=== PATIENT | male | born 1950 | race Caucasian/White ===

== ENCOUNTER 2019-07-17 21:24 | Emergency (ER) | payer OTHER ==
--- OUTSIDE RECORDS SUMMARY | 2019-07-17 21:26 | XMS REPORT | Clinical Summary ---
:1950 Author Organization [facility] Address [address] [place] [address] Care Team Providers Name Role Phone Huang Primary Care Provider Allergies No Known Allergies Medications Medication Sig Dispensed Refills Start Date End Date Status atorvastatin Take 40 mg by mouth 0 Active (LIPITOR) 40 MG daily. tablet gabapentin Take 300 mg by mouth 0 Active (NEURONTIN) 300 MG daily. capsule glyBURIDE-metFORMIN Take 1 tablet by 0 Active (GLUCOVANCE) 5-500 mouth 2 (two) times mg per tablet daily. insulin detemir Inject 30 Units 0 Active (LEVEMIR) 100 subcutaneously every unit/mL morning . injectionIndications : type 2 diabetes mellitus acetaminophen Take 1,000 mg by 0 Active (TYLENOL) 500 MG mouth every 6 (six) tablet hours as needed for Pain. insulin detemir Inject 30 Units 0 Active (LEVEMIR) 100 subcutaneously unit/mL nightly. injectionIndications : type 2 diabetes mellitus oxybutynin Take 1 tablet (5 mg 30 tablet 0 09/10/2016 Active (DITROPAN) 5 MG total) by mouth 3 tablet (three) times daily as needed (for bladder spasm) for up to 30 doses. 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 May require drainage after bleeding controlled Renal mass 08/17/2016 Social History Tobacco Use Types Packs/Day Years Used Date Former Smoker 25 Smokeless Tobacco: Current User Snuff Comments: quit smoking 20 yrs ago Alcohol Use Drinks/Week oz/Week Comments Yes occasionally Sex Assigned at Date Recorded Not on file Job Start Date Occupation Industry Not on file Not on file Not on file Travel History Travel Start Travel End No recent travel history available. Last Filed Vital Signs Not on file Plan of Treatment Not on file Results Not on fileafter 07/16/2018 Insurance Payer Benefit Plan / Group Subscriber ID Type Phone Address MEDICARE MEDICARE A B xxxxxxxxxx Medicare Advance Directives For more information, please contact:[address] [phone] Code Status Date Activated Date Inactivated Comments Full Code 09/05/2016 7:37 PM 09/10/2016 5:06 PM This code status was determined by: Patient Full Code 09/04/2016 11:18 PM 09/05/2016 7:37 PM This code status was determined by: Patient Full Code 08/26/2016 7:33 AM 08/27/2016 4:31 PM This code status was determined by: Patient Full Code 08/17/2016 7:51 PM 08/19/2016 8:24 PM This code status was determined by: Patient
--- OUTSIDE RECORDS SUMMARY | 2019-07-17 21:27 | XMS REPORT | Continuity of Care Document ---
:1950 Author Organization [facility] Address [address] [place] [address] Phone Unavailable Care Team Providers Name Role Phone HORTENSIA RENTERIA Primary Care Physician Insurance Providers Guarantor Sotero Menendez Address [address] [place] [address] Email NONE Payer [facility] Policy Number [id number] Subscriber's Name Sotero Menendez Relationship Self / Same As Patient Group Number [id number] Group Name NA Advance Directives Directive Response Recorded Date/Time Advance Directives No 04/03/16 8:25pm Advance Directive on File No 12/11/18 2:19pm Directive to Physicians/Living Will No 04/03/16 5:08pm Health Care Proxy No 04/03/16 5:08pm Name of Surrogate/Decision Maker NA 12/11/18 2:21pm Organ Donor No 04/03/16 5:08pm Medical Power of Registration Manager No 04/03/16 5:08pm Patient/Family Given Education Material R/T Y - 02--...MP 12/11/18 2: 21pm Directives? Chief Complaint and Reason for Visit Chief Complaint Neuro Symptoms/ Deficits Reason for Visit CVA (cerebral vascular accident) NSTEMI (non-ST elevated myocardial infarction) Problems Medical Problem Onset Date Status Anemia Unknown Acute Chest pain Unknown Acute HTN (hypertension) Unknown Chronic Hematuria Unknown Acute History of renal cell cancer Unknown Chronic Hypoglycemia Unknown Acute Hyponatremia Unknown Leukocytosis Unknown Acute Perinephric hematoma Unknown Acute Postoperative urinary retention Unknown Acute Seizure Unknown Acute Urinary tract infection Unknown Resolved Past Problems Medical Problem Onset Date Status Abdominal pain Unknown Acute Avulsion of skin of face Unknown Acute CVA (cerebral vascular accident) Unknown Acute Diabetes mellitus with hyperglycemia Unknown Acute Elevated lipase Unknown Acute Facial laceration Unknown Acute History of kidney cancer Unknown Acute Left flank pain Unknown Acute NSTEMI (non-ST elevated myocardial infarction) Unknown Acute Pyelonephritis Unknown Acute Syncope Unknown Acute Uncontrolled diabetes mellitus Unknown Acute Medications Current Home Medications Medication Dose Units Route Directions Days Qty Instructions Start Date Acetaminophen 2 Tab ORAL Every 6 (Tylenol *) 500 Hours Mg Tab (02-15--) as needed for Pain Aspirin (Aspirin 81 Mg ORAL Daily for 30 Chew *) 81 Mg Chw Cad Tab 8 Atorvastatin * 40 Mg ORAL Once Daily 90 (Lipitor *) 40 At Bedtime Tablet Mg Tab Cefdinir 300 Mg 300 Mg ORAL Twice A Day 14 Cap Cap for Uti 8 Detemir 30 Units SUBCUTANEOUS Every 12 (Levemir) 100 Hours Unit/Ml Inj Enalapril 5 Mg ORAL Daily 30 Maleate (Vasotec Tablet 5 Mg*) 5 Mg Tab Levetiracetam 500 Mg ORAL Twice A Day 60 (Keppra 500 Mg*) for Seizures Tablet 8 500 Mg Tab Metformin Hcl 1 Tab ORAL Twice A Day (Glucophage *) 500 Mg Tab Past Home Medications Medication Directions Ordered Status Cefdinir 300 Mg Cap, 300 Mg Oral Every 12 Hours for Fever 03/15/18 Discontinued Enalapril Maleate (Enalapril Maleate Daily Discontinued 10 Mg) 10 Mg Tab, 1 Tab Oral Glyburide/Metformin (Glucovance 5/500 Twice A Day Discontinued Mg *) 1 Ea Tab, 2 Tab Oral Insulin Asp Prt/Insulin Aspart * Every Morning Discontinued (Novolog Mix 70/30 Flexpen *) Inj, 45 Units Subcutaneous Insulin Asp Prt/Insulin Aspart * Every Evening Discontinued (Novolog Mix 70/30 Flexpen *) Inj, 20 Unit Subcutaneous Insulin Detemir (Levemir 100 Units/Ml Every Morning Discontinued Insulin*) 100 Units/ Inj, 50 Units Subcutaneous Levofloxacin (Levaquin 500 Mg*) 500 Mg Daily 09/04/16 Discontinued Tab, 1 Tab Oral Metformin Hcl (Glucophage 1000 Mg *) 1 Every Morning Discontinued 000 Tab, 1500 Mg Oral Metformin Hcl (Glucophage 1000 Mg *) 1 Every Evening Discontinued 000 Tab, 1000 Mg Oral Nitroglycerin (Nitrostat 0.4 Mg *) 0.4 As Directed 04/04/16 Discontinued Mg Sub, 1 Tab Sublingual Simvastatin (Simvastatin *) 40 Mg Tab, Once Daily At Bedtime Discontinued 40 Mg Oral Social History Social History Problem Response Recorded Date/Time Onset Date Status History of kidney surgery 08/24/2016 6:40pm Unknown Active Hx Alcohol Use Y - ONCE IN A WHILE 04/06/2018 8:45pm Not Applicable Not Applicable Hx Physical Abuse No 12/11/2018 2:19pm Not Applicable Not Applicable Smoking Status Start Date Stop Date Former smoker Hospital Discharge Instructions No hospital discharge instruction information available. Plan of Care Discharge Date 12/11/18 3:55pm Forms Provided Portal Welcome Letter Prescriptions See Medication Section Referrals HORTENSIA RENTERIA Address: [address] [place] [id number] Functional Status No functional status information available. Allergies, Adverse Reactions, Alerts Allergen Type Severity Reaction Status Last Updated No Known Allergies Allergy Unknown Active 02/14/14 Immunizations Immunization Event Date Type Not Given Dose Number Lot Number Senior Software Qa Engineer Reason TDaP 04/06/18 Administered 1 [id number] SANOFI PS Vital Signs Acute Vital Signs Vital Response Date/Time Blood Pressure 158/83 mm Hg 12/11/2018 4:26pm Pulse Pulse Rate (adult) 81 beats per minute (60 - 100) 12/11/2018 4:26pm Respiratory Rate 20 breaths per minute (10 - 24) 12/11/2018 4:26pm Temperature Source Oral 12/11/2018 4:26pm Height 5 ft 7 in 12/11/2018 2:19pm Weight 185 lb 12/11/2018 2:19pm Body Mass Index 29.0 kg/m^2 12/11/2018 2:19pm Results Laboratory Results Test Name Result Units Flags Reference Collection Result Comments Date/Time Date/Time White Blood 5.1 K/ul 4.0-12.3 12/11/2018 12/11/2018 Count 2:45pm 2:50pm Red Blood Count 4.47 M/ul 3.80-5.80 12/11/2018 12/11/2018 2:45pm 2:50pm Hemoglobin 12.9 g/dl 11.67-17.2 12/11/2018 12/11/2018 2 2:45pm 2:50pm Hematocrit 40.3 % # 35.0-51.0 12/11/2018 12/11/2018 2:45pm 2:50pm Mean Corpuscular 90.2 fl 78-96 12/11/2018 12/11/2018 Volume 2:45pm 2:50pm Mean Corpuscular 28.8 pg 26.8-33.4 12/11/2018 12/11/2018 Hemoglobin 2:45pm 2:50pm Mean Corpuscular 32.0 g/dl L 32.3-36.7 12/11/2018 12/11/2018 Hemoglobin 2:45pm 2:50pm Concent Red Cell 12.9 % 11.6-15.4 12/11/2018 12/11/2018 Distribution 2:45pm 2:50pm Width Platelet Count 179 K/ul 115-328 12/11/2018 12/11/2018 2:45pm 2:50pm Mean Platelet 10.8 fl 8.4-11.8 12/11/2018 12/11/2018 Volume 2:45pm 2:50pm Neutrophils (%) 64.2 % 44.7-82.4 12/11/2018 12/11/2018 (Auto) 2:45pm 2:50pm Lymphocytes (%) 25.2 % 10.0-50.0 12/11/2018 12/11/2018 (Auto) 2:45pm 2:50pm Monocytes (%) 7.6 % 3.9-13.4 12/11/2018 12/11/2018 (Auto) 2:45pm 2:50pm Eosinophils (%) 1.9 % 0.0-6.43 12/11/2018 12/11/2018 (Auto) 2:45pm 2:50pm Basophils (%) 1.2 % H 0.0-0.72 12/11/2018 12/11/2018 (Auto) 2:45pm 2:50pm Prothrombin Time 9.3 SECONDS L 10.3-12.3 12/11/2018 12/11/2018 2:45pm 3:01pm THERAPEUTIC LEVEL: 1.5 to 1.9 times normal range of PT Prothromb Time 0.84 12/11/2018 12/11/2018 International 2:45pm 3:01pm Recommended therapeutic range for patients receiving Ratio warfarin (coumadin) therapy: INR is 2.0 to 3.0 Recommended range for patients with mechanical prosthetic heart valves: INR is 2.5 to 3.5 Activated 24.8 SECONDS 22.5-37.0 12/11/2018 12/11/2018 Partial 2:45pm 3:01pm Thromboplast Time Urine Color LIGHT 12/11/2018 12/11/2018 YELLOW 3:53pm 4:14pm Urine Appearance CLEAR CLEAR 12/11/2018 12/11/2018 3:53pm 4:14pm Urine Glucose 4+ (1000 H NEGATIVE 12/11/2018 12/11/2018 mg/dL) 3:53pm 4:14pm Urine Bilirubin NEGATIVE NEGATIVE 12/11/2018 12/11/2018 3:53pm 4:14pm Urine Ketones NEGATIVE NEGATIVE 12/11/2018 12/11/2018 3:53pm 4:14pm Urine Specific 1.019 1.003-1.03 12/11/2018 12/11/2018 Kimberly 0 3:53pm 4:14pm Urine Blood 1+ H NEGATIVE 12/11/2018 12/11/2018 (SMALL) 3:53pm 4:14pm Urine pH 6.500 5-9 12/11/2018 12/11/2018 3:53pm 4:14pm Urine Protein 3+ (300 H NEGATIVE 12/11/2018 12/11/2018 mg/dL) 3:53pm 4:14pm Urine NORMAL mg/dL 0.2-1.0 12/11/2018 12/11/2018 Urobilinogen 3:53pm 4:14pm Urine Nitrate NEGATIVE NEGATIVE 12/11/2018 12/11/2018 3:53pm 4:14pm Urine Leukocyte NEGATIVE NEGATIVE 12/11/2018 12/11/2018 Esterase 3:53pm 4:14pm Urine RBC 1-5 /hpf 0-5 12/11/2018 12/11/2018 3:53pm 4:14pm Urine WBC <1 /hpf 0-5 12/11/2018 12/11/2018 3:53pm 4:14pm Urine Epithelial <1 /hpf 0-5 12/11/2018 12/11/2018 Cells 3:53pm 4:14pm Urine Bacteria None /hpf None 12/11/2018 12/11/2018 Detected Detect 3:53pm 4:14pm Urine Casts None /lpf None 12/11/2018 12/11/2018 Detected Detect 3:53pm 4:14pm Urine Culture NO 12/11/2018 12/11/2018 Reflexed 3:53pm 4:14pm Random Glucose 347 mg/dL H 82-115 12/11/2018 12/11/2018 2:45pm 3:06pm Blood Urea 25 mg/dL H 8-23 12/11/2018 12/11/2018 Nitrogen 2:45pm 3:06pm Serum Osmolality 283 280-300 12/11/2018 12/11/2018 2:45pm 3:06pm Creatinine 1.5 mg/dL H 0.70-1.20 12/11/2018 12/11/2018 2:45pm 3:06pm Glomerular 46.82 L 12/11/2018 12/11/2018 GFR RESULTS ARE REPORTED IN mL/min/1.73m2. Filtration Rate 2:45pm 3:06pm Calc Normal GFR: >60mL/min Moderately decreased GFR: 30-59 mL/min Severely decreased GFR: 15-29 mL/min Kidney Failure (or Dialysis): <15 mL/min The calculated eGFR is not valid for patients younger than 18 years or older than 75 years. BUN/Creatinine 16.7 12-12/11/2018 12/11/2018 Ratio 2:45pm 3:06pm Sodium Level 132 mmol/L L 135-145 12/11/2018 12/11/2018 2:45pm 3:06pm Potassium Level 4.3 mmol/L 3.5-5.2 12/11/2018 12/11/2018 2:45pm 3:06pm Chloride Level 100 mmol/L 98-108 12/11/2018 12/11/2018 2:45pm 3:06pm Carbon Dioxide 23 mmol/L 21-32 12/11/2018 12/11/2018 Level 2:45pm 3:06pm Anion Gap 13.3 mEq/L 12-12/11/2018 12/11/2018 2:45pm 3:06pm Calcium Level 9.4 mg/dL 8.8-10.2 12/11/2018 12/11/2018 2:45pm 3:06pm Total Protein 7.8 g/dL 6.6-8.7 12/11/2018 12/11/2018 2:45pm 3:06pm Albumin 3.7 g/dL 3.5-5.2 12/11/2018 12/11/2018 2:45pm 3:06pm Globulin 4.1 gm/dL 12/11/2018 12/11/2018 2:45pm 3:06pm Albumin/Globulin 0.9 >1.0 12/11/2018 12/11/2018 Ratio 2:45pm 3:06pm Total Bilirubin 0.5 mg/dL 0.0-1.2 12/11/2018 12/11/2018 2:45pm 3:06pm Aspartate Amino 12 U/L L 15-40 12/11/2018 12/11/2018 Transf 2:45pm 3:06pm (AST/SGOT) Alanine 12 U/L 0-41 12/11/2018 12/11/2018 Aminotransferase 2:45pm 3:06pm (ALT/SGPT) Total Alkaline 163 U/L H 40-130 12/11/2018 12/11/2018 Phosphatase 2:45pm 3:06pm Creatine Kinase 95 U/L 20-200 12/11/2018 12/11/2018 2:45pm 3:06pm Troponin I < 0.30 ng/mL 0.0-0.5 12/11/2018 12/11/2018 Published clinical studies have shown elevations of cTnI in 2:45pm 3:09pm patients with myocardial injury, as seen in unstable angina pectoris, cardiac contusions, and heart transplants. Elevations have also been seen in patients with rhabdomyolysis and polymyositis. Elevated troponin levels point to myocardial injury, but are not necessarily indicative of an ischemic mechanism. The term ND should be used when there is evidence of cardiac damage, as detected by marker proteins in a clinical setting consistent with myocardial ischemia. If the clinical circumstance suggests that an ischemic mechanism is unlikely, other causes of cardiac injury should be considered. For diagnostic purposes, the results should always be assessed in conjunction with the patient's medical history, clinical examination and other findings. Creatine Kinase 5.1 ng/ml H 0.0-3.6 12/11/2018 12/11/2018 MB 2:45pm 3:09pm DIAGNOSTIC CITERIA: CKMB CKMB RELATIVE INDEX SUGGESTIVE OF NON-AMI < or=5 N/A JONES ZONE (INCONCLUSIVE) > 5 < or=4 SUGGESTIVE OF AMI >5 > 4 Procedures Procedure Status Date Provider(s) Computed tomography of head without contrast Completed 12/11/18 ADEEL FAM MD X-ray of chest, single view Completed 12/11/18 ADEEL FAM MD Encounters Encounter Location Arrival/Admit Date Discharge/Depart Date Attending Provider Departed [place] 12/11/18 2:16pm 12/11/18 3:55pm [facility], Emergency Room [facility] Recent Diagnosis
--- OUTSIDE RECORDS SUMMARY | 2019-07-17 21:27 | XMS REPORT | Encounter Summary ---
:1950 Author Care Team Providers Name Role Phone Rigoberto Vann MD Primary Care Provider [phone] Reason for Visit Follow Up Visit Instructions 1. Closed trimalleolar fracture of left ankle orthopedic referral Discussion Note: None recorded.Patient educational handouts: No information available. Plan of Care Reminders Provider Appointments None recorded. Lab None recorded. Referral Orthopedic Trae Panchavi Referral 06/08/2019 MD Procedures None recorded. Surgeries None recorded. Imaging None recorded. Medications Name Start Date enalapril maleate 5 mg tablet Levemir FlexTouch U-100 Insulin 100 unit/mL (3 mL) subcutaneous pen metformin 500 mg tablet tramadol 50 mg tablet Take 1 tablet every 6 hours by oral route. Medications Administered None recorded. Vitals Height Weight BMI Blood Pressure 67 in 185 lbs 29 kg/m2 98/64 mm[Hg] Lab Results None recorded. Allergies Code Code System Name Reaction Severity Status Onset NKDA Problems Name Status Onset Date Source Blood in Urine Active Encounter Procedures None recorded. Vaccine List None recorded. Social History Tobacco Smoking Status Never Smoker Past Encounters 06/08/2019 Closed Trimalleolar Fracture of Left Ankle Joesph Izaguirre MD: [address] [facility] [address], [place] [address], Ph. [phone] 06/05/2019 Closed Trimalleolar Fracture of Left Ankle; Coronary Arteriosclerosis in Alutiiq Artery; History of Coronary Artery Bypass Grafting; Essential Hypertension; Mixed Hyperlipidemia; Cerebrovascular Disease; Type 2 Diabetes Mellitus without Complication Rigoberto Vann MD: [address] [facility], [address], [place] [address], Ph. History of Present Illness Ankle Reported By: Patient HPI: Location: left. Quality: aching. Severity: moderate. Duration: continuous since onset. Timing: acute. Context: fall. Alleviating Factors: nothing helps. Previous Surgery: none. Prior Imaging: x ray. Previous Injections: none. Previous PT: none. Work Related: no. Working: no Review of Systems None recorded. Physical Exam Ankle/Foot Reported By: Patient Psychiatric: Orientation: oriented to time, oriented to place, oriented to person. Mood and Affect: active and alert, normal mood, normal affect Ankles and Feet: Inspection Left: ; let ankle in splint evidence of eigth bearing obvious deformity and subluxation is present reveiew of xrays 20 days prior reveal minmallly displace trimallolar ankle fracture pavan subluxed at this point. Inspection of the Toes Right: ; splint is removed and reasplinted in some reduction the medial skin envelope is clearly threatend and there is obvios threatend viability in the medial ankle skin will likely re external fixation at this point will refer to tertiary center for now jayla
--- OUTSIDE RECORDS SUMMARY | 2019-07-17 21:27 | XMS REPORT ---
:1950 Author Organization [facility] Address [address] [place] [address] Care Team Providers Name Role Phone Unavailable Unavailable Unavailable Problems This patient has no known problems. Allergies, Adverse Reactions, Alerts This patient has no known allergies or adverse reactions. Medications This patient has no known medications. Encounters Start End Encounter Admission Attending Care Care Encounter Date/Time Date/Time Type Type Clinicians Facility Department ID 2018-12-11 Inpatient U [facility] [id number] 17:29:00
--- OUTSIDE RECORDS SUMMARY | 2019-07-17 21:27 | XMS REPORT | Summary of Care ---
:1950 Author Organization [facility] Address [address] [place] [id number] Care Team Providers Name Role Phone Faviola Ortiz Monica Primary Care Provider Reason for Referral Radiology Services (Routine) Status Reason Specialty Diagnoses / Referred By Referred To Procedures Contact Contact New Request Diagnostic Diagnoses Deformity of left ankle joint Panchbhavi, Radiology Procedures XR ANKLE 3+ VW BILATERAL MD Trae [address] [place] [address] Radiology Services (Routine) Status Reason Specialty Diagnoses / Referred By Referred To Procedures Contact Contact New Request Diagnostic Diagnoses Deformity of left ankle joint Panchbhavi, Radiology Procedures XR FOOT 3+ VW BILATERAL MD Trae [address] [place] [id number] Reason for Visit Reason Comments New Patient left ankle pain (Routine) Status Reason Specialty Diagnoses / Referred By Referred To Procedures Contact Contact New Request ORT-ORTHOPAEDIC Diagnoses Broken ankle, left, closed, initial encounter LEFT BROKEN ANKLE06/09 @ 2:45 LVM to offer sooner appt/nrl [facility] Panchbhavi, SURGERY / Procedures CONSULT/REFERRAL ORTHOPAEDIC SURGERY NEW VISIT (FIRST TIME) Faculty MD [facility] [address] [place] [id number] [place] [address] Phone: [phone] Phone: Encounter Details Date Type Department Care Team Description 06/19/2019 Office Visit [facility] Orthopaedic Panchbhavi, Deformity of left Surgery- [place] MD Tra[facility] ankle joint (Primary [place] [address]) [address] [place], [place] [address] [place], [place] [phone] Allergies No Known Allergiesdocumented as of this encounter (statuses as of 06/19/2019) Medications Medication Sig Dispensed Refills Start Date End Date Status LEVEMIR FLEXTOUCH U-100 INJECT 35 UNITS 0 06/09/2019 Active INSULN 100 unit/mL (3 TWICE DAILY SUB-Q mL) injection metFORMIN 500 mg tablet TAKE 1 TABLET BY 0 06/16/2019 Active MOUTH TWICE DAILY WITH MORNING AND EVENING MEALS traMADol 50 mg tablet TAKE ONE TABLET 0 05/23/2019 Active BY MOUTH TWICE DAILY NEEDED FOR PAIN insulin detemir U-100 inject 30 Units 0 Active 100 unit/mL injection under the skin. glyBURIDE-metformin Take 1 tablet by 0 Active 5-500 mg tablet mouth. enalapril 5 mg tablet Take 5 mg by 0 Active mouth. atorvastatin 40 mg Take 40 mg by 0 Active tablet mouth. acetaminophen-codeine Take 1 tablet by 0 Active 300-30 mg tablet mouth. acetaminophen 500 mg Take 1,000 mg by 0 Active tablet mouth. documented as of this encounter (statuses as of 06/19/2019) Active Problems Not on filedocumented as of this encounter (statuses as of 06/19/2019) Social History Tobacco Use Types Packs/Day Years Used Date Former Smoker Smokeless Tobacco: Never Used Sex Assigned at Date Recorded Not on file Job Start Date Occupation Industry Not on file Not on file Not on file Travel History Travel Start Travel End No recent travel history available. documented as of this encounter Last Filed Vital Signs Vital Sign Reading Time Taken Comments Blood Pressure - - Pulse - - Temperature 36.3 C (97.3 F) 06/19/2019 11:16 AM CDT Respiratory Rate - - Oxygen Saturation - - Inhaled Oxygen Concentration - - Weight - - Height - - Body Mass Index - - documented in this encounter Progress Notes Ricky Kate DO - 06/19/2019 11:30 AM CDT ORTHOPAEDIC CLINIC NOTE Patient: Sotero Francois Patient Age: [age] year old Gender: male SUBJECTIVE: CC: left ankle pain HISTORY OF PRESENT ILLNESS Sotero Francois is a 68 year old male who presents with a one month old fracture dislocation of theankle. Send from [facility] Lives in [address] [place] [address]. PAST HISTORIES PMH of diabetes and CAD with coronary intervention No reported previous ankle procedures Family history non contributory MEDICATIONS Current Outpatient Medications Medication Sig Dispense Refill acetaminophen 500 mg tablet Take 1,000 mg by mouth. acetaminophen-codeine 300-30 mg tablet Take 1 tablet by mouth. atorvastatin 40 mg tablet Take 40 mg by mouth. enalapril 5 mg tablet Take 5 mg by mouth. glyBURIDE-metformin 5-500 mg tablet Take 1 tablet by mouth. insulin detemir U-100 100 unit/mL injection inject 30 Units under the skin. LEVEMIR FLEXTOUCH U-100 INSULN 100 unit/mL (3 mL) injection INJECT 35 UNITS TWICE DAILY SUB-Q 0 metFORMIN 500 mg tablet TAKE 1 TABLET BY MOUTH TWICE DAILY WITH MORNING AND EVENING MEALS 0 traMADol 50 mg tablet TAKE ONE TABLET BY MOUTH TWICE DAILY NEEDED FOR PAIN 0 No current facility-administered medications for this visit. ALLERGIES No Known Allergies SOCIAL Social History Occupational History Not on file Tobacco Use Smoking status: Former Smoker Smokeless tobacco: Never Used Substance and Sexual Activity Alcohol use: Not on file Drug use: Not on file Sexual activity: Not on file REVIEW OF SYSTEMS Pertinent ROM can be found in HPI OBJECTIVE: PHYSICAL EXAMINATION CONSTITUTIONAL: Temp 36.3 C (97.3 F) (Temporal Artery) Constitutional: No acute distress, appears adequately nurished Eyes: extraocular movements intact, conjunctivae pink ENMT: normal hearing, trachea midline, ears symmetrical CV: normal peripheral perfusion, regular rate Respiratory: breaths nonlabored, symmetrical chest expansion, no respiratory distress GI: abdomen non-distended, no gross deformity Skin: warm and dry, no pallor Neurologic: no focal deficits, vocalizing demands Psychiatric: A&OX3; Appropriate affect Musculoskeletal: Obvious deformity of the left ankle Skin amenable to surgical intervention Neurovascularly intact IMAGING Xray imaging reviewed and supports the diagnosis below LABS Laboratory analysis not indicated for current encounter Independently reviewed current and previous imaging for comparison, if applicable, as well as relevant previous or current lab results. Physical exam finding have been adequately explained to the patient ASSESSMENT AND PLAN ASSESSMENT Sotero Francois is a 68 year old /White male with a PMH of diabetes and CAD with intervention(triple bypass) with 1 month old fracture/dislocation of the left ankle PLAN: We have discussed all the treatment options and have agreed upon: Staged procedure Stage I OR -External multiplanar external fixator for progressive lengthening of left ankle -Achilles tendon lengthen on the left A clear explanation was given to the patient regarding the condition present, and the available conservative and surgical options. It was emphasized that the risks and benefits of surgery include but are not limited to infection, wound healing problems, damage to adjacent structures such as nerves, blood vessels and tendons, assisted disability and pain, arthritis, hypersensitivity, deep vein thrombosis, pulmonary embolism, broken hardware, failure of surgery, need for further procedures at time ofsurgery or later, cast related problems, loss of limb or life. The patient was given an explanation and the patient voiced understanding of what to expect after the surgery, the limitations, the likely duration for post operative recovery and the instructions that are to be followed. At the end the patient was invited to seek clarification or ask further questions but there were none. The patient voiced understanding of the entire consultation and was given contact details to get in touch with us or emergency services as and when needed. Informed consent discussed with the patient, including: condition, proposed care , treatments and services, alternative forms of treatment, and risks of no treatment. Details discussed around the procedures to be used, and the risks and hazards involved, potential benefits, and side effects of the patients proposed care, treatment, and services; the likelihood of the patient achieving his or her goals; and any potential problems that might occur during recuperation. Reasonable alternative also discussed with the patients proposed care, treatment, and services. The discussion encompasses risks, benefits, and side effects related to the alternative and risks related to not receiving the proposed care, treatment, and services. -Splint to left ankle Spent a significant amount of time going over patient's symptoms, physical exam findings, imaging findings, and treatment plan.I discussed my findings and educated patient on the condition present. Allquestions were answered appropriately and to the patient's satisfaction. Ricky Kate DO Orthopaedics Department PGY-2 Pager: [phone] 06/19/2019 documented in this encounter Plan of Treatment Health Maintenance Due Date Last Done Comments HEPATITIS C (HCV) SCREEN 1950 DTaP,Tdap,and Td Vaccines (1 - Tdap) 1971 COLONOSCOPY 2002 Zoster Recombinant Vaccine (SHINGRIX) (1 of 2) 2002 Medicare Wellness Visit 2017 PNEUMOCOCCAL VACCINES 65+ (1 of 2 - PCV13) 2017 INFLUENZA VACCINE 07/09/2019 documented as of this encounter Results XR ANKLE 3+ VW BILATERAL (06/19/2019 11:53 AM CDT) Specimen Impressions Performed At PACS/VR/DOSE Displaced left posterior/medial malleolar and distal fibular fractures with dislocation of the left ankle joint with a subacute appearance. Remote right lateral talar process/lateral malleolus avulsions. Narrative Performed At EXAM: PACS/VR/DOSE XR ANKLE 3+ VW BILATERAL, EXAM: XR FOOT 3+ VW BILATERAL HISTORY: deformity COMPARISON: None FINDINGS: Imaging of the left and right foot and left and right ankle demonstrates diabetic type vascular calcifications. Left-sided posterior lateral tibial talar dislocation is seen with displaced fractures through the distal fibula, posterior malleolus and medial malleolus. Marked valgus angulation of the talus is present. Minimal swelling surrounds this ankle and foot. A remote right lateral malleolus/lateral talar process avulsion is seen. The right ankle mortise is anatomic. Procedure Note [facility], Radiant Results Inft User - 06/19/2019 12:01 PM CDT EXAM: XR ANKLE 3+ VW BILATERAL, EXAM: XR FOOT 3+ VW BILATERAL HISTORY: deformity COMPARISON: None FINDINGS: Imaging of the left and right foot and left and right ankle demonstrates diabetic type vascular calcifications. Left-sided posterior lateral tibial talar dislocation is seen with displaced fractures through the distal fibula, posterior malleolus and medial malleolus. Marked valgus angulation of the talus is present. Minimal swelling surrounds this ankle and foot. A remote right lateral malleolus/lateral talar process avulsion is seen. The right ankle mortise is anatomic. IMPRESSION Displaced left posterior/medial malleolar and distal fibular fractures with dislocation of the left ankle joint with a subacute appearance. Remote right lateral talar process/lateral malleolus avulsions. Performing Organization Address City/State/Zipcode Phone Number PACS/VR/DOSE XR FOOT 3+ VW BILATERAL (06/19/2019 11:53 AM CDT) Specimen Impressions Performed At PACS/VR/DOSE Displaced left posterior/medial malleolar and distal fibular fractures with dislocation of the left ankle joint with a subacute appearance. Remote right lateral talar process/lateral malleolus avulsions. Narrative Performed At EXAM: PACS/VR/DOSE XR ANKLE 3+ VW BILATERAL, EXAM: XR FOOT 3+ VW BILATERAL HISTORY: deformity COMPARISON: None FINDINGS: Imaging of the left and right foot and left and right ankle demonstrates diabetic type vascular calcifications. Left-sided posterior lateral tibial talar dislocation is seen with displaced fractures through the distal fibula, posterior malleolus and medial malleolus. Marked valgus angulation of the talus is present. Minimal swelling surrounds this ankle and foot. A remote right lateral malleolus/lateral talar process avulsion is seen. The right ankle mortise is anatomic. Procedure Note [facility], Radiant Results Inft User - 06/19/2019 12:01 PM CDT EXAM: XR ANKLE 3+ VW BILATERAL, EXAM: XR FOOT 3+ VW BILATERAL HISTORY: deformity COMPARISON: None FINDINGS: Imaging of the left and right foot and left and right ankle demonstrates diabetic type vascular calcifications. Left-sided posterior lateral tibial talar dislocation is seen with displaced fractures through the distal fibula, posterior malleolus and medial malleolus. Marked valgus angulation of the talus is present. Minimal swelling surrounds this ankle and foot. A remote right lateral malleolus/lateral talar process avulsion is seen. The right ankle mortise is anatomic. IMPRESSION Displaced left posterior/medial malleolar and distal fibular fractures with dislocation of the left ankle joint with a subacute appearance. Remote right lateral talar process/lateral malleolus avulsions. Performing Organization Address City/State/Zipcode Phone Number PACS/VR/DOSE documented in this encounter Visit Diagnoses Diagnosis Deformity of left ankle joint - Primary documented in this encounter Insurance Payer Benefit Plan / Subscriber ID Effective Phone Address Type Group Dates UNITED AARP MEDICARE [id number] 2018-Prese Medicare Adv HEALTHCARE - COMPLETE nt HMO MANAGED MEDICARE [address] (Home) [place]ENZU[place] [phone] (Work) documented as of this encounter
--- OUTSIDE RECORDS SUMMARY | 2019-07-17 21:27 | XMS REPORT | Continuity of Care Document ---
:1950 Author Organization [facility] Address [address] [place] [address] Phone Unavailable Care Team Providers Name Role Phone HORTENSIA RENTERIA Primary Care Physician Insurance Providers Guarantor Savana Menendez Address [address] [place] [address] Email NONE Payer [facility] Policy Number [id number] Subscriber's Name Savana Menendez Relationship Self / Same As Patient Group Number [id number] Group Name NA Advance Directives Directive Response Recorded Date/Time Advance Directives No 04/03/16 8:25pm Advance Directive on File No 05/18/19 4:00pm Directive to Physicians/Living Will No 04/03/16 5:08pm Health Care Proxy No 04/03/16 5:08pm Organ Donor No 04/03/16 5:08pm Medical Power of Research Biostatistician No 04/03/16 5:08pm Patient/Family Given Education Material R/T Y - 05/18/19...ELG 05/18/19 4: 38pm Directives? Chief Complaint and Reason for Visit Chief Complaint Extremity Pain/Injury Reason for Visit Fracture of ankle Problems Medical Problem Onset Date Status Anemia [...] lipase Unknown Acute Facial laceration Unknown Acute Fracture of ankle Unknown Acute History of kidney cancer Unknown Acute Left flank pain Unknown Acute NSTEMI (non-ST elevated myocardial infarction) Unknown Acute Post-operative pain Unknown Acute Pyelonephritis Unknown Acute Syncope Unknown Acute Uncontrolled diabetes mellitus Unknown Acute Medications Current Home Medications Medication Dose Units Route Directions Days Qty Instructions Start Date Acetaminophen 2 Tab ORAL Every 6 (Tylenol *) 500 Hours Mg Tab (--16-22) as needed for Pain Aspirin 81 Mg ORAL Daily for 30 Chew (Aspirin *) 81 Cad Tab 8 Mg Chw Atorvastatin * 80 Mg ORAL Once Daily 90 (Lipitor *) 40 At Bedtime Tablet Mg Tab Detemir 35 Units SUBCUTANEOUS Every 12 (Levemir) 100 Hours Unit/Ml Inj Enalapril 5 Mg ORAL Daily 30 Maleate Tablet (Vasotec 5 Mg*) 5 Mg Tab Metformin Hcl 1 Tab ORAL Twice A Day (Glucophage *) 500 Mg Tab Metoprolol 25 Mg ORAL Twice A Day 30 60 Tartrate Days Tablet (Lopressor *) 25 Mg Tab Ondansetron 1 Tab ORAL Every 8 4 Days 16 (Ondansetron Hours(16- Tablet Odt 4 Mg) 4 Mg 24) as Tab needed for Nausea/Vomit ing Tramadol Hcl 1 Tab ORAL Twice Daily 30 60 (Ultram *) 50 As Needed as Days Tablet 9 Mg Tab needed for Pain Past Home Medications Medication Directions Ordered Status Cefdinir 300 Mg Cap, 300 Mg Oral Twice A Day for Uti 04/09/18 Discontinued Cefdinir 300 Mg Cap, 300 Mg Oral [...] Insulin*) 100 Units/ Inj, 50 Units Subcutaneous Levetiracetam (Keppra 500 Mg*) 500 Mg Twice A Day for Seizures 04/09/18 Discontinued Tab, 500 Mg Oral Levofloxacin (Levaquin 500 Mg *) 500 Daily 09/04/16 Discontinued Mg Tab, 1 Tab Oral Metformin Hcl (Glucophage 1000 Mg *) 1 Every Morning Discontinued 000 Tab, 1500 Mg Oral Metformin Hcl (Glucophage 1000 Mg *) 1 Every Evening Discontinued 000 Tab, 1000 Mg Oral Nitroglycerin (Nitrostat 0.4 Mg *) 0.4 As Directed 04/04/16 Discontinued Mg Sub, 1 Tab Sublingual Simvastatin (Zocor *) 40 Mg Tab, 40 Mg Once Daily At Bedtime Discontinued Oral Social History Social History Problem Response Recorded Date/Time Onset Date Status History of kidney surgery 08/24/2016 6:40pm Unknown Active Hx Alcohol Use Y - ONCE IN A WHILE 04/06/2018 8:45pm Not Applicable Not Applicable Hx Physical Abuse No 05/18/2019 4:00pm Not Applicable Not Applicable Smoking Status Start Date Stop Date Former smoker Hospital Discharge Instructions No hospital discharge instruction information available. Plan of Care Discharge Date 05/18/19 6:50pm Condition at Discharge Stable Instructions/Education Provided Ankle Fracture Prescriptions See Medication Section Referrals HORTENSIA RENTERIA Address: [address] [place] [id number] Additional Instructions/Education PT WILL FOLLOW-UP WITH DR. BERMUDEZ [facility]. POSTERIOR AND ANKLE STIR UP SPLINT WAS APPLIED TO THE LEFT ANKLE WITH CRUTCHES AND PT IS STABLE ON DISCHARGE Functional Status No functional status information available. Allergies, Adverse Reactions, Alerts Allergen Type Severity Reaction Status Last Updated No Known Allergies Allergy Unknown Active 02/14/14 Immunizations Immunization Event Date Type Not Given Dose Number Lot Number Thermal Spray Operator Reason TDaP 04/06/18 Administered 1 [id number] SANOFI PS Vital Signs Acute Vital Signs Vital Response Date/Time Blood Pressure 133/73 mm Hg 05/18/2019 6:52pm Pulse Pulse Rate (adult) 88 beats per minute (60 - 100) 05/18/2019 6:52pm Respiratory Rate 18 breaths per minute (10 - 24) 05/18/2019 6:52pm Temperature Source Oral 05/18/2019 6:52pm Height 5 ft 7 in 05/18/2019 4:00pm Weight 280 lb 05/18/2019 4:00pm Body Mass Index 43.9 kg/m^2 05/18/2019 4:00pm Results No relevant diagnostic test, laboratory data and/or discharge summary information available. Procedures Procedure Status Date Provider(s) X-ray of left tibia and fibula, two views Completed 05/18/19 DEVEN BELL MD X-ray of left ankle, three or more views Completed 05/18/19 DEVEN BELL MD Encounters Encounter Location Arrival/Admit Date Discharge/Depart Date Attending Provider Departed [place] 05/18/19 3:23pm 05/18/19 6:50pm DEVEN BELL Emergency [facility] Recent Diagnosis
--- OUTSIDE RECORDS SUMMARY | 2019-07-17 21:27 | XMS REPORT | Encounter Summary ---
:1950 Author Care Team Providers Name Role Phone Rigoberto Vann MD Primary Care Provider [phone] Reason for Visit new patient Instructions 1. Closed trimalleolar fracture of left ankle orthopedic surgery referral 2. Coronary arteriosclerosis in [place] artery 3. History of coronary artery bypass grafting 4. Essential hypertension 5. Mixed hyperlipidemia 6. Cerebrovascular disease 7. Type 2 diabetes mellitus without complication Discussion Note: None recorded.Patient educational handouts: No information available. Plan of Care Reminders Provider Appointments Return to on or around Rigoberto Hickman Office 06/05/2019 MD Edwar Return to on or around Rigoberto Hickman Office 06/05/2019 MD Edwar Lab None recorded. Referral Orthopedic 06/05/2019 Joesph Izaguirre Surgery Referral Procedures None recorded. Surgeries None recorded. Imaging [...] Tobacco Smoking Status Never Smoker Past Encounters 06/05/2019 Closed Trimalleolar Fracture of Left Ankle; Coronary Arteriosclerosis in [place] Artery; History of Coronary Artery Bypass Grafting; Essential Hypertension; Mixed Hyperlipidemia; Cerebrovascular Disease; Type 2 Diabetes Mellitus without Complication Rigoberto Vann MD: [address] [place] [address], [address], [place] [address], Ph. History of Present Illness Musculoskeletal Pain Reported By: Patient HPI: Location: left ankle. Quality: sharp. Severity: same. Duration: ; 7--19, went to the ER. Timing: intermittent. Context: trauma; fall on concrete. Alleviating factors: rest, relieved by changing position. Aggravating factors: movement/positioning. Associated Symptoms: no fever, no weak limbs, no tingling, no numbness of the legs/feet. ADL (Activities of Daily Living) improve with medication Notes: On Tramadol for pain, xrays reveal a Trimalleolar fracture, mjild displacement. POSTERIOR ANKLE STIRRU UP SPLINT IN PLACE. Diabetes F/U Reported By: Patient HPI: Context: normal range of home blood sugars (in the low 100s), seeing eye doctor regularly, checking feet regularly. Associated Symptoms: no weight gain, no weight loss, no dizziness, no sweats, no headaches, no confusion, no increased thirst, no increased appetite, no increased urination, no blurred vision, no numbness of feet, no calluses on feet Hyperlipidemia Reported By: Patient HPI: Control: usually well controlled, improving, at goal. Compliance: compliant, compliant with diet, exercises. Complications: coronary artery disease Hypertension F/U Reported By: Patient HPI: Associated Symptoms: no dizziness, no lightheadedness, no chest pain, no shortness of breath, no palpitations, no edema, no calf pain with exertion. Lifestyle: regular exercise, limiting/avoiding salt. Medications: taking medications as directed, no side effects from medication Coronary Artery Disease F/U Reported By: Patient HPI: Severity: symptoms are improving, no chest discomfort with daily activities, has not needed to use Nitroglycerin. Context: non-smoker. Associated Symptoms: no chest pain, no neck pain, no left arm pain, no dyspnea with exertion, no sweating, no nausea, no stress Note: Left Renal Cell Cancer: s/p ;left partial nephrectomy 2016.Denies major issues.<div>
</div><div>
</div>& lt;div>
</div><div>
</div><div> Cerebrovascular Disease s/p CVA: no new deficits.</div> Review of Systems Comprehensive Adult Problem ROS Reported By: Patient Constitutional: Constitutional: good appetite, no fever, happy/content, normal activity level Eyes: Eyes: no eye pain, no blurry vision, no eye redness, no eye itchiness ENMT: ENMT: no ear pain, no ear discharge, no hearing loss, no mouth lesions Cardiovascular: Cardiovascular: no chest pain, normal heart rate Respiratory: Respiratory: no cough, no wheezing, no chest tightness, no pain with respiration, normal respiration Gastrointestinal: GI: no difficulty swallowing, no abdominal pain, no nausea, no vomiting, no diarrhea, no constipation, no blood in stools Genitourinary: : no discharge, no blood in urine, no pain with urination, no increase in frequency of urination, no voiding urgency, no testicular pain Musculoskeletal: Musculoskeletal: no joint swelling, no myalgia, soft tissue swelling, limited motion Skin: Skin: no pain, no itchiness, no flaking, no skin lesions Neurological symptoms: Neuro: no numbness, no weakness, no tingling, no burning, no shooting pain, no headache, no loss of consciousness Psychiatric: Psych: no depression, no anxiety, no insomnia Endocrine: Endocrine: normal drinking, no temperature intolerance Allergic/Immunologic: Allergy/Immunologic: no sneezing, no runny nose Physical Exam General Adult Exam - Male Reported By: Patient Constitutional: General Appearance: well-developed, obese. Level of Distress: NAD. Ambulation: ambulating normally Psychiatric: Insight: good judgement. Mental Status: active and alert, normal mood, normal affect. Orientation: to time, to place, to person Head: Head: normocephalic, atraumatic Eyes: Pupils: PERRLA. EOM: EOMI. Sclerae: non-icteric ENMT: Oropharynx: moist mucous membranes Neck: Neck: supple, trachea midline, FROM. Thyroid: no enlargement, non-tender, no nodules Lungs: Percussion: no dullness, flatness, or hyperresonance. Auscultation: breath sounds normal, good air movement Cardiovascular: Heart Auscultation: RRR, normal S1, normal S2, no murmurs, no rubs, no gallops. Neck vessels: no carotid bruits. Pulses including femoral / pedal: normal throughout Abdomen: Inspection and Palpation: soft, non-distended, no tenderness, no guarding Musculoskeletal:: Motor Strength and Tone: normal, normal tone. Joints, Bones , and Muscles: limited ROM. Extremities: no cyanosis, no edema, no varicosities Neurologic: Gait and Station: normal gait, normal station. Cranial Nerves: grossly intact. Sensation: grossly intact. Reflexes: DTRs 2+ bilaterally throughout Skin: Inspection and palpation: no rash, no lesions Back: Thoracolumbar Appearance: normal curvature
--- OUTSIDE RECORDS SUMMARY | 2019-07-17 21:27 | XMS REPORT | Continuity of Care Document ---
:1950 Author Organization [facility] Address [address] [place] [address] Phone Unavailable Care Team Providers Name Role Phone HORTENSIA RENTERIA Primary Care Physician Insurance Providers Guarantor Savana Menendez Address [address] [place] [address] Email NONE Payer [facility] Policy Number [id number] Subscriber's Name Savana Menendez Relationship Self / Same As Patient Group Number [id number] Group Name NA Advance Directives Directive Response Recorded Date/Time Advance Directives No 04/03/16 8:25pm Advance Directive on File No 01/10/19 12:20pm Directive to Physicians/Living Will No 04/03/16 5:08pm Health Care Proxy No 04/03/16 5:08pm Organ Donor No 04/03/16 5:08pm Medical Power of Rn Baby No 04/03/16 5:08pm Patient/Family Given Education Material R/T Y - 01/10/19...[place] 01/10/19 2:31pm Directives? Chief Complaint and Reason for Visit Chief Complaint Chest Pain Reason for Visit Post-operative pain Problems Medical Problem Onset Date Status Anemia Unknown Acute Chest pain Unknown Acute HTN (hypertension) Unknown Chronic Hematuria Unknown Acute History of renal cell cancer Unknown Chronic Hypoglycemia Unknown Acute Hyponatremia Unknown Leukocytosis Unknown Acute Perinephric hematoma Unknown Acute Post-operative pain Unknown Acute Postoperative urinary retention Unknown Acute [...] 6 (Tylenol *) 500 Hours Mg Tab (02-15-16-22) as needed for Pain Aspirin 81 Mg [...] ORAL Every 8 4 Days 16 (Ondansetron Hours(06-23- Tablet Odt 4 Mg) 4 Mg 24) as Tab needed for Nausea/Vomit ing Past Home Medications Medication Directions Ordered Status [...] Alcohol Use Y - ONCE IN A 04/06/2018 8:45pm Not Applicable Not Applicable WHILE Hx Physical Abuse No 01/10/2019 12:20pm Not Applicable Not Applicable Smoking Status Start Date Stop Date Former smoker Hospital Discharge Instructions No hospital discharge instruction information available. Plan of Care Discharge Date 01/10/19 4:06pm Instructions/Education Provided Pain Relief Preoperatively and Postoperatively Forms Provided Portal Welcome Letter Prescriptions See Medication Section Referrals HORTENSIA RENTERIA Address: [address] [place] [address] Additional Instructions/Education see cardio in 2-3d, return to ER if recurring pain Functional Status No functional status information available. Allergies, Adverse Reactions, Alerts Allergen Type Severity Reaction Status Last Updated No Known Allergies Allergy Unknown Active 02/14/14 Immunizations Immunization Event Date Type Not Given Dose Number Lot Number Escrow Closer Reason TDaP 04/06/18 Administered 1 [id number] SANOFI PS Vital Signs Acute Vital Signs Vital Response Date/Time Blood Pressure 163/73 mm Hg 01/10/2019 5:04pm Pulse Pulse Rate (adult) 75 beats per minute (60 - 100) 01/10/2019 5:04pm Respiratory Rate 13 breaths per minute (10 - 24) 01/10/2019 5:04pm Temperature Source Oral 01/10/2019 5:04pm Results Laboratory Results Test Name Result Units Flags Reference Collection Result Comments Date/Time Date/Time Urine Color LIGHT 12/11/2018 12/11/2018 YELLOW 3:53pm 4:14pm Urine Appearance CLEAR CLEAR 12/11/2018 12/11/2018 3:53pm 4:14pm Urine Glucose 4+ (1000 H NEGATIVE 12/11/2018 12/11/2018 mg/dL) 3:53pm 4:14pm Urine Bilirubin NEGATIVE NEGATIVE 12/11/2018 12/11/2018 3:53pm 4:14pm Urine Ketones NEGATIVE NEGATIVE 12/11/2018 12/11/2018 3:53pm 4:14pm Urine Specific 1.019 1.003-1.03 12/11/2018 12/11/2018 [place] 0 3:53pm 4:14pm Urine Blood 1+ H [...] Culture NO 12/11/2018 12/11/2018 Reflexed 3:53pm 4:14pm White Blood 4.0 K/ul 4.0-12.3 01/10/2019 01/10/2019 Count 12:32pm 12:50pm Red Blood Count 3.19 M/ul L 3.80-5.80 01/10/2019 01/10/2019 12:32pm 12:50pm Hemoglobin 8.8 g/dl L 11.67-17.2 01/10/2019 01/10/2019 2 12:32pm 12:50pm Hematocrit 28.5 % #L 35.0-51.0 01/10/2019 01/10/2019 12:32pm 12:50pm Mean Corpuscular 89.2 fl 78-96 01/10/2019 01/10/2019 Volume 12:32pm 12:50pm Mean Corpuscular 27.6 pg 26.8-33.4 01/10/2019 01/10/2019 Hemoglobin 12:32pm 12:50pm Mean Corpuscular 30.9 g/dl L 32.3-36.7 01/10/2019 01/10/2019 Hemoglobin 12:32pm 12:50pm Concent Red Cell 13.1 % 11.6-15.4 01/10/2019 01/10/2019 Distribution 12:32pm 12:50pm Width Platelet Count 242 K/ul 115-328 01/10/2019 01/10/2019 12:32pm 12:50pm Mean Platelet 6.9 fl L 8.4-11.8 01/10/2019 01/10/2019 Volume 12:32pm 12:50pm Neutrophils (%) 69.9 % 44.7-82.4 01/10/2019 01/10/2019 (Auto) 12:32pm 12:50pm Lymphocytes (%) 9.0 % L 10.0-50.0 01/10/2019 01/10/2019 (Auto) 12:32pm 12:50pm Monocytes (%) 16.9 % H 3.9-13.4 01/10/2019 01/10/2019 (Auto) 12:32pm 12:50pm Eosinophils (%) 2.9 % 0.0-6.43 01/10/2019 01/10/2019 (Auto) 12:32pm 12:50pm Basophils (%) 1.4 % H 0.0-0.72 01/10/2019 01/10/2019 (Auto) 12:32pm 12:50pm Prothrombin Time 10.6 SECONDS 10.3-12.3 01/10/2019 01/10/2019 12:32pm 12:55pm THERAPEUTIC LEVEL: 1.5 to 1.9 times normal range of PT Prothromb Time 0.96 01/10/2019 01/10/2019 International 12:32pm 12:55pm Recommended therapeutic range for patients receiving Ratio warfarin (coumadin) therapy: INR is 2.0 to 3.0 Recommended range for patients with mechanical prosthetic heart valves: INR is 2.5 to 3.5 Activated 27.8 SECONDS 22.5-37.0 01/10/2019 01/10/2019 Partial 12:32pm 12:55pm Thromboplast Time POC Capillary 77 mg/dL 70 - 110 01/10/2019 01/10/2019 Blood Glucose 3:28pm 3:29pm (Chem) Random Glucose 95 mg/dL 82-115 01/10/2019 01/10/2019 12:32pm 12:54pm Blood Urea 27 mg/dL H 8-23 01/10/2019 01/10/2019 Nitrogen 12:32pm 12:54pm Serum Osmolality 275 L 280-300 01/10/2019 01/10/2019 12:32pm 12:54pm Creatinine 2.0 mg/dL H 0.70-1.20 01/10/2019 01/10/2019 12:32pm 12:54pm Glomerular 33.60 L 01/10/2019 01/10/2019 GFR RESULTS ARE REPORTED IN mL/min/1.73m2. Filtration Rate 12:32pm 12:54pm Calc Normal GFR: >60mL/min Moderately decreased GFR: 30-59 mL/min Severely decreased GFR: 15-29 mL/min Kidney Failure (or Dialysis): <15 mL/min The calculated eGFR is not valid for patients younger than 18 years or older than 75 years. BUN/Creatinine 13.5 12-01/10/2019 01/10/2019 Ratio 12:32pm 12:54pm Sodium Level 135 mmol/L 135-145 01/10/2019 01/10/2019 12:32pm 12:54pm Potassium Level 5.0 mmol/L 3.5-5.2 01/10/2019 01/10/2019 12:32pm 12:54pm Chloride Level 99 mmol/L 98-108 01/10/2019 01/10/2019 12:32pm 12:54pm Carbon Dioxide 22 mmol/L 21-32 01/10/2019 01/10/2019 Level 12:32pm 12:54pm Anion Gap 19.0 mEq/L 12-20 01/10/2019 01/10/2019 12:32pm 12:54pm Calcium Level 8.7 mg/dL L 8.8-10.2 01/10/2019 01/10/2019 12:32pm 12:54pm Total Protein 7.9 g/dL 6.6-8.7 01/10/2019 01/10/2019 12:32pm 12:54pm Albumin 3.6 g/dL 3.5-5.2 01/10/2019 01/10/2019 12:32pm 12:54pm Globulin 4.3 gm/dL 01/10/2019 01/10/2019 12:32pm 12:54pm Albumin/Globulin 0.8 >1.0 01/10/2019 01/10/2019 Ratio 12:32pm 12:54pm Total Bilirubin 0.7 mg/dL 0.0-1.2 01/10/2019 01/10/2019 12:32pm 12:54pm Aspartate Amino 17 U/L 15-40 01/10/2019 01/10/2019 Transf 12:32pm 12:54pm (AST/SGOT) Alanine 12 U/L 0-41 01/10/2019 01/10/2019 Aminotransferase 12:32pm 12:54pm (ALT/SGPT) UT-Bqs-F-Type 4676 pg/mL H 0-125 01/10/2019 01/10/2019 Natriuretic 12:32pm 12:58pm Peptide Total Alkaline 268 U/L H 40-130 01/10/2019 01/10/2019 Phosphatase 12:32pm 12:54pm Creatine Kinase 72 U/L 20-200 01/10/2019 01/10/2019 12:32pm 12:54pm Troponin I < 0.30 ng/mL 0.0-0.5 01/10/2019 01/10/2019 Published clinical studies have shown elevations of cTnI in 12:32pm 12:58pm patients with myocardial injury, as seen in unstable angina pectoris, cardiac contusions, and heart transplants. Elevations have also been seen in patients with rhabdomyolysis and polymyositis. Elevated troponin levels point to myocardial injury, but are not necessarily indicative of an ischemic mechanism. The term IA should be used when there is evidence [...] clinical examination and other findings. Creatine Kinase 1.9 ng/ml 0.0-3.6 01/10/2019 01/10/2019 MB 12:32pm 12:58pm DIAGNOSTIC CITERIA: CKMB CKMB RELATIVE INDEX SUGGESTIVE OF NON-AMI < or=5 N/A JONES ZONE (INCONCLUSIVE) > 5 < or=4 SUGGESTIVE OF AMI >5 > 4 Pending Laboratory Results Test Name Collection Date/Time POC Capillary Blood Glucose (Chem) 01/10/2019 2:44pm Procedures Procedure Status Date Provider(s) EMERGENCY DEPT VISIT Completed 12/11/18 CT HEAD/BRAIN W/O DYE Completed 12/11/18 X-RAY EXAM CHEST 1 VIEW Completed 12/11/18 COMPLETE CBC W/AUTO DIFF WBC Completed 12/11/18 CREATINE MB FRACTION Completed 12/11/18 ASSAY OF CK (CPK) Completed 12/11/18 PROTHROMBIN TIME Completed 12/11/18 THROMBOPLASTIN TIME PARTIAL Completed 12/11/18 URINALYSIS AUTO W/SCOPE Completed 12/11/18 ROUTINE VENIPUNCTURE Completed 12/11/18 ASSAY OF TROPONIN QUANT Completed 12/11/18 COMPREHEN METABOLIC PANEL Completed 12/11/18 ELECTROCARDIOGRAM TRACING Completed 12/11/18 Computed tomography of head without Completed 12/11/18 ADEEL FAM MD contrast X-ray of chest, single view Completed 12/11/18 ADEEL FAM MD X-ray of chest, single view Completed 01/10/19 NEYMAR SCHOFIELD MD Encounters Encounter Location Arrival/Admit Date Discharge/Depart Date Attending Provider Registered [place] 01/10/19 12:19pm [facility] [place] 12/11/18 2:16pm 12/11/18 3:55pm [facility] Emergency Room [facility] Recent Diagnosis
--- OUTSIDE RECORDS SUMMARY | 2019-07-17 21:27 | XMS REPORT | Encounter Summary ---
:1950 Author Care Team Providers Name Role Phone Rigoberto Vann MD Primary Care Provider [phone] Reason for Visit Follow Up Visit Instructions 1. Closed trimalleolar fracture of left ankle Discussion Note: None recorded.Patient educational handouts: No information available. Plan of Care Reminders Provider Appointments None recorded. Lab None recorded. Referral None recorded. Procedures None recorded. Surgeries None recorded. Imaging [...] of Left Ankle Joesph Izaguirre MD: [address], [place] [address], Ph. [phone] 06/05/2019 Closed Trimalleolar Fracture of Left Ankle; Coronary Arteriosclerosis in [place] Artery; History of Coronary Artery Bypass Grafting; Essential Hypertension; Mixed Hyperlipidemia; Cerebrovascular Disease; Type 2 Diabetes Mellitus without Complication Rigoberto Vann MD: [address], [address], [place] [address], Ph. History of Present Illness Ankle Reported [...]
--- OUTSIDE RECORDS SUMMARY | 2019-07-17 21:28 | XMS REPORT | Summary of Care ---
:1950 Author Organization [facility] Address [address] [place] [id number] Care Team Providers Name Role Phone Faviola Ortiz Monica Primary Care Provider Reason for Referral Radiology Services (Routine) Status Reason Specialty Diagnoses / Referred By Referred To Procedures Contact Contact New Request Diagnostic Diagnoses Deformity of left ankle joint Panchbhavi, Radiology Procedures XR ANKLE 3+ VW BILATERAL MD Trae [address] [place] [address] Radiology Services (Routine) Status Reason Specialty Diagnoses / Referred By Referred To Procedures Contact Contact New Request Diagnostic Diagnoses Deformity of left ankle joint Panchbhavi, Radiology Procedures XR FOOT 3+ VW BILATERAL MD Trae [address] [place], [place] [id number] Reason for Visit Reason Comments New Patient left ankle pain (Routine) Status Reason Specialty Diagnoses / Referred By Referred To Procedures Contact Contact Pending Review ORT-ORTHOPAEDIC Diagnoses Broken ankle, left, closed, initial encounter LEFT BROKEN ANKLE06/09 @ 2:45 LVM to offer sooner appt/nrl Radha-Vl Ortho Panchbhavi, SURGERY / Procedures CONSULT/REFERRAL ORTHOPAEDIC SURGERY NEW VISIT (FIRST TIME) Faculty MD Trae Orthopedic [facility] [address] [place], [place] [address] [place] [address] Phone: [phone] Phone: Encounter Details Date Type Department Care Team Description 06/19/2019 Office Visit [facility] Orthopaedic Panchbhavi, Deformity of left ankle joint (Primary Dx); Surgery- Kress MD Trae Ankle dislocation, left, sequela; [place] [address] Chronic kidney disease, unspecified CKD stage; [address] [place], [place] Other specified diabetes mellitus with autonomic neuropathy, unspecified whether residential insulin use; 1.211 10415 Charcot ankle, left; [place], [place] [phone] Coronary artery disease without angina pectoris, unspecified vessel or lesion type, unspecified whether [place] or transplanted heart [phone] Allergies No Known Allergiesdocumented as of this encounter (statuses as of 06/20/2019) Medications Medication Sig Dispensed Refills Start Date [...] as of this encounter (statuses as of 06/20/2019) Active Problems Problem Noted Date Ankle dislocation, left, sequela 06/20/2019 Chronic kidney disease 06/20/2019 Diabetes mellitus with peripheral autonomic neuropathy 06/20/2019 Charcot ankle, left 06/20/2019 Coronary artery disease without angina pectoris 06/20/2019 Acute kidney failure with lesion of tubular necrosis 09/10/2016 Overview: CRISTIANE Due to ATN resolved documented as of this encounter (statuses as of 06/20/2019) Social History Tobacco Use Types Packs/Day Years [...] - documented in this encounter Progress Notes Trae Bonilla MD - 06/19/2019 11:30 AM CDTI have actively participated in clinical care and have examined and interviewed the patient on the date the resident entered the note which I am cosigning and I agree with his entire note. Gato Martinez - 06/19/2019 11:30 AM Loree Francois is a 68 year old male Patient lt. Post. splint was removed . Pt. tolerated splint removal well. Pt's foot was cleansed with alcohol and gauze. He was placed back into a post shaped splint. Ricky Thomas DO - 06/19/2019 11:30 AM CDT ORTHOPAEDIC CLINIC NOTE Patient: Sotero Francois Patient Age: [age] year old Gender: male SUBJECTIVE: CC: left ankle pain HISTORY OF PRESENT ILLNESS Sotero Francois is a 68 year old male who presents with a one month old fracture dislocation of theankle. Send from [facility] Lives in [address] [place] [address]. PAST HISTORIES PMH of diabetes and CAD with coronary intervention - significant multiple medical comorbidities No reported previous ankle procedures Family history [...] vocalizing demands Psychiatric: A&OX3; Appropriate affect Musculoskeletal: Severe Obvious deformity of the left ankle, threatening medial ankle soft tissues that are red, inflamed but not cellulitic Skin amenable to surgical intervention vascularly intact Loss of sensation distally bilateral Dry skin, but good hair growth on toes Some pain and discomfort on manipulation at ankle, impossible to reduce, ankle held in inversion IMAGING Xray imaging reviewed and supports the [...] month old fracture/dislocation of the left ankle ICD-10-CM ICD-9-CM 1. Deformity of left ankle joint M21.962 736.79 2. Ankle dislocation, left, sequela S93.05XS 905.6 3. Chronic kidney disease, unspecified CKD stage N18.9 585.9 4. Other specified diabetes mellitus with autonomic neuropathy, unspecified whether remote computer terminal operator insulin use E13.43 250.60 357.2 5. Charcot ankle, left M14.672 094.0 713.5 6. Coronary artery disease without angina pectoris, unspecified vessel or lesion type, unspecified whether [place] or transplanted heart I25.10 414.00 PLAN: We have discussed all the treatment options and have agreed upon: Staged procedure Stage I OR -External multiplanar external fixator for progressive lengthening of left ankle -Achilles tendon lengthen on the left Stage II - removal of external fixator Stage III -hindfoot arthrodesis A clear explanation was given to the patient regarding the condition present, and the available conservative and surgical options. It was emphasized that the risks and benefits of surgery include but are not limited to infection, wound healing problems, damage to adjacent structures such as nerves, blood vessels and tendons, remote computer terminal operator disability and pain, arthritis, hypersensitivity, deep vein [...] treatment, and services. -Splint to left ankle with ankle in inversion to relax soft tissues, patient and family aware of possible breakdown of the compromised skin. Spent a significant amount of time going over patient's symptoms, physical exam findings, imaging findings, and treatment plan.I discussed my findings and educated patient on the condition present. Allquestions were answered appropriately and to the patient's satisfaction. Ricky Kate DO Orthopaedics Department PGY-2 Pager: [phone] 06/19/2019 documented in this encounter Plan of Treatment Health Maintenance Due Date Last Done Comments HEPATITIS C (HCV) SCREEN 1950 HgA1C 1951 CREATININE (SERUM) 1962 EYE EXAM 1962 LDL-C 1962 URINE MICROALBUMIN 1962 FOOT EXAM 1970 DTaP,Tdap,and Td Vaccines (1 - Tdap) 1971 COLONOSCOPY 2002 Zoster Recombinant Vaccine (SHINGRIX) (1 of 2) 2002 LUNG CANCER SCREEN: Recommended for age 55-80 with 30 + 2007 pack year history Medicare Wellness Visit 2017 PNEUMOCOCCAL VACCINES 65+ [...] Deformity of left ankle joint - Primary Ankle dislocation, left, sequela Chronic kidney disease, unspecified CKD stage Other specified diabetes mellitus with autonomic neuropathy, unspecified whether remote computer terminal operator insulin use Charcot ankle, left Coronary artery disease without angina pectoris, unspecified vessel or lesion type, unspecified whether [place] or transplanted heart documented in this encounter Insurance Payer Benefit Plan / Subscriber ID Effective Phone Address Type Group Dates [employer] MEDICARE [id number] 2018-Prese Medicare Adv HEALTHCARE - COMPLETE nt O MANAGED MEDICARE [address] (Home) ALYSSA VALENZUELA [phone] [id number] (Work) documented as of this encounter
--- OUTSIDE RECORDS SUMMARY | 2019-07-17 21:28 | XMS REPORT | Summary of Care ---
:1950 Author Organization [facility] Address [address] [place] [address] Care Team Providers Name Role Phone Faviola Ortiz Monica Primary Care Provider Reason for Referral Radiology Services (Routine) Status Reason Specialty Diagnoses / Referred By Referred To Procedures Contact Contact New Request Diagnostic Diagnoses Deformity of left ankle joint Panchbhavi, Radiology Procedures XR ANKLE 3+ VW BILATERAL MD Trae [address] [place] [address] Radiology Services (Routine) Status Reason Specialty Diagnoses / Referred By Referred To Procedures Contact Contact New Request Diagnostic Diagnoses Deformity of left ankle joint Panchbhavi, Radiology Procedures XR FOOT 3+ VW BILATERAL MD Trae [address] [place] [address] Reason for Visit Reason Comments New Patient left ankle pain (Routine) Status Reason Specialty Diagnoses / Referred By Referred To Procedures Contact Contact New Request ORT-ORTHOPAEDIC Diagnoses Broken ankle, left, closed, initial encounter LEFT BROKEN ANKLE06/09 @ 2:45 LVM to offer sooner appt/nrl Radha-Vl Ortho Panchbhavi, SURGERY / Procedures CONSULT/REFERRAL ORTHOPAEDIC SURGERY NEW VISIT (FIRST TIME) Faculty MD Trae Orthopedic Surgery [address] [place] [id number] [place] [address] Phone: [phone] Phone: Encounter Details Date Type Department Care Team Description 06/19/2019 Office Visit [facility] Orthopaedic Panchbhavi, Deformity of left Surgery- Kaplan MD Trae ankle joint (Primary [place] [address]x) [address] [place], [place] 1.[address] [place], [place] [phone] Allergies No Known Allergiesdocumented as of [...] - documented in this encounter Progress Notes Gato Phan - 06/19/2019 11:30 AM ELSIEAmbrocio Francois is a 68 year old male [...] fracture dislocation of theankle. Send from [facility] Lives in [address] [place] [address]. PAST HISTORIES PMH of diabetes and CAD [...] such as nerves, blood vessels and tendons, oil heaterman disability and pain, arthritis, hypersensitivity, deep vein [...] Ricky Kate DO Orthopaedics Department PGY-2 Pager: [phone] 06/19/2019 documented in this encounter Plan of [...] talar process/lateral malleolus avulsions. Performing Organization Address [facility] [place] Phone Number PACS/VR/DOSE XR FOOT 3+ VW [...] talar process/lateral malleolus avulsions. Performing Organization Address [facility] Phone Number PACS/VR/DOSE documented in this encounter Visit Diagnoses Diagnosis Deformity of left ankle joint - Primary documented in this encounter Insurance Payer Benefit Plan / Subscriber ID Effective Phone Address Type Group Dates UNITED AARP MEDICARE [id number] 2018-Prese Medicare Adv HEALTHCARE - COMPLETE nt O MANAGED MEDICARE [facility] [address] (Home) ALYSSA VALENZUELA [phone] (Work) documented as of this encounter
--- OUTSIDE RECORDS SUMMARY | 2019-07-17 21:28 | XMS REPORT | Summary of Care ---
:1950 Author Organization [facility] - Health Address [address] [place] [address] Care Team Providers Name Role Phone Faviola Ortiz Monica Primary Care Provider Encounter Details Date Type Department Care Team Description 06/20/2019 Orders Only [facility] Doctor Unassigned, No 301 [facility] [place] [address] [address] [place] [address] Allergies No Known Allergiesdocumented as of this [...] of this encounter Last Filed Vital Signs Not on filedocumented in this encounter Plan of Treatment Health [...] VACCINE 07/09/2019 documented as of this encounter Procedures Procedure Name Priority Date/Time Associated Diagnosis Comments EXTERNAL PROVIDER Routine 06/20/2019 12:01 AM CDT RECORDS documented in this encounter Results Not on filedocumented in this encounter Insurance Payer Benefit Plan / Subscriber ID Effective Phone Address Type Group Dates [employer]ARP MEDICARE [id number] 2018-Prese Medicare Adv HEALTHCARE - COMPLETE nt O MANAGED MEDICARE documented as of this encounter
--- OUTSIDE RECORDS SUMMARY | 2019-07-17 21:28 | XMS REPORT | Summary of Care ---
:1950 Author Organization [facility] Address [address] [place] [address] Care Team Providers Name Role Phone Faviola Ortiz Monica Primary Care Provider Reason for Referral Radiology Services (Routine) Status Reason Specialty Diagnoses / Referred By Referred To Procedures Contact Contact New Request Diagnostic Diagnoses Deformity of left ankle joint Panchbhavi, Radiology Procedures XR ANKLE 3+ VW BILATERAL MD Trae [address] [place] [address] Radiology Services (Routine) Status Reason Specialty Diagnoses / Referred By Referred To Procedures Contact Contact New Request Diagnostic Diagnoses Deformity of left ankle joint Panchbhavi, Radiology Procedures XR FOOT 3+ VW BILATERAL MD Trae [address] [place] [address] Reason for Visit Reason Comments New Patient left ankle pain (Routine) Status Reason Specialty Diagnoses / Referred By Referred To Procedures Contact Contact New Request ORT-ORTHOPAEDIC Diagnoses Broken ankle, left, closed, initial encounter LEFT BROKEN ANKLE06/09 @ 2:45 LVM to offer sooner appt/nrl Radha-Vl Ortho Panchbhavi, SURGERY / Procedures CONSULT/REFERRAL ORTHOPAEDIC SURGERY NEW VISIT (FIRST TIME) Faculty MD [facility] Orthopedic Surgery [address] [place] [id number] [place] [address] Phone: [phone] Phone: Encounter Details Date Type Department Care Team Description 06/19/2019 Office Visit [facility] Orthopaedic Panchbhavi, Deformity of left Surgery- Malo MD Trae ankle joint (Primary [place] [address]) [address] [place], [place] 1.[address] [place], [place] [phone] Allergies No Known Allergiesdocumented as of [...] old fracture dislocation of theankle. Send from [facility] Lives in [address] [place] [address]. PAST HISTORIES PMH of diabetes and CAD [...] such as nerves, blood vessels and tendons, halfway disability and pain, arthritis, hypersensitivity, deep vein [...] Ricky Kate DO Orthopaedics Department PGY-2 Pager: [phone] 06/19/2019 documented in this encounter Plan of [...] Address Type Group Dates [employer]ARP MEDICARE [id number] 2018-Prese Medicare Adv HEALTHCARE - COMPLETE nt HMO MANAGED MEDICARE [address] (Home) ALYSSA VALENZUELA [phone] (Work) documented as of this encounter
--- OUTSIDE RECORDS SUMMARY | 2019-07-17 21:28 | XMS REPORT | Summary of Care ---
:1950 Author Organization [facility] Address [address] [place] [address] Care Team Providers Name Role Phone Faviola Ortiz Monica Primary Care Provider Reason for Referral Radiology Services (Routine) Status Reason Specialty Diagnoses / Referred By Referred To Procedures Contact Contact New Request Diagnostic Diagnoses Deformity of left ankle joint Panchbhavi, Radiology Procedures XR ANKLE 3+ VW ISIDRO Larkin MD [address] [place] [address] Radiology Services (Routine) Status Reason Specialty Diagnoses / Referred By Referred To Procedures Contact Contact New Request Diagnostic Diagnoses Deformity of left ankle joint Panchbhavi, Radiology Procedures XR ANKLE 3+ VW ISIDRO Larkin MD [address] [place] [address] Radiology Services (Routine) Status Reason Specialty Diagnoses / Referred By Referred To Procedures Contact Contact New Request Diagnostic Diagnoses Deformity of left ankle joint Panchbhavi, Radiology Procedures XR FOOT 3+ VW ISIDRO Larkin MD [address] [place] [address] Radiology Services (Routine) Status Reason Specialty Diagnoses / Referred By Referred To Procedures Contact Contact New Request Diagnostic Diagnoses Deformity of left ankle joint Panchbhavi, Radiology Procedures XR FOOT 3+ VW ISIDRO Larkin MD [address] [place] [address] Reason for Visit Radiology Services (Routine) Status Reason Specialty Diagnoses / Referred By Referred To Procedures Contact Contact New Request Diagnostic Diagnoses Deformity of left ankle joint Panchbhavi, Radiology Procedures XR FOOT 3+ VW BILATERAL MD Trae [address] [place] [address] Encounter Details Date Type Department Care Team Description 06/19/2019 Hospital Encounter [facility] Trae [place], Arrived [facility] [address] [id number] [phone] Allergies No Known Allergiesdocumented as of this [...] encounter (statuses as of 06/20/2019) Active Problems Not on filedocumented as of [...] Procedure Name Priority Date/Time Associated Diagnosis Comments XR FOOT 3+ VW Routine 06/19/2019 11:53 AM Deformity of left Results for this BILATERAL CDT ankle joint procedure are in the results section. XR ANKLE 3+ VW Routine 06/19/2019 11:53 AM Deformity of left Results for this BILATERAL CDT ankle joint procedure are in the results section. documented in this encounter Results XR ANKLE 3+ VW [...] Diagnoses Diagnosis Deformity of left ankle joint documented in this encounter Insurance Payer Benefit Plan / Subscriber ID Effective Phone Address Type Group Dates [employer] MEDICARE [id number] 2018-Prese Medicare Adv HEALTHCARE - COMPLETE nt O MANAGED MEDICARE [address] (Home) ALYSSA VALENZUELA [phone] (Work) documented as of this encounter
--- OUTSIDE RECORDS SUMMARY | 2019-07-17 21:28 | XMS REPORT | Summary of Care ---
:1950 Author Organization [facility] - Health Address [address] [place] [address] Care Team Providers Name Role Phone Faviola Ortiz Monica Primary Care Provider Encounter Details Date Type Department Care Team Description 06/08/2019 Orders Only [facility] Doctor Unassigned, No 301 [facility] [place] [address] [address] [place] [address] Allergies No Known Allergiesdocumented as of this encounter (statuses as of 06/20/2019) Medications No known medicationsdocumented as of this encounter (statuses as of [...] Tobacco Use Types Packs/Day Years Used Date Never Assessed Sex Assigned at Date Recorded Not on [...] Procedure Name Priority Date/Time Associated Diagnosis Comments REFERRAL- Routine 06/08/2019 12:01 AM CDT REQUEST/RESPONSE documented in this encounter Results Not on filedocumented in this encounter Insurance Payer Benefit Plan Subscriber ID Effective Phone Address Type / Group Dates MEDICARE MEDICARE xxxxxxxxxx 2012- [phone] Medicare PART A & B 2018 [id number] [place] [phone] [facility] [id number] 2018-Pres Medicare Adv HEALTHCARE - MEDICARE ent HMO MANAGED COMPLETE MEDICARE documented as of this encounter
--- OUTSIDE RECORDS SUMMARY | 2019-07-17 21:28 | XMS REPORT | Summary of Care ---
:1950 Author Organization [facility] - Health Address [address] [place] [address] Care Team Providers Name Role Phone Faviola Ortiz Monica Primary Care Provider Encounter Details Date Type Department Care Team Description 06/15/2019 Orders Only [facility] Doctor Unassigned, No 301 [facility] [place] [address] [address] [place] [address] Allergies No Known Allergiesdocumented as of this [...] Priority Date/Time Associated Diagnosis Comments REFERRAL- Routine 06/15/2019 12:01 AM CDT REQUEST/RESPONSE documented in this encounter Results Not on filedocumented in this encounter Insurance Payer Benefit Plan / Subscriber ID Effective Phone Address Type Group Dates [employer]ARP MEDICARE [id number] 2018-Prese Medicare Adv HEALTHCARE - COMPLETE nt HMO MANAGED MEDICARE documented as of this encounter
--- OUTSIDE RECORDS SUMMARY | 2019-07-17 21:28 | XMS REPORT | Summary of Care ---
:1950 Author Organization [facility] Address [address] [place] [address] Care Team Providers Name Role Phone Faviola Ortiz Monica Primary Care Provider Reason for Visit Reason Comments Appointment surgery Encounter Details Date Type Department Care Team Description 06/23/2019 Telephone [facility] Orthopaedic Panchbhavi, Appointment ( surgery ) Surgery- Ashvillesandi Larkin MD [facility] [address] [place] [address] [phone] [place] [address] Allergies No Known Allergiesdocumented as of this encounter (statuses as of 06/26/2019) Medications Medication Sig Dispensed Refills Start Date [...] as of this encounter (statuses as of 06/26/2019) Active Problems Problem Noted Date Ankle dislocation, left, sequela 06/20/2019 Chronic kidney disease 06/20/2019 Diabetes mellitus with peripheral autonomic neuropathy 06/20/2019 Charcot ankle, left 06/20/2019 Coronary artery disease without angina pectoris 06/20/2019 Acute kidney failure with lesion of tubular necrosis 09/10/2016 Overview: CRISTIANE Due to ATN resolved documented as of this encounter (statuses as of 06/26/2019) Social History Tobacco Use Types Packs/Day Years [...] of 2 - PCV13) 2017 INFLUENZA VACCINE (#1) 2019 documented as of this encounter Results Not on filedocumented in this encounter Insurance Payer Benefit Plan / Subscriber ID Effective Phone Address Type Group Dates [employer] AARP MEDICARE [id number] 2018-[facility] Medicare Adv HEALTHCARE - COMPLETE nt O MANAGED MEDICARE documented as of this encounter
--- OUTSIDE RECORDS SUMMARY | 2019-07-17 21:29 | XMS REPORT | Summary of Care ---
:1950 Author Organization [facility] Address [address] [place] [address] Care Team Providers Name Role Phone Faviola Ortiz A Primary Care Provider Reason for Referral Other (Routine) Status Reason Specialty Diagnoses / Referred By Referred To Procedures Contact Contact New Request Diagnoses Ankle dislocation, left, sequela Panchbjen, Trae, Panchbjen, Trae, Procedures Discharge Follow-up: Specialty Provider TRAE BONILLA; 1 Week MD BENITES [address] [place], [place] [id number] Phone: (Routine) Status Reason Specialty Diagnoses / Referred By Referred To Procedures Contact Contact New Request Diagnostic Diagnoses Ankle dislocation, left, sequela Panchbhavi, Radiology Procedures FL TIME OR (NON-REPORTABLE) MD Trae [address] [place] [address] (Routine) Status Reason Specialty Diagnoses / Referred By Referred To Procedures Contact Contact New Request Diagnostic Diagnoses Ankle dislocation, left, sequela Panchbhavi, Radiology Procedures FL TIME OR (NON-REPORTABLE) MD Trae [address] [place] [address] Reason for Visit Auth/Cert Status Reason Specialty Diagnoses / Procedures Referred By Contact Referred To Contact Surgery Diagnoses deformity of left ankle joint Vl Preop Procedures OK APPLY BONE MULTIPLAN,EXT FIX DEV OK LENGTH/SHORT LEG/ANKL TENDON,SINGLE EXTERNAL FIXATOR PLACEMENT FOR LOWER EXTREMITY TENDON LENGTHENING [address] [place] [address] Encounter Details Date Type Department Care Team Description 07/11/2019 Hospital Encounter [facility] Trae Bonilla, Post Anesthesia Care Unit [address] [facility] [address] [place] [address] [phone] Allergies No Known Allergiesdocumented as of this encounter (statuses as of 07/11/2019) Medications Medication Sig Dispensed Refills Start Date End Date Status LEVEMIR FLEXTOUCH U-100 INJECT 35 UNITS 0 06/09/2019 Active INSULN 100 unit/mL (3 TWICE DAILY mL) injection SUB-Q metFORMIN 500 mg tablet TAKE 1 TABLET [...] 1,000 mg by 0 Active tablet mouth. HYDROcodone-acetaminophe Take 1 tablet by 45 tablet 0 07/11/2019 Active n (NORCO) 10-325 mg mouth every 6 tabletIndications: Ankle (six) hours as dislocation, left, needed for Pain sequela (scale 7-10). gabapentin 600 mg Take 1 tablet by 60 tablet 0 07/11/2019 Active tabletIndications: Ankle mouth 3 (three) dislocation, left, times daily. sequela cyclobenzaprine 10 mg Take 1 tablet by 60 tablet 0 07/11/2019 Active tabletIndications: Ankle mouth 3 (three) dislocation, left, times daily. sequela documented as of this encounter (statuses as of 07/11/2019) Active Problems Problem Noted Date Ankle dislocation, left, sequela 06/20/2019 Chronic kidney disease 06/20/2019 Diabetes mellitus with peripheral autonomic neuropathy 06/20/2019 Charcot ankle, left 06/20/2019 Coronary artery disease without angina pectoris 06/20/2019 Acute kidney failure with lesion of tubular necrosis 09/10/2016 Overview: CRISTIANE Due to ATN resolved documented as of this encounter (statuses as of 07/11/2019) Social History Tobacco Use Types Packs/Day Years [...] Sign Reading Time Taken Comments Blood Pressure 178/87 07/11/2019 9:15 AM CDT Pulse 82 07/11/2019 9:15 AM CDT Temperature 36.3 C (97.3 F) 07/11/2019 6:05 AM CDT Respiratory Rate 10 07/11/2019 9:15 AM CDT Oxygen Saturation 100% 07/11/2019 9:15 AM CDT Inhaled Oxygen Concentration - - Weight 81.6 kg (180 lb) 07/11/2019 6:05 AM CDT Height 172.7 cm (5' 8") 07/11/2019 6:05 AM CDT Body Mass Index 27.37 07/11/2019 6:05 AM CDT documented in this encounter Discharge Summaries Ricky Kate, - 07/11/2019 8:41 AM CDT Orthopedic Surgery Discharge Summary Date of Service: 07/11/2019 ATTENDING SURGEON: Trae Bonilla MD PCP: Faviola Ortiz Admit Date: 07/11/2019 Discharge Date: 07/11/2019 PRIMARY DIAGNOSIS Fracture-Dislocation of the ankle on the left FINAL DIAGNOSIS: same SECONDARY DIAGNOSIS: (any diagnosis that, required clinical evaluation, therapeutic treatment, diagnostic procedures, or additional nursing care/ monitoring): There are no hospital problems to display for this patient. PRINCIPAL PROCEDURE: Procedure(s): OPEN REDUCTION PERCUTANEOUS PINNING TENDON LENGTHENING ADDITIONAL PROCEDURES: None SIGNIFICANT LAB/X-RAYS: None HOSPITAL COURSE: Sotero Francois is a 68 year old male with procedures as above. The patient tolerated the procedurewell and ambulated per instructions. The patient's pain was controlled and diet was tolerated. The pt was discharged in stable condition. CONDITION: Good DISCHARGE MEDICATIONS: Current Discharge Medication List START taking these medications Details cyclobenzaprine 10 mg tablet Take 1 tablet by mouth 3 (three) times daily. Qty: 60 tablet, Refills: 0 Associated Diagnoses: Ankle dislocation, left, sequela gabapentin 600 mg tablet Take 1 tablet by mouth 3 (three) times daily. Qty: 60 tablet, Refills: 0 Associated Diagnoses: Ankle dislocation, left, sequela HYDROcodone-acetaminophen (NORCO) 10-325 mg tablet Take 1 tablet by mouth every 6 (six) hours as needed for Pain (scale 7-10). Qty: 45 tablet, Refills: 0 Associated Diagnoses: Ankle dislocation, left, sequela CONTINUE these medications which have NOT CHANGED Details acetaminophen 500 mg tablet Take 1,000 mg [...] injection INJECT 35 UNITS TWICE DAILY SUB-Q Refills: 0 metFORMIN 500 mg tablet TAKE 1 TABLET BY MOUTH TWICE DAILY WITH MORNING AND EVENING MEALS Refills: 0 traMADol 50 mg tablet TAKE ONE TABLET BY MOUTH TWICE DAILY NEEDED FOR PAIN Refills: 0 DISCHARGE: Discharged: Home DC INSTRUCTIONS/FOLLOW UP Discharge Orders Discharge Follow-up: Specialty Provider TRAE BONILAL; 1 Week To Provider: TRAE BONILLA [[id number]] Patient's Preferred Location: [place] Discharge Disposition: HOME, (AHR) When (Patients with risk for unplanned readmission score over 16 or those noted as Hospital Dependent should follow up within 7 days with PCP or primary DX specialist): 1 Week Risk of Unplanned Readmission:( Score greater than 16 indicates high risk) 6 Regular Diet; Texture: Regular. Texture Regular. Diabetic: IDDM Discharge Condition - Discharge Condition: GOOD Discharge Activity Discharge Activity: No Weight Bearing Operated extremity VTE Propylaxis- Was ordered during hospitalization Discharge Instructions Order Comments: -Keep dressing clean, dry and intact -Splint/boot to be keep on until follow up -NWB to the operated extremity -If dressing/splint becomes wet please contact clinic Patient was given discharge instructions. Ricky MontgomeryLuisEddie, PGY-2 [phone] 07/11/2019 Associated attestation - Trae Bonilla MD - 07/11/2019 9:03 AM CDTPlease see my dictated H+P / pre op note and post op notes within the dictated ' operation note' document. I have actively participated in clinical care and have examined and interviewed the patient and supervised procedures on the date of service to the patient and I agree with the attached residentsentire note except above. documented in this encounter Discharge Instructions Jennifer Thomas RN - 07/11/2019General Discharge Instructions Procedure: Lower Extremity Procedures Dr. Trae Bonilla 1. You may resume a regular diet. 2. Keep your incision clean and dry. Leave the surgical dressing in place until you are seen in clinic by Dr. Bonilla. When showering, cover the splint/ surgical dressing with a plastic bag to prevent it from getting wet. 3. NON-Weight bearing as advised with the use of crutches or a walker. 4. Elevate the leg while sitting or lying down to provide comfort, support and decrease swelling. 5. Deep Vein Thrombosis Prophylaxis when resting/ sitting, flex and extend the non-surgical foot, and if allowed may flex/ extend the knee, 10 times every 30 minutes to prevent blood clots. 6. Take prescribed pain medications around the clock for the 1st 24 hours. If provided, take antibiotics as prescribed until completely finished. 7. No driving until you no longer require pain medications and have been cleared by your physician. 8. Call Dr. Yañez office or seek emergency help if you develop significant pain, excessive bleeding or signs of infection (fever, redness, warmth, swelling, chest pain, breathlessness, alteredblood sugar levels, sweating, altered consciousness, or pain). 9. Check circulation on the surgical extremity every 2 hours for the 1st 24 hours. Assess capillary refill by pressing the tip of the toenail to ensure proper blood flow. The tissue will turn a palecolor while you apply pressure but the toe should return to a normal pink color within 3 seconds of pressure withdrawal. Assess the color and temperature of the toes then compare these findings to theunaffected foot. Assess the ability to move the toes as well as any numbness or tingling. Changes or inconsistencies between extremities is a good indicator of reduced blood flow or nerve damage and should be reported to Dr. Yañez office immediately. Contact Information Trae Bonilla MD ~ Daytime: [phone] After Hours: [facility] Access Line [phone] and ask to speak to the Nurse On- Call TOBACCO AVOIDANCE Exposure to tobacco either from smoking or from second hand (environmental) smoke or smokeless tobacco (snuff) is damaging to your health. This information is to encourage everyone to avoid tobacco exposure. It is recommended that you: If you smoke or use smokeless tobacco, we encourage you to quit. If you have already quit smoking, continue your good work! If you do not smoke or use smokeless tobacco, do not start. Avoid secondhand smoke. Additional Resources: You may want to contact these organizations for further information on smoking and how to quit- [place] [employer] - http://www.lungusa.org/stop-smoking/ [place] [employer] - http://www.cancer.org/Healthy/StayAwayfromTobacco/ index [place] [employer] - http://www.heart.org/HEARTORG/GettingHealthy/ QuitSmoking/Quit-Smoking_[facility]_001085_SubHomePage.jsp documented in this encounter Plan of Treatment Date Type Specialty Care Team Description 07/20/2019 Office Visit Orthopedic Surgery Trae Bonilla MD [address] [place], [place] [id number] Name Type Priority Associated Diagnoses Order Schedule POCT Glucose LAB Routine ONCE for 1 Occurrences starting 07/11/2019 until 07/11/2019 GLYCOSYLATED HEMOGLOBIN LAB Routine ONCE for 1 Occurrences (A1C) starting 07/11/2019 until 07/11/2019 Health Maintenance Due Date Last Done Comments [...] (#1) 2019 documented as of this encounter Implants Implanted Type Area Accountant Property Device Shelf Model / Identifier Expiration Date Serial / Lot Pin, Oscar Sterile Steinmann 1/8in (3.2mm) 9in Style 5 #[id number] - Sna PIN Left: Foot Oscar 07/11/2029 [id number] / Implanted: Qty: 2 on 07/11/2019 by Trae Bonilla MD at [facility] NA / 3 27 19 5 JUN 26 documented as of this encounter Procedures Procedure Name Priority Date/Time Associated Diagnosis Comments POCT GLUCOSE Routine 07/11/2019 8:49 AM Results for this (AUTOMATED) CDT procedure are in the results section. FL TIME OR Routine 07/11/2019 8:20 AM Ankle dislocation, Results for this (NON-REPORTABLE) CDT left, sequela procedure are in the results section. POCT GLUCOSE Routine 07/11/2019 6:14 AM Results for this (AUTOMATED) CDT procedure are in the results section. documented in this encounter Results POCT GLUCOSE (AUTOMATED) (07/11/2019 8:49 AM CDT) POCT GLU 308 (H) 70 - 110 mg/dL Specimen Blood Performing Organization Address City/State/Zipcode Phone Number CLIA: [id number], [address] [place] [address] [facility] TIME OR (NON-REPORTABLE) (07/11/2019 8:20 AM CDT) Specimen Narrative Performed At These images do not require a Radiology diagnostic report. PACS Performing Organization Address City/State/Zipcode Phone Number PACS POCT GLUCOSE (AUTOMATED) (07/11/2019 6:14 AM CDT) POCT GLU 371 (H) 70 - 110 mg/dL [facility] Specimen Blood Performing Organization Address City/State/Zipcode Phone Number CLIA: [id number], [address] [place], [place] [phone] [facility] documented in this encounter Visit Diagnoses Diagnosis Ankle dislocation, left, sequela - Primary documented in this encounter Administered Medications Medication Order MAR Action Action Date Dose Rate Site HYDROcodone-acetaminophen (NORCO 5) 5-325 mg tablet 1 tablet 1 tablet, Oral, Q6HPRN, Starting Wed07/11/19 at 0844, Until Discontinued, Routine, Pain (scale 4-6), PACU hydrogen peroxide 3 % topical solution Given 07/11/2019 8:04 AM CDT 100 mL PRN, Starting Wed07/11/19 at 0804, Until Discontinued, Routine, Intra-op HYDROmorphone (DILAUDID) injection 0.2 mg Given 07/11/2019 9:16 AM CDT 0.2 mg 0.2 mg, Slow IV Push, Q5MIN PRN, 10 doses, Starting Wed07/11/19 at 0844, Until Discontinued, Routine, Pain (scale 7-10), PACU, Use approved by (Faculty): PACU USE -ANESTHESIA SERVICE-HYDROMORPHONE INJECTIONS Given 07/11/2019 9:10 AM CDT 0.2 mg Given 07/11/2019 9:05 AM CDT 0.2 mg lactated ringers IV infusion 1,000 mL at 100 mL/hr, 1,000 mL, IV Infusion, CONTINUOUS, Starting Wed07/11/19 at 0845, Until Discontinued, Routine, PACU ondansetron (ZOFRAN (PF)) injection 4 mg 4 mg, Slow IV Push, PRN, 1 dose, Starting e 07/11/19 at 0844, Until Discontinued, Routine, Nausea and Vomiting (N/V), PACU Medication Order MAR Action Action Date Dose Rate Site HYDROcodone-acetaminophen Given 07/11/2019 9:20 AM CDT 1 tablet (NORCO 5) 5-325 mg tablet 1 tablet 1 tablet, Oral, ONCE, 1 dose, 07/11/19 at 0845, Routine, PACU lactated ringers IV infusion New Bag 07/11/2019 6:12 AM CDT 1,000 mL 20 mL /hr 1,000 mL at 20 mL/hr, 1,000 mL, IV Infusion, ONCE, 1 dose, 07/11/19 at 0600, Routine, DSU Pre-op documented in this encounter Insurance Payer Benefit Plan / Subscriber ID Effective Phone Address Type Group Dates [employer] MEDICARE [id number] 2018-Prese Medicare Adv HEALTHCARE - COMPLETE nt [place] MANAGED MEDICARE [phone] (Work) documented as of this encounter
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
--- OUTSIDE RECORDS SUMMARY | 2019-07-17 21:29 | XMS REPORT | Summary of Care ---
:1950 Author Organization [facility] - Health Address [address] [place] [address] Care Team Providers Name Role Phone Faviola Ortiz Primary Care Provider Encounter Details Date Type Department Care Team Description 07/11/2019 Orders Only [facility] Doctor Unassigned, No [address] [facility] [place] [address] [address] [place] [address] Allergies No Known Allergiesdocumented as of this encounter (statuses as of 07/11/2019) Medications Medication Sig Dispensed Refills Start Date End Date Status LEVEMIR FLEXTOUCH INJECT 35 UNITS 0 06/09/2019 Suspended U-100 INSULN 100 TWICE DAILY unit/mL (3 mL) SUB-Q injection metFORMIN 500 mg TAKE 1 TABLET 0 06/16/2019 Suspended tablet BY MOUTH TWICE DAILY WITH MORNING AND EVENING MEALS traMADol 50 mg tablet TAKE ONE TABLET 0 05/23/2019 Suspended BY MOUTH TWICE DAILY NEEDED FOR PAIN insulin detemir U-100 inject 30 Units 0 Suspended 100 unit/mL injection under the skin. glyBURIDE-metformin Take 1 tablet 0 Suspended 5-500 mg tablet by mouth. enalapril 5 mg tablet Take 5 mg by 0 Suspended mouth. atorvastatin 40 mg Take 40 mg by 0 Suspended tablet mouth. acetaminophen-codeine Take 1 tablet 0 Suspended 300-30 mg tablet by mouth. acetaminophen 500 mg Take 1,000 mg 0 Suspended tablet by mouth. documented as of this encounter (statuses [...] filedocumented in this encounter Plan of Treatment Date Type Specialty Care Team Description 07/24/2019 Office Visit Orthopedic Surgery Trae Bonilla MD [address] [place], [place] [address] Health Maintenance Due Date Last Done Comments [...] (#1) 2019 documented as of this encounter Procedures Procedure Name Priority Date/Time Associated Diagnosis Comments ASSIGNMENT OF BENEFITS Routine 07/11/2019 5:19 AM CDT documented in this encounter Results Not on filedocumented in this encounter Insurance Payer Benefit Plan / Subscriber ID Effective Phone Address Type Group Dates [facility] MEDICARE [id number] 2018-Prese Medicare Adv HEALTHCARE - COMPLETE nt [facility] MANAGED MEDICARE documented as of this encounter
--- OUTSIDE RECORDS SUMMARY | 2019-07-17 21:29 | XMS REPORT | Summary of Care ---
:1950 Author Organization [facility] Address [address] [place] [address] Care Team Providers Name Role Phone Faviola Ortiz Primary Care Provider Reason for Visit Reason Comments Hallucinations Encounter Details Date Type Department Care Team Description 07/17/2019 Nurse Triage [facility] Julius Blanchard RN Hallucinations [address] [place] [phone] Allergies No Known Allergiesdocumented as of this encounter (statuses as of 07/17/2019) Medications Medication Sig Dispensed Refills Start Date [...] as of this encounter (statuses as of 07/17/2019) Active Problems Problem Noted Date Ankle dislocation, left, sequela 06/20/2019 Chronic kidney disease 06/20/2019 Diabetes mellitus with peripheral autonomic neuropathy 06/20/2019 Charcot ankle, left 06/20/2019 Coronary artery disease without angina pectoris 06/20/2019 Acute kidney failure with lesion of tubular necrosis 09/10/2016 Overview: CRISTIANE Due to ATN resolved documented as of this encounter (statuses as of 07/17/2019) Social History Tobacco Use Types Packs/Day Years [...] Office Visit Orthopedic Surgery Trae Bonilla MD [address] [place] [address] [phone] Health Maintenance Due Date Last Done Comments [...] of this encounter Implants Implanted Type Area [employer]ire Cord Weaver Device Shelf Model / Identifier Expiration Date Serial / Lot Pin, Oscar Sterile Steinmann 1/8in (3.2mm) 9in Style 5 #[id number] - Sna PIN Left: Foot Oscar 07/11/2029 [id number] / Implanted: Qty: 2 on 07/11/2019 by Trae Bonilla MD at [facility] NA / 3 27 19 5 JUN 26 documented as of this encounter Results Not on filedocumented in this encounter Insurance Payer Benefit Plan / Subscriber ID Effective Phone Address Type Group Dates [employer] MEDICARE [id number] 2018-Prese Medicare Adv HEALTHCARE - COMPLETE nt HMO MANAGED MEDICARE documented as of this encounter
--- OUTSIDE RECORDS SUMMARY | 2019-07-17 21:29 | XMS REPORT | Summary of Care ---
:1950 Author Organization [facility] - Health Address [address] [place] [id number] Care Team Providers Name Role Phone Faviola Ortiz Primary Care Provider Encounter Details Date Type Department Care Team Description 01/10/2019 Orders Only [facility] Doctor Unassigned, No [address] [facility] [place] [address] [address] [place] [address] Allergies No Known Allergiesdocumented as of this encounter (statuses as of 07/13/2019) Medications No known medicationsdocumented as of this encounter (statuses as of 07/13/2019) Active Problems Problem Noted Date Ankle dislocation, left, sequela 06/20/2019 Chronic kidney disease 06/20/2019 Diabetes mellitus with peripheral autonomic neuropathy 06/20/2019 Charcot ankle, left 06/20/2019 Coronary artery disease without angina pectoris 06/20/2019 Acute kidney failure with lesion of tubular necrosis 09/10/2016 Overview: CRISTIANE Due to ATN resolved documented as of this encounter (statuses as of 07/13/2019) Social History Tobacco Use Types Packs/Day Years [...] Visit Orthopedic Surgery Trae Bonilla MD [address] [place], [place] [id number] Health Maintenance Due Date Last Done Comments [...] of this encounter Implants Implanted Type Area Ceramics Engineer Device Shelf Model / Identifier Expiration Date Serial / Lot Pin, Oscar Sterile Steinmann 1/8in (3.2mm) 9in Style 5 #[id number] - Sna PIN Left: Foot Oscar 07/11/2029 [id number] / Implanted: Qty: 2 on 07/11/2019 by Trae Bonilla MD at [facility] NA / 3 27 19 5 JUN 26 documented as of this encounter Procedures Procedure Name Priority Date/Time Associated Diagnosis Comments EXTERNAL PROVIDER Routine 01/10/2019 12:01 AM [facility] RECORDS documented in this encounter Results Not on filedocumented in this encounter Insurance Payer Benefit Plan Subscriber ID Effective Phone Address Type / Group Dates MEDICARE MEDICARE xxxxxxxxxx 2012- [phone] Medicare PART A & B 2018 [id number] [place] [phone] [facility] [id number] 2018-Pres Medicare Adv HEALTHCARE - MEDICARE ent HMO MANAGED COMPLETE MEDICARE documented as of this encounter
[2019-07-17] MEDS ORDERED: NA CHLORIDE 0.9% 3,000 ML ONE (21:36)
[2019-07-17] MEDS ORDERED: ACETAMINOPHEN 650MG/RECT SUPP PR ONE (21:36)
[2019-07-17] MEDS ORDERED: NA CHLORIDE 0.9% 250 ML ONE (21:36)
[2019-07-17] MEDS ORDERED: ACETAMINOPHEN 500 MG TAB ONE (21:36)
[2019-07-17] MEDS ORDERED: PIPER/TAZO/NS 3.375gm 3.375 GM/100 ML BAG ONE (22:09)
[2019-07-17] MEDS ORDERED: D50W 25 GM/50 ML SYRINGE IV ONE ×2 (22:09→23:59)
[2019-07-17 22:24] LABS: Absolute Lymphocytes (CBC) 0.4 K/uL (0.7-4.9); Basophils % 0.8 % (0-1.3); Hematocrit 31.1 % (39.6-49.0); Lymphocytes % 7.9 % (15.3-44.8); MPV 8.6 fL (7.6-11.3); RBC Red Blood Cell Count 3.62 M/uL (4.33-5.43)
[2019-07-17 22:27] LABS: Protime INR 0.87
[2019-07-17 23:13] LABS: Albumin 2.9 g/dL (3.4-5.0); Bilirubin Direct 0.4 mg/dL (0-0.2); Bilirubin Total 0.7 mg/dL (0.2-1.0); CKMB Creatine Kinase MB 6.8 ng/mL (0.3-3.6); Potassium 5.4 mmol/L (3.5-5.1); Protein, Total 8.2 g/dL (6.4-8.2); Troponin (Emerg Dept Use Only) 0.05 ng/mL (0.0-0.045)
[2019-07-18] MEDS ORDERED: D5 0.45 NS 1,000 ML IV ONE (00:56)
--- NOTE | 2019-07-18 01:00 | ER ---
Nurse's Notes [facility] Name: Sotero Francois Age: 68 yrs Sex: Male : 1950 Arrival Date: 07/17/2019 Time: 21:26 Bed 7 Private MD: Diagnosis: Hypoglycemia, unspecified;Cellulitis of left lower limb;Cerebral infarction;Acute kidney failure, unspecified Presentation: 07/17 21:27 Presenting complaint: EMS states: they were toned out for report of pt with AMS bb symptoms may have started Wednesday pt has broken leg which needs surgery. Transition of care: patient was not received from another setting of care. Onset of symptoms was July 14, 2019. Risk Assessment: Do you want to hurt yourself or someone else? Patient reports no desire to harm self or others. Initial Sepsis Screen: Does the patient meet any 2 criteria? Temp <36.0*C (96.8*F)) or > 38.3*C (100.9*F). Altered Mental Status. HR > 90 bpm. Yes Does the patient have a suspected source of infection? Yes: Bone or joint infection If YES to both, name of provider notified: Delvin Armijo MD. Care prior to arrival: None. 21:27 Method Of Arrival: EMS: [facility] bb :27 Acuity: RADHIKA 2 bb Historical: - Allergies: 21:31 No Known Allergies; bb - Home Meds: 21:31 atorvastatin oral oral [Active]; Cyclobenzaprine Oral [Active]; Metformin Oral bb [Active]; gabapentin oral oral [Active]; Enalapril Oral [Active]; - PMHx: 21:31 Diabetes - NIDDM; Hypertension; CAD; bb - PSHx: 21:31 CABG; Hernia repair; bb - Immunization history:: Adult Immunizations unknown. - Social history:: Smoking status: Patient/guardian denies using tobacco. - Ebola Screening: : No symptoms or risks identified at this time. Screenin:36 Abuse screen: Denies threats or abuse. Denies injuries from another. Nutritional rr5 screening: No deficits noted. Tuberculosis screening: No symptoms or risk factors identified. Fall Risk Fall in past 12 months (25 points). Secondary diagnosis (15 points) impaired mobility, IV access (20 points). Ambulatory Aid- None/Bed Rest/Nurse Assist (0 pts). Gait- Impaired (20 pts.). Mental Status- Overestimates/Forgets Limitations (15 pts.). Total Massey Fall Scale indicates High Risk Score (45 or more points). Fall prevention measures have been instituted. Side Rails Up X 2 Placed Close to Nursing Station Frequent Obs/Assessments Occuring Family Present and informed to notify staff if the need to leave the bedside As available patient and family educated on Fall Prevention Program and Strategies. 07/18 01:30 VAN Screening: Arm Drift: Patient shows no arm weakness. Patient is VAN negative. rr5 01:30 Patient has been NPO before screening. The patient is alert, able to follow commands. rr5 The patient exhibits slurred or garbled speech. Provider notified of indication for Speech Therapy consult. The patient is not exhibiting difficulty speaking. The patient does not exhibit difficulty understanding words. The patient is able to swallow own secretions with no drooling or need for suction. Patient tolerated one teaspoon of water. No drooling, immediate coughing, gurgling, or clearing of the throat was noted. The patient tolerated 90mL of water. No drooling, immediate coughing, gurgling, or clearing of the throat was noted. The patient failed the bedside swallow screening. The patient will be kept NPO until cleared by Speech Therapy or Physician. Provider notified of bedside swallow screening results: Delvin Armijo MD. Assessment: 07/17 21:40 General: Appears in no apparent distress. uncomfortable, ill, slender, Behavior is rr5 drowsy, fussy. 21:40 Pain: Unable to use pain scale. Patient is disoriented. Neuro: Level of Consciousness rr5 is awake, confused, Oriented to none Employee Representative are weak bilaterally Speech delayed response. Pupils are sluggish. Cardiovascular: Capillary refill < 3 seconds Patient's skin is warm and dry. Rhythm is sinus tachycardia. Respiratory: Airway is patent Respiratory effort is even, unlabored, Respiratory pattern is regular, symmetrical. GI: Abdomen is post op marking at abdomen and prominent lumps noted. : No signs and/or symptoms were reported regarding the genitourinary system. EENT: No signs and/or symptoms were reported regarding the EENT system. Derm: Skin is fragile, is thin, Skin temperature is warm. Musculoskeletal: Capillary refill < 3 seconds. 21:40 General: patient observed cannot stay still. having some twitching. able to respond rr5 when in voice command.. Musculoskeletal: posterior splint at left foot noted. 22:50 Reassessment: ED provider opened the left foot splint redness and swelling metal wire rr5 visible at left foot. (post operation of left ankle) posterior splint left foot reapplied. 23:45 Reassessment: Patient appears in no apparent distress at this time. patient able to rr5 recognized her airport operations specialist and where is he right now. more awake noted. 07/18 00:00 Reassessment: CBG rechecked 64 mg/dl, expiratory wheezing sound noted. ED provider rr5 aware with order made and carried out. 00:22 Reassessment: ED provider coordinating to [facility] for the transfer. awaiting for rr5 the facility acceptance. 00:55 Reassessment: Patient appears in no apparent distress at this time. ED provider aware rr5 for the CBG 80 mg/DL with order made and carried out. 01:41 Reassessment: according to airport operations specialist she noticed patient started to became disoriented rr5 last July. 01:45 Reassessment: call made to [facility] for transfer. facility accepted the case. rr5 01:50 Reassessment: ED provider informed for the CBG of 70 mg/dl, with order made and carried rr5 out. 02:53 Reassessment: Patient appears in no apparent distress at this time. endorsed to [facility] rr5 vitally stable, GCS 13/15 . breathing spontaneously at room air. denies any pain. with IV cannula intact. Vital Signs: 07/17 21:31 BP 152 / 125; Pulse 120; Resp 22 S; Temp 103.1(O); Pulse Ox 98% on R/A; Weight 104.33 bb kg (R); Height 5 ft. 5 in. (165.10 cm) (R); 22:37 BP 124 / 80; Pulse 119; Resp 24; Pulse Ox 94% ; rr5 22:40 BP 124 / 80; Pulse 114; Resp 22; Pulse Ox 96% on R/A; mt 22:41 Temp 101.4(O); mt 23:50 BP 109 / 75; Pulse 116; Resp 23; Temp 99.5; Pulse Ox 98% ; rr5 07/18 00:54 BP 139 / 79; Pulse 111; Resp 24; Pulse Ox 100% on R/A; mt 00:58 BP 139 / 79; Pulse 113; Resp 19; Temp 98.5; Pulse Ox 99% ; rr5 01:55 BP 132 / 80; Pulse 113; Resp 18; Temp 98.5; Pulse Ox 97% ; rr5 02:43 BP 134 / 57; Pulse 110; Resp 17; Temp 98.4; Pulse Ox 100% ; rr5 07/17 21:31 Body Mass Index 38.27 (104.33 kg, 165.10 cm) bb Angelita Coma Score: 07/17 21:40 Eye Response: to voice(3). Verbal Response: confused(4). Motor Response: obeys rr5 commands(6). Total: 13. 22:40 Eye Response: to voice(3). Verbal Response: confused(4). Motor Response: obeys rr5 commands(6). Total: 13. 23:40 Eye Response: to voice(3). Verbal Response: oriented(5). Motor Response: obeys rr5 commands(6). Total: 14. 07/18 00:58 Eye Response: to voice(3). Verbal Response: confused(4). Motor Response: obeys rr5 commands(6). Total: 13. NIH Stroke Scale Scores: 00:27 NIHSS Score: 2 tw4 01:30 NIHSS Score: 7 rr5 ED Course: 07/17 21:26 Patient arrived in ED. tw4 21:26 Delvin Armijo MD is Attending Physician. tw4 21:29 Triage completed. bb 21:31 Arm band placed on Patient placed in an exam room, on a stretcher, on monitor and storage bin tender, bb on pulse oximetry. 21:32 Valentin Booth RN is Primary Nurse. rr5 21:32 EKG done, by ED staff, reviewed by Delvin Armijo MD. mt 21:35 Patient has correct armband on for positive identification. Placed in gown. Bed in low rr5 position. Call light in reach. Side rails up X2. Adult w/ patient. color television console monitor on. Pulse ox on. NIBP on. 21:35 Head of bed elevated. rr5 21:43 CT Head Brain wo Cont In Process Unspecified. EDMS 21:46 Chest Single View XRAY In Process Unspecified. EDMS 22:00 Inserted saline lock: 20 gauge in right forearm, using aseptic technique. Blood rr5 collected. 22:00 First set of blood cultures drawn by me. rr5 22:25 Second set of blood cultures drawn. Inserted saline lock: 20 gauge in left hand, using rr5 aseptic technique. Blood collected. 23:09 Orthoglass splint: Posterior short lleg splint applied on left leg. Wound care: to [place] Surgical Site located on left leg was cleaned with soap and water, dressed with 4X4s, Kerlix, xeroform. 07/18 02:55 No provider procedures requiring assistance completed. Patient transferred, IV remains rr5 in place. intact, No redness/swelling at site. Administered Medications: 07/17 21:55 Drug: Acetaminophen Suppository 650 mg Route: OR; rr5 23:00 Follow up: Response: Temperature is decreased rr5 21:55 CANCELLED (Physician Discretion): Acetaminophen 1000 mg PO once tw4 22:00 Drug: NS 0.9% (30 ml/kg) 30 ml/kg Route: IV; Rate: bolus; Site: right forearm; rr5 07/18 02:56 Follow up: Response: No adverse reaction; IV Status: Completed infusion; IV Intake: rr5 3150ml 07/17 22:15 Drug: D50W 50 ml Route: IVP; Site: right forearm; rr5 23:07 Follow up: Response: No adverse reaction rr5 22:30 Drug: Zosyn 3.375 grams Route: IVPB; Infused Over: 60 mins; Site: right forearm; rr5 23:30 Follow up: Response: No adverse reaction; IV Status: Completed infusion; IV Intake: rr5 100ml 07/18 00:03 Drug: D50W 50 ml {Note: CBG 64mg/dl.} Route: IVP; Site: right forearm; rr5 01:00 Follow up: Response: Blood sugar is elevated rr5 00:58 Drug: D5-1/2 NS 1000 ml Route: IV; Rate: 100 ml/hr; Site: right forearm; rr5 02:55 Follow up: Response: No adverse reaction; IV Status: Infusion continued upon transfer; rr5 IV Intake: 200ml 02:00 Drug: D50W 50 ml Route: IVP; Site: right forearm; rr5 02:55 Follow up: Response: No adverse reaction rr5 Point of Care Testing: Blood Glucose: 07/17 21:33 Blood Glucose: 70 mg/dL; mt 22:49 Blood Glucose: 109 mg/dL; rr5 23:50 Blood Glucose: 64 mg/dL; rr5 07/18 00:58 Blood Glucose: 80 mg/dL; rr5 01:55 Blood Glucose: 70 mg/dL; rr5 02:43 Blood Glucose: 101 mg/dL; rr5 Ranges: Intake: 07/17 23:30 IV: 100ml; Total: 100ml. rr5 07/18 02:55 IV: 200ml; Total: 300ml. rr5 02:56 IV: 3150ml; Total: 3450ml. rr5 Outcome: 00:58 ER care complete, transfer ordered by . tw4 02:55 Transferred by ground EMS to [facility], Transfer form rr5 completed. 02:55 Condition: stable 02:55 Instructed on the need for transfer. 02:56 Patient left the ED. rr5 NIH Stroke Scale - NIH Stroke Score Date: 07/18/2019 Time: 00:27 Total Score = 2 1a. Level of Consciousness (LOC) - 1(Not Alert) 1b. Level of Consciousness (LOC) (Year \T\ Age) - 0(Both) 1c. LOC Commands (Open \T\ Closes Eyes/Meter Record Clerk) - 0(Both) 2. Best Gaze (Lateral Gaze Paresis) - 0(Normal) 3. Visual Field Loss - 0(No visual loss) 4. Facial Palsy - 0(Normal) 5a. Left Arm: Motor (10-second hold) - 0(No drift) 5b. Right Arm: Motor (10-second hold) - 0(No drift) 6a. Left Leg: Motor (5-second hold - always test supine) - 1(Drift) 6b. Right Leg: Motor (5-second hold - always test supine) - 0(No drift) 7. Limb Ataxia (finger/nose \T\ heel/clark - test with eyes open) - 0(Absent) 8. Sensory Loss (pinprick arms/legs/face) - 0(Normal) 9. Best Language: Aphasia (description/naming/reading) - 0(No aphasia) 10. Dysarthria (speech clarity - read or repeat words) - 0(Normal) 11. Extinction and Inattention (visual/tactile/auditory/spatial/personal) - 0(No abnormality) Initials: tw4 NIH Stroke Scale - NIH Stroke Score Date: 07/18/2019 Time: 01:30 Total Score = 7 1a. Level of Consciousness (LOC) - 1(Not Alert) 1b. Level of Consciousness (LOC) (Year \T\ Age) - 1(One) 1c. LOC Commands (Open \T\ Closes Eyes/Meter Record Clerk) - 0(Both) 2. Best Gaze (Lateral Gaze Paresis) - 1(Partial gaze palsy) 3. Visual Field Loss - 0(No visual loss) 4. Facial Palsy - 0(Normal) 5a. Left Arm: Motor (10-second hold) - 0(No drift) 5b. Right Arm: Motor (10-second hold) - 0(No drift) 6a. Left Leg: Motor (5-second hold - always test supine) - 1(Drift) 6b. Right Leg: Motor (5-second hold - always test supine) - 0(No drift) 7. Limb Ataxia (finger/nose \T\ heel/clark - test with eyes open) - 0(Absent) 8. Sensory Loss (pinprick arms/legs/face) - 0(Normal) 9. Best Language: Aphasia (description/naming/reading) - 1(Mild to moderate aphasia) 10. Dysarthria (speech clarity - read or repeat words) - 1(Mild to Moderate) 11. Extinction and Inattention (visual/tactile/auditory/spatial/personal) - 1(Present) Initials: rr5 Signatures: Dispatcher [employer] Greer Merino, Griselda Mccrary RN, mt, Terrence, MD MD tw4 Valentin Booth RN RN rr5
--- NOTE | 2019-07-18 01:01 | EDPHYS ---
Physician Documentation [facility] Name: Sotero Francois Age: 68 yrs Sex: Male : 1950 Arrival Date: 07/17/2019 Time: 21:26 Bed 7 Private MD: ED Physician Delvin Armijo HPI: 07/18 00:27 This 68 yrs old Male presents to ER via EMS with complaints of confusion. tw4 00:27 The patient presents with decreased mental status, decreased responsiveness. Onset: The tw4 symptoms/episode began/occurred today. Possible causes: CVA or TIA, low blood sugar, the patient takes and oral hypoglycemic. Associated signs and symptoms: The patient has no apparent associated signs or symptoms. Current symptoms: In the emergency department the patient's symptoms are unchanged from the initial presentation, despite home interventions. Patient's baseline: Neuro: alert and fully oriented, Motor: no deficits, Ambulation: walks without assistance. The patient has not experienced similar symptoms in the past. Historical: - Allergies: 07/17 21:31 No Known Allergies; bb - Home Meds: 21:31 atorvastatin oral oral [Active]; Cyclobenzaprine Oral [Active]; Metformin Oral bb [Active]; gabapentin oral oral [Active]; Enalapril Oral [Active]; - PMHx: 21:31 Diabetes - NIDDM; Hypertension; CAD; bb - PSHx: 21:31 CABG; Hernia repair; bb - Immunization history:: Adult Immunizations unknown. - Social history:: Smoking status: Patient/guardian denies using tobacco. - Ebola Screening: : No symptoms or risks identified at this time. ROS: 07/18 00:27 Constitutional: Negative for fever, chills, and weight loss, Eyes: Negative for injury, tw4 pain, redness, and discharge, Cardiovascular: Negative for chest pain, palpitations, and edema, Respiratory: Negative for shortness of breath, cough, wheezing, and pleuritic chest pain, Abdomen/GI: Negative for abdominal pain, nausea, vomiting, diarrhea, and constipation, Back: Negative for injury and pain, MS/Extremity: Negative for injury and deformity, Skin: Negative for injury, rash, and discoloration. Neuro: Positive for altered mental status. Exam: 00:27 Constitutional: This is a well developed, well nourished patient who is awake, alert, tw4 and in no acute distress. Head/Face: Normocephalic, atraumatic. Chest/axilla: Normal chest wall appearance and motion. Nontender with no deformity. No lesions are appreciated. 00:27 Cardiovascular: Rate: tachycardic, Rhythm: regular, Pulses: no pulse deficits are appreciated. 00:27 Respiratory: Lungs have equal breath sounds bilaterally, clear to auscultation and tw4 percussion. No rales, rhonchi or wheezes noted. No increased work of breathing, no retractions or nasal flaring. Abdomen/GI: Soft, non-tender, with normal bowel sounds. No distension or tympany. No guarding or rebound. No evidence of tenderness throughout. 00:27 Musculoskeletal/extremity: Extremities: noted in the lateral aspect of left calf and left lateral ankle: erythema, swelling, tenderness. Vital Signs: 07/17 21:31 BP 152 / 125; Pulse 120; Resp 22 S; Temp 103.1(O); Pulse Ox 98% on R/A; Weight 104.33 bb kg (R); Height 5 ft. 5 in. (165.10 cm) (R); 22:37 BP 124 / 80; Pulse 119; Resp 24; Pulse Ox 94% ; rr5 22:40 BP 124 / 80; Pulse 114; Resp 22; Pulse Ox 96% on R/A; mt 22:41 Temp 101.4(O); mt 23:50 BP 109 / 75; Pulse 116; Resp 23; Temp 99.5; Pulse Ox 98% ; rr5 07/18 00:54 BP 139 / 79; Pulse 111; Resp 24; Pulse Ox 100% on R/A; mt 00:58 BP 139 / 79; Pulse 113; Resp 19; Temp 98.5; Pulse Ox 99% ; rr5 01:55 BP 132 / 80; Pulse 113; Resp 18; Temp 98.5; Pulse Ox 97% ; rr5 02:43 BP 134 / 57; Pulse 110; Resp 17; Temp 98.4; Pulse Ox 100% ; rr5 07/17 21:31 Body Mass Index 38.27 (104.33 kg, 165.10 cm) NIH Stroke Scale Scores: 00:27 NIHSS Score: 2 tw4 01:30 NIHSS Score: 7 rr5 Angelita Coma Score: 07/17 21:40 Eye Response: to voice(3). Verbal Response: confused(4). Motor Response: obeys rr5 commands(6). Total: 13. 22:40 Eye Response: to voice(3). Verbal Response: confused(4). Motor Response: obeys rr5 commands(6). Total: 13. 23:40 Eye Response: to voice(3). Verbal Response: oriented(5). Motor Response: obeys rr5 commands(6). Total: 14. 07/18 00:58 Eye Response: to voice(3). Verbal Response: confused(4). Motor Response: obeys rr5 commands(6). Total: 13. MDM: 07/17 21:26 Patient medically screened. tw07/18 00:27 Differential Diagnosis: CVA, electrolyte abnormality, hypoglycemia, meningitis, volume tw4 depletion. Data reviewed: vital signs, nurses notes. Data interpreted: financial solutions advisor:. Test interpretation: by ED physician or midlevel provider: ECG, plain radiologic studies. Counseling: I had a detailed discussion with the patient and/or guardian regarding: the historical points, exam findings, and any diagnostic results supporting the discharge/admit diagnosis, lab results, radiology results. 02:38 Medication response: IVF, D50. Response to treatment: the patient's symptoms have tw4 mildly improved after treatment, and as a result, I will admit patient, administer antibiotics Zosyn, administer IV fluids. 07/17 21:26 Order name: Basic Metabolic Panel; Complete Time: 23:57 tw4 07/17 23:59 Interpretation: Normal except: BUN 54; CRE 5.05; GLUC 49; CO2 19; K 5.4; NA 134; GFR tw4 12; CA 8.4. 07/17 21:26 Order name: Blood Culture Adult (2) tw4 07/17 21:26 Order name: CBC with Diff; Complete Time: 23:57 tw4 07/17 23:59 Interpretation: Normal except: RBC 3.62; HGB 10.4; HCT 31.1; KIRSTEN% 85.0; LYM% 7.9; LYMA tw4 0.4. 07/17 21:26 Order name: Ckmb; Complete Time: 23:57 tw4 07/17 23:59 Interpretation: Abnormal: CKMB 6.8. tw4 09/09 21:26 Order name: CPK; Complete Time: 23:57 07/17 23:59 Interpretation: Abnormal: CPK 1859. 07/17 21:26 Order name: Lactate; Complete Time: 23:57 07/18 00:00 Interpretation: Within normal limits: LAC 2.0. 07/17 21:26 Order name: LFT's; Complete Time: 23:57 07/17 23:59 Interpretation: Normal except: AST 158; ALK 432; BILID 0.4; ALB 2.9; GLOB 5.3; A/G 0.5. 07/17 21:26 Order name: Lipase; Complete Time: 23:57 07/18 00:00 Interpretation: Within normal limits: LIP 90. 07/17 21:26 Order name: Procalcitonin; Complete Time: 23:57 07/17 21:26 Order name: Protime (+inr); Complete Time: 23:57 07/17 21:26 Order name: Ptt, Activated; Complete Time: 23:57 07/17 21:26 Order name: Troponin (emerg Dept Use Only); Complete Time: 23:57 07/18 00:00 Interpretation: Abnormal: TROPED 0.05. 07/17 21:26 Order name: Chest Single View XRAY 07/17 21:26 Order name: Accucheck; Complete Time: 21:33 07/17 21:26 Order name: Cardiac monitoring; Complete Time: 21:33 07/17 21:26 Order name: EKG - Nurse/Tech; Complete Time: 21:33 07/17 21:26 Order name: IV Saline Lock - Large Bore; Complete Time: 21:54 07/17 21:26 Order name: Labs collected and sent; Complete Time: 21:54 07/17 21:26 Order name: O2 Per Protocol; Complete Time: 21:34 07/17 21:26 Order name: O2 Sat Monitoring; Complete Time: 21:34 07/17 21:26 Order name: CT Head Brain wo Cont tw4 EC:30 Rate is 120 beats/min. Rhythm is regular. QRS [place] is Normal. MT interval is normal. QT tw4 interval is normal. No Q waves. T waves are Inverted in leads II, III, aVF. No ST changes noted. Interpreted by me. Reviewed by me. Administered Medications: 07/17 21:55 Drug: Acetaminophen Suppository 650 mg Route: MT; rr5 23:00 Follow up: Response: Temperature is decreased rr5 21:55 CANCELLED (Physician Discretion): Acetaminophen 1000 mg PO once tw4 22:00 Drug: NS 0.9% (30 ml/kg) 30 ml/kg Route: IV; Rate: bolus; Site: right forearm; rr5 07/18 02:56 Follow up: Response: No adverse reaction; IV Status: Completed infusion; IV Intake: rr5 3150ml 07/17 22:15 Drug: D50W 50 ml Route: IVP; Site: right forearm; rr5 23:07 Follow up: Response: No adverse reaction rr5 22:30 Drug: Zosyn 3.375 grams Route: IVPB; Infused Over: 60 mins; Site: right forearm; rr5 23:30 Follow up: Response: No adverse reaction; IV Status: Completed infusion; IV Intake: rr5 100ml 07/18 00:03 Drug: D50W 50 ml {Note: CBG 64mg/dl.} Route: IVP; Site: right forearm; rr5 01:00 Follow up: Response: Blood sugar is elevated rr5 00:58 Drug: D5-1/2 NS 1000 ml Route: IV; Rate: 100 ml/hr; Site: right forearm; rr5 02:55 Follow up: Response: No adverse reaction; IV Status: Infusion continued upon transfer; rr5 IV Intake: 200ml 02:00 Drug: D50W 50 ml Route: IVP; Site: right forearm; rr5 02:55 Follow up: Response: No adverse reaction rr5 Point of Care Testing: Blood Glucose: 07/17 21:33 Blood Glucose: 70 mg/dL; mt 22:49 Blood Glucose: 109 mg/dL; rr5 23:50 Blood Glucose: 64 mg/dL; rr5 07/18 00:58 Blood Glucose: 80 mg/dL; rr5 01:55 Blood Glucose: 70 mg/dL; rr5 02:43 Blood Glucose: 101 mg/dL; rr5 Ranges: Critical Glucose Levels:Adult <50 mg/dl or >400 mg/dl <40 mg/dl or >180 mg/dl Disposition: 38 Critical Care:. tw4 Disposition: 07/18/19 00:58 Transfer ordered to [facility]. Diagnosis are Hypoglycemia, unspecified, Cellulitis of left lower limb, Cerebral infarction, Acute kidney failure, unspecified. - Reason for transfer: Higher level of care. - Accepting physician is [facility] Provider. - Condition is Fair. - Problem is new. - Symptoms have improved. Critical care time excluding procedures: Critical care time: Bedside Care: 35 minutes, Consultation: 10 minutes, Family tw4 Intervention: 10 minutes. Total time: 55 minutes NIH Stroke Scale - NIH Stroke Score Date: 07/18/2019 Time: 00:27 Total Score = 2 1a. Level of Consciousness (LOC) - 1(Not Alert) 1b. Level of Consciousness (LOC) (Year \T\ Age) - 0(Both) 1c. LOC Commands (Open \T\ Closes Eyes/Pre Billing Clinician) - 0(Both) 2. Best Gaze (Lateral Gaze Paresis) - 0(Normal) 3. Visual Field Loss - 0(No visual loss) 4. Facial Palsy - 0(Normal) 5a. Left Arm: Motor (10-second hold) - 0(No drift) 5b. Right Arm: Motor (10-second hold) - 0(No drift) 6a. Left Leg: Motor (5-second hold - always test supine) - 1(Drift) 6b. Right Leg: Motor (5-second hold - always test supine) - 0(No drift) 7. Limb Ataxia (finger/nose \T\ heel/clark - test with eyes open) - 0(Absent) 8. Sensory Loss (pinprick arms/legs/face) - 0(Normal) 9. Best Language: Aphasia (description/naming/reading) - 0(No aphasia) 10. Dysarthria (speech clarity - read or repeat words) - 0(Normal) 11. Extinction and Inattention (visual/tactile/auditory/spatial/personal) - 0(No abnormality) Initials: tw4 NIH Stroke Scale - NIH Stroke Score Date: 07/18/2019 Time: 01:30 Total Score = 7 1a. Level of Consciousness (LOC) - 1(Not Alert) 1b. Level of Consciousness (LOC) (Year \T\ Age) - 1(One) 1c. LOC Commands (Open \T\ Closes Eyes/Pre Billing Clinician) - 0(Both) 2. Best Gaze (Lateral Gaze Paresis) - 1(Partial gaze palsy) 3. Visual Field Loss - 0(No visual loss) 4. Facial Palsy - 0(Normal) 5a. Left Arm: Motor (10-second hold) - 0(No drift) 5b. Right Arm: Motor (10-second hold) - 0(No drift) 6a. Left Leg: Motor (5-second hold - always test supine) - 1(Drift) 6b. Right Leg: Motor (5-second hold - always test supine) - 0(No drift) 7. Limb Ataxia (finger/nose \T\ heel/clark - test with eyes open) - 0(Absent) 8. Sensory Loss (pinprick arms/legs/face) - 0(Normal) 9. Best Language: Aphasia (description/naming/reading) - 1(Mild to moderate aphasia) 10. Dysarthria (speech clarity - read or repeat words) - 1(Mild to Moderate) 11. Extinction and Inattention (visual/tactile/auditory/spatial/personal) - 1(Present) Initials: rr5 Signatures: Dispatcher [employer] EDGreer Wilcox RN RN bb Delvin Armijo MD MD tw4 Valentin Booth RN RN rr5 Corrections: (The following items were deleted from the chart) 07/17 21:55 21:26 Acetaminophen 1000 mg PO once ordered. 21:55 21:54 Acetaminophen 1000 mg PO once ordered. tw4 4 07/18 00:30 00:27 Abdomen/GI: Soft, non-tender, with normal bowel sounds. No distension or tw4 tympany. No guarding or rebound. No evidence of tenderness throughout. Back: No spinal tenderness. No costovertebral tenderness. Full range of motion. MS/ Extremity: Pulses equal, no cyanosis. Neurovascular intact. Full, normal range of motion. tw4 02:56 00:58 07/18/2019 00:58 Transfer ordered to [facility]. Diagnosis is rr5 Hypoglycemia, unspecified; Cellulitis of left lower limb; Cerebral infarction; Acute kidney failure, unspecified. Reason for transfer: Higher level of care. Accepting physician is [facility] Provider. Condition is Fair. Problem is new. Symptoms have improved. tw4
[2019-07-18] MEDS ORDERED: D50W 25 GM/50 ML SYRINGE IV ONE (01:59)
[2019-07-18 03:14] VITALS: BP 134/57; TEMP 98.4; O2SAT 100
--- NOTE | 2019-07-18 07:43 | RAD REPORT ---
EXAM DESCRIPTION: RAD - Chest Single View - 07/17/2019 9:45 pm CLINICAL HISTORY: Fever COMPARISON: None. TECHNIQUE: AP portable chest image was obtained 2142 hours . FINDINGS: No infiltrate or focal lung finding. Sternotomy wires are in place. Heart and vasculature are normal. No measurable pleural effusion and no pneumothorax. No acute bony abnormality seen. No ac [place] aortic findings suspected. IMPRESSION: No acute cardiopulmonary process.
--- NOTE | 2019-07-18 10:37 | EKG ---
Test Date: 2019-07-17 Test Time: 21:29:40 Shipping Packer: AYANA MEASUREMENT RESULTS: Intervals: Rate: 120 UT: 130 QRSD: 92 QT: 324 QTc: 457 Gardner: P: 42 UT: 130 QRS: 67 T: -55 INTERPRETIVE STATEMENTS: Sinus tachycardia Cannot rule out Inferior infarct, age undetermined Abnormal ECG No previous ECG available for comparison Electronically Signed On 07-18-19 10:36:32 CDT by Teo Novoa
--- NOTE | 2019-07-18 10:42 | RAD REPORT ---
EXAM DESCRIPTION: CT - Head Brain Wo Cont - 07/18/2019 4:12 am CLINICAL HISTORY: 68 years Male, CONFUSED TECHNIQUE: 5 mm axial images were obtained along with 3 mm reformatted coronal and sagittal images. This exam was performed according to our departmental dose-optimization program, which includes autom ated exposure control, adjustment of the mA and/or kV according to patient size and/or use of iterati ve reconstruction technique. COMPARISON: None. FINDINGS: No acute abnormal extracerebral fluid collections are demonstrated. The cortical sulci, ventricles, and cisterns are within normal limits. There is a focal area of decreased attenuation within the right thalamic nucleus suspicious for acute lacunar infarct. The visualized portions of the paranasal sinuses and mastoid air cells are clear. IMPRESSION: 1. Findings suspicious for acute lacunar infarct within the right basal ganglia. NOTIFICATION: Results were discussed with Dr. Armijo at 10:25 PM. Electronically signed by: Catrachito Haque MD 07/17/2019 10:25 PM CDT Due to temporary technical issues with the PACS/Fluency reporting system, reports are being signed by the in house radiologist as a courtesy to ensure prompt reporting. The interpreting radiologist is f ully responsible for the content of the report.
== END 2019-07-18 02:56 | disposition short-term general hospital (02) ==
LOC: ER 21:24
DX: N17.9 Acute kidney failure, unspecified (principal); I63.9 Cerebral infarction, unspecified; E16.2 Hypoglycemia, unspecified; L03.116 Cellulitis of left lower limb
CPT/HCPCS: 96365; 93005; 87040 ×2; 85025; 80048; 36415; 82550; 85610; 82962 ×6; 80076; 83605; 85730; 84484; 82553; 83690; 84145; 70450; 71045; 96375; 99285; 96366; J2543; J7030

== ENCOUNTER 2019-08-08 10:46 | Inpatient (IN) | payer MEDICARE, OTHER ==
[2019-08-08 11:14] LABS: Absolute Lymphocytes (CBC) 1.5 K/uL (0.7-4.9); Basophils % 1.2 % (0-1.3); Hematocrit 22.3 % (39.6-49.0); Lymphocytes % 21.7 % (15.3-44.8); MPV 8.6 fL (7.6-11.3); RBC Red Blood Cell Count 2.65 M/uL (4.33-5.43)
[2019-08-08 11:19] LABS: Protime INR 1.11
[2019-08-08 11:32] LABS: ALT/SGPT 15 U/L (12-78); AST/SGOT 20 U/L (15-37); Albumin 2.4 g/dL (3.4-5.0); Alkaline Phosphatase 220 U/L (45-117); BUN Blood Urea Nitrogen 25 mg/dL (7-18); Bicarbonate 22 mmol/L (21-32); Bilirubin Direct 0.2 mg/dL (0-0.2); Bilirubin Total 0.4 mg/dL (0.2-1.0); Glucose Level 113 mg/dL (74-106); Magnesium 1.8 mg/dL (1.8-2.4); NT PRO-BNP 17968 pg/mL (<125); Potassium 4.6 mmol/L (3.5-5.1); Protein, Total 7.9 g/dL (6.4-8.2); Sodium Level 138 mmol/L (136-145); Troponin (Emerg Dept Use Only) < 0.02 ng/mL (0.0-0.045)
--- NOTE | 2019-08-08 11:34 | RAD REPORT ---
EXAM DESCRIPTION: [place] Single View08/08/2019 11:25 am CLINICAL HISTORY: Shortness of breath COMPARISON: July 17, 2019 FINDINGS: Small to moderate bilateral pleural effusions. Bibasilar opacities. Upper lobes appear yasmeen ar. Postsurgical changes involve the chest. IMPRESSION: Small to moderate bilateral pleural effusions Bibasilar opacities probably atelectasis less likely pneumonia and can be monitored on subsequent exa m
--- NOTE | 2019-08-08 12:17 | EKG ---
Test Date: 2019-08-08 Test Time: 11:00:31 Telegraphic Typewriter Operator Chief: ENE MEASUREMENT RESULTS: Intervals: Rate: 69 CA: 116 QRSD: 98 QT: 448 QTc: 480 Chancellor: P: 36 CA: 116 QRS: 62 T: 90 INTERPRETIVE STATEMENTS: Normal sinus rhythm Nonspecific ST and T wave abnormality Prolonged QT Abnormal ECG Compared to ECG 07/17/2019 21:29:40 ST (T wave) deviation now present Prolonged QT interval now present Sinus tachycardia no longer present Myocardial infarct finding no longer present Electronically Signed On 08-08-19 12:17:27 CDT by Aj Boggs
--- NOTE | 2019-08-08 13:57 | ER ---
Nurse's Notes [facility] Name: Sotero Francois Age: 68 yrs Sex: Male : 1950 Arrival Date: 08/08/2019 Time: 10:45 Bed 13 Private MD: Diagnosis: Heart failure;Anemia in chronic kidney disease Presentation: 08/08 10:46 Presenting complaint: EMS states: sent here from [facility] for Hemoglobin aa5 7.3. Transition of care: patient was received from another setting of care (long-term care facility), [facility]. Onset of symptoms was August 2019. Care prior to arrival: None. 10:46 Method Of Arrival: EMS: [facility] aa5 10:46 Acuity: RADHIKA 3 aa5 10:50 Risk Assessment: Do you want to hurt yourself or someone else? Patient reports no rb1 desire to harm self or others. Initial Sepsis Screen: Does the patient meet any 2 criteria? No. Patient's initial sepsis screen is negative. Does the patient have a suspected source of infection? No. Patient's initial sepsis screen is negative. Historical: - Allergies: 10:50 No Known Allergies; rb1 - Home Meds: 10:50 atorvastatin Oral [Active]; Cyclobenzaprine Oral [Active]; Enalapril Oral [Active]; rb1 gabapentin Oral [Active]; Metformin Oral [Active]; 10:50 aspirin 81 mg Oral chew 1 tab once daily [Active]; Augmentin 500-125 mg Oral tab 1 tab rb1 every 12 hours [Active]; Flomax 0.4 mg Oral cp24 1 cap once daily [Active]; Levemir FlexTouch 100 unit/mL (3 mL) subcutaneous inpn 10 units nightly [Active]; Lipitor 40 mg Oral tab 1 tab once daily [Active]; metoprolol tartrate 100 mg Oral tab 1 tab 2 times per day [Active]; Nephro-Nikhil 0.8 mg oral tab 1 tab daily [Active]; Novolog 100 unit/mL Sub-Q soln 3 units three times a day [Active]; ranitidine HCl 150 mg Oral cap 1 cap 2 times per day [Active]; sennosides 8.6 mg oral tab 1 tabs twice a day [Active]; Santyl 250 unit/gram Topical oint once daily for wound care [Active]; - PMHx: 10:50 CAD; Diabetes - NIDDM; Hypertension; rb1 - PSHx: 10:50 CABG; Hernia repair; left foot; rb1 - Immunization history:: Adult Immunizations up to date. - Social history:: The patient lives in a detention, Smoking status: Patient/guardian denies using tobacco. - Ebola Screening: : Patient negative for fever greater than or equal to 101.5 degrees Fahrenheit, and additional compatible Ebola Virus Disease symptoms. Screenin:50 Abuse screen: Denies threats or abuse. Nutritional screening: No deficits noted. rb1 Tuberculosis screening: No symptoms or risk factors identified. Fall Risk No fall in past 12 months (0 pts). Secondary diagnosis (15 points) impaired mobility, IV access (20 points). Ambulatory Aid- Crutches/Cane/Walker (15 pts). Gait- Impaired (20 pts.). Mental Status- Oriented to own ability (0 pts). Total Massey Fall Scale indicates High Risk Score (45 or more points). Fall prevention measures have been instituted. Side Rails Up X 2 Placed Close to Nursing Station 1:1 Attendant Assigned Frequent Obs/Assessments Occuring Family Present and informed to notify staff if the need to leave the bedside As available patient and family educated on Fall Prevention Program and Strategies. Assessment: 10:50 General: Appears in no apparent distress. comfortable, Behavior is calm, cooperative, rb1 Denies fever. Pain: Denies pain. Neuro: Level of Consciousness is awake, alert, obeys commands, Oriented to person, place, time, situation. Cardiovascular: Capillary refill < 3 seconds is brisk in bilateral fingers. Respiratory: Airway is patent Respiratory effort is even, unlabored, Respiratory pattern is regular, symmetrical. GI: No signs and/or symptoms were reported involving the gastrointestinal system. : No signs and/or symptoms were reported regarding the genitourinary system. Derm: Skin is pink, warm \T\ dry. Musculoskeletal: Had surgery on his left foot x 3 months ago, was discharged from [facility] today. Is being [facility] in [facility] for left foot. 11:50 Reassessment: Patient appears in no apparent distress at this time. No changes from rb1 previously documented assessment. 12:50 Reassessment: Patient appears in no apparent distress at this time. Patient and/or rb1 family updated on plan of care and expected duration. Pain level reassessed. Patient is alert, oriented x 3, equal unlabored respirations, skin warm/dry/pink. 13:50 Reassessment: Patient appears in no apparent distress at this time. No changes from rb1 previously documented assessment. Patient denies pain at this time. 14:42 Reassessment: Patient appears in no apparent distress at this time. Patient and/or rb1 family updated on plan of care and expected duration. Pain level reassessed. Patient is alert, oriented x 3, equal unlabored respirations, skin warm/dry/pink. 14:52 Reassessment: Called report to PEGGY Heard. Information from the [facility] was given. All rb1 questions asked and answered. 14:57 Reassessment: Pt. transfer to the floor delayed due to Santyl order from pharmacy. rb1 Santyl is needed in order to perform wound care. 15:30 Reassessment: Patient appears in no apparent distress at this time. Patient and/or rb1 family updated on plan of care and expected duration. Pain level reassessed. Patient is alert, oriented x 3, equal unlabored respirations, skin warm/dry/pink. Patient denies pain at this time. Vital Signs: 10:49 Temp 98.9(O); rb1 10:49 BP 125 / 74; Pulse 70; Resp 17; Pulse Ox 94% on R/A; Pain 0/10; rb1 11:45 BP 119 / 59; Pulse 67; Resp 19; Pulse Ox 90% on R/A; Pain 0/10; rb1 12:45 BP 134 / 64; Pulse 69; Resp 17; Pulse Ox 98% on R/A; Pain 0/10; rb1 13:45 BP 129 / 65; Pulse 66; Resp 16; Pulse Ox 95% on R/A; Pain 0/10; rb1 14:42 BP 138 / 58; Pulse 71; Resp 18; Pulse Ox 94% on R/A; Pain 0/10; rb1 ED Course: 10:45 Patient arrived in ED. aa5 10:45 Arm band placed on. aa5 10:46 Triage completed. aa5 10:48 Bigg Trevino MD is Attending Physician. gs 10:50 Patient has correct armband on for positive identification. Bed in low position. Call rb1 light in reach. Side rails up X 1. Pulse ox on. NIBP on. 11:06 Initial lab(s) drawn, by me, sent to lab. EKG done, by printer technician. reviewed by Bigg Trevino MD T\T\S collected, blood band applied to patient. Inserted saline lock: 20 gauge in right antecubital area, using aseptic technique. Blood collected. 11:12 EKG done, by printer technician. reviewed by iBgg Trevino MD. at1 11:27 XRAY Chest (1 view) In Process Unspecified. EDMS 11:48 Halima Gutierrez, RN is Primary Nurse. rb1 13:56 Danish Simmons MD is Hospitalizing Provider. gs 15:45 Wound care: to Surgical located on left ankle was cleaned with with Normal Saline, rb1 dressed with 4X4s, Kerlix, ABD pads, Applied Santyl to the wound bed, wet to dry dressing, applied ABD pad, wrapped in Kerlix using Aseptic Technique. Reapplied the splint that was in place and wrapped it with darian bandages. Looked at wound care orders from [place] to dress the wound. Pt. tolerated well. . 15:58 No provider procedures requiring assistance completed. Patient admitted, IV remains in rb1 place. Administered Medications: 15:50 Drug: Santyl 250 unit/g 1 application Route: Topical; Site: affected area; rb1 Outcome: 13:56 Decision to Hospitalize by Provider. gs 15:58 Patient left the ED. rb1 15:58 Admitted to Tele accompanied by tech, family with patient, via wheelchair, room 405, rb1 with chart, Report called to PEGGY Heard 15:58 Condition: stable 15:58 Instructed on the need for admit. Signatures: Dispatcher [employer] EDMS Raji Quevedo1 Yane Pickard, RN RN aa5 Dilia Newton, clinical program director EKG Tat1 Halima Gutierrez, RN RN rb1 Bigg Trevino MD MD gs
--- NOTE | 2019-08-08 13:57 | EDPHYS ---
Physician Documentation [facility] Name: Sotero Francois Age: 68 yrs Sex: Male : 1950 Arrival Date: 08/08/2019 Time: 10:45 Bed 13 Private MD: ED Physician Bigg Trevino HPI: 08/08 13:40 This 68 yrs old Male presents to ER via EMS with complaints of Abnormal Lab gs Results. 13:40 Onset: The symptoms/episode began/occurred yesterday. Abdominal pain: none is gs appreciated. Modifying factors: The symptoms are alleviated by nothing, the symptoms are aggravated by nothing. Associated signs and symptoms: Pertinent positives: shortness of breath, Pertinent negatives: chest pain. Severity of symptoms: At their worst the symptoms were moderate in the emergency department the symptoms are unchanged. Historical: - Allergies: 10:50 No Known Allergies; rb1 - Home Meds: 10:50 atorvastatin Oral [Active]; Cyclobenzaprine Oral [Active]; Enalapril Oral [Active]; rb1 gabapentin Oral [Active]; Metformin Oral [Active]; 10:50 aspirin 81 mg Oral chew 1 tab once daily [Active]; Augmentin 500-125 mg Oral tab 1 tab rb1 every 12 hours [Active]; Flomax 0.4 mg Oral cp24 1 cap once daily [Active]; Levemir FlexTouch 100 unit/mL (3 mL) subcutaneous inpn 10 units nightly [Active]; Lipitor 40 mg Oral tab 1 tab once daily [Active]; metoprolol tartrate 100 mg Oral tab 1 tab 2 times per day [Active]; Nephro-Nikhil 0.8 mg oral tab 1 tab daily [Active]; Novolog 100 unit/mL Sub-Q soln 3 units three times a day [Active]; ranitidine HCl 150 mg Oral cap 1 cap 2 times per day [Active]; sennosides 8.6 mg oral tab 1 tabs twice a day [Active]; Santyl 250 unit/gram Topical oint once daily for wound care [Active]; - PMHx: 10:50 CAD; Diabetes - NIDDM; Hypertension; rb1 - PSHx: 10:50 CABG; Hernia repair; left foot; rb1 - Immunization history:: Adult Immunizations up to date. - Social history:: The patient lives in a [facility], Smoking status: Patient/guardian denies using tobacco. - Ebola Screening: : Patient negative for fever greater than or equal to 101.5 degrees Fahrenheit, and additional compatible Ebola Virus Disease symptoms. ROS: 13:40 All other systems are negative. gs Exam: 11:04 ECG was reviewed by the Attending Physician. gs 13:40 Head/Face: Normocephalic, atraumatic. Eyes: Pupils equal round and reactive to light, gs extra-ocular motions intact. Lids and lashes normal. Conjunctiva and sclera are non-icteric and not injected. Cornea within normal limits. Periorbital areas with no swelling, redness, or edema. ENT: Nares patent. No nasal discharge, no septal abnormalities noted. Tympanic membranes are normal and external auditory canals are clear. Oropharynx with no redness, swelling, or masses, exudates, or evidence of obstruction, uvula midline. Mucous membranes moist. Neck: Trachea midline, no thyromegaly or masses palpated, and no cervical lymphadenopathy. Supple, full range of motion without nuchal rigidity, or vertebral point tenderness. No Meningismus. Chest/axilla: Normal chest wall appearance and motion. Nontender with no deformity. No lesions are appreciated. Cardiovascular: Regular rate and rhythm with a normal S1 and S2. No gallops, murmurs, or rubs. Normal PMI, no JVD. No pulse deficits. Respiratory: Lungs have equal breath sounds bilaterally, clear to auscultation and percussion. No rales, rhonchi or wheezes noted. No increased work of breathing, no retractions or nasal flaring. Abdomen/GI: Soft, non-tender, with normal bowel sounds. No distension or tympany. No guarding or rebound. No evidence of tenderness throughout. 13:40 Skin: Warm, dry with normal turgor. Normal color with no rashes, no lesions, and no evidence of cellulitis. MS/ Extremity: Pulses equal, no cyanosis. Neurovascular intact. Full, normal range of motion. Neuro: Awake and alert, GCS 15, oriented to person, place, time, and situation. Cranial nerves II-XII grossly intact. Motor strength 5/5 in all extremities. Sensory grossly intact. Cerebellar exam normal. Normal gait. 13:40 Constitutional: The patient appears alert, awake. 13:40 Cardiovascular: Edema: 3+ edema to level of left midcalf and right midcalf. 13:40 Abdomen/GI: Rectal exam: Stool: guaiac negative. 13:40 Musculoskeletal/extremity: Perfusion: the patient is normally perfused throughout, wound left leg. Vital Signs: 10:49 Temp 98.9(O); rb1 10:49 BP 125 / 74; Pulse 70; Resp 17; Pulse Ox 94% on R/A; Pain 0/10; rb1 11:45 BP 119 / 59; Pulse 67; Resp 19; Pulse Ox 90% on R/A; Pain 0/10; rb1 12:45 BP 134 / 64; Pulse 69; Resp 17; Pulse Ox 98% on R/A; Pain 0/10; rb1 13:45 BP 129 / 65; Pulse 66; Resp 16; Pulse Ox 95% on R/A; Pain 0/10; rb1 14:42 BP 138 / 58; Pulse 71; Resp 18; Pulse Ox 94% on R/A; Pain 0/10; rb1 MDM: 10:57 Patient medically screened. 13:40 Differential diagnosis: gastritis, hemorrhoids, gi bleed. Data reviewed: vital signs, nurses notes. Response to treatment: the patient's symptoms have markedly improved after treatment, and as a result, I will admit patient. 08/08 10:52 Order name: Basic Metabolic Panel; Complete Time: 11:48 08/08 10:52 Order name: CBC with Diff; Complete Time: 11:48 08/08 10:52 Order name: LFT's; Complete Time: 11:48 08/08 10:52 Order name: Magnesium; Complete Time: 11:48 08/08 10:52 Order name: NT PRO-BNP; Complete Time: 11:48 08/08 10:52 Order name: PT-INR; Complete Time: 11:48 08/08 10:52 Order name: Troponin (emerg Dept Use Only); Complete Time: 11:48 08/08 10:52 Order name: XRAY Chest (1 view); Complete Time: 11:48 08/08 10:52 Order name: EKG; Complete Time: 10:54 08/08 10:52 Order name: Cardiac monitoring; Complete Time: 10:54 08/08 10:52 Order name: EKG - Nurse/Tech; Complete Time: 11:06 08/08 10:52 Order name: Type And Screen 08/08 13:47 Order name: ABO/RH no charge; Complete Time: 13:56 EDAR 08/08 10:52 Order name: IV Saline Lock; Complete Time: 11:06 08/08 10:52 Order name: Labs collected and sent; Complete Time: 11: 08/08 10:52 Order name: O2 Per Protocol; Complete Time: 10:54 08/08 10:52 Order name: O2 Sat Monitoring; Complete Time: 10:54 EC:04 Rate is 69 beats/min. Rhythm is regular. VA interval is normal. QRS interval is normal. gs T waves are Inverted in leads I, aVL. Clinical impression: NSR w/ Non-specific ST/T Changes. Interpreted by me. Administered Medications: 15:50 Drug: Santyl 250 unit/g 1 application Route: Topical; Site: affected area; rb1 Disposition: 08/08/19 13:56 Hospitalization ordered by Danish Simmons for Observation. Preliminary diagnosis are Heart failure, Anemia in chronic kidney disease. - Bed requested for Telemetry/MedSurg (observation). - Status is Observation. rb1 - Condition is Stable. - Problem is new. - Symptoms are unchanged. UTI on Admission? No Critical care time excluding procedures: 13:40 Critical care time: Bedside Care: 10 minutes, Consultation: 10 minutes, Family gs Intervention: 10 minutes. Total time: 30 minutes Signatures: Dispatcher [employer] EDYane Johnson RN RN [id number] Halima Gutierrez RN RN rb1 Bigg Trevino MD MD Monica Luevano Corrections: (The following items were deleted from the chart) 14:03 13:56 Hospitalization Ordered by Danish Simmons MD for Observation. Preliminary diagnosis gm is Heart failure; Anemia in chronic kidney disease. Bed requested for Telemetry/MedSurg (observation). Status is Observation. Condition is Stable. Problem is new. Symptoms are unchanged. UTI on Admission? No. gs 15:58 14:03 08/08/2019 13:56 Hospitalization Ordered by Danish Simmons MD for Observation. rb1 Preliminary diagnosis is Heart failure; Anemia in chronic kidney disease. Bed requested for Telemetry/MedSurg (observation). Status is Observation. Condition is Stable. Problem is new. Symptoms are unchanged. UTI on Admission? No. gm
[2019-08-08] MEDS ORDERED: COLLAGENASE 30 GM OINTMENT TOP ONE (15:15)
[2019-08-08] MEDS: INSULIN LISPRO 100 UNIT/1 ML SQ SCH (17:45)
[2019-08-08 17:58] VITALS: BMI 30.1
[2019-08-08 18:13] LABS: Urine Appearance CLEAR; Urine Bilirubin NEGATIVE (NEG); Urine Blood TRACE (NEG); Urine Color YELLOW; Urine Glucose TRACE (NEG); Urine Protein 2+ (NEG); Urine Specific Gravity 1.015 (1.005-1.030); Urine Urobilinogen 0.2 mg/dL (0.2-1.0)
[2019-08-08 18:26] LABS: Urine Microscopic Reflex ORDER UMIC
[2019-08-08 18:27] LABS: Urine Bacteria <20 /HPF (NONE SEEN); Urine Culture Reflex Order REFLEXED; Urine RBC <5 /HPF (NONE SEEN)
[2019-08-08] MEDS ORDERED: ACETAMINOPHEN 500 MG TAB PO PRN (19:43)
[2019-08-08] MEDS ORDERED: ONDANSETRON 4 MG/2 ML VIAL IV PRN (19:43)
[2019-08-08] MEDS: INSULIN -REGULAR HUMAN 50 UNIT/0.5 ML ML SQ SCH ×2 (19:43→23:23)
[2019-08-08] MEDS: FUROSEMIDE 40 MG/4 ML VIAL IV SCH (20:00)
[2019-08-08 20:21] LABS: Hematocrit 20.9 % (39.6-49.0)
[2019-08-08] MEDS ORDERED: BIFIDO LONGUM PO SCH (21:00)
[2019-08-08] MEDS ORDERED: RANITIDINE HCL 150 MG PO SCH (21:00)
[2019-08-08] MEDS: ATORVASTATIN 40 MG TAB PO SCH (21:00)
[2019-08-08] MEDS: TAMSULOSIN 0.4 MG SR CAP PO SCH (21:00)
[2019-08-08] MEDS: LACTOBACILLUS/ACIDOPHILUS TAB PO SCH (21:00)
[2019-08-08] MEDS ORDERED: METOPROLOL TAR 50 MG TAB PO SCH (21:00)
[2019-08-08] MEDS: AMOX/K CLAV 500 MG TAB PO SCH (21:00)
[2019-08-08] MEDS ORDERED: ACIDOPHILUS PO SCH (21:00)
[2019-08-08] MEDS ORDERED: HOME MED 1 EA UNK (Insulin Detemir [Levemir Flextouch] 10 UNITS) SQ SCH (21:00)
[2019-08-08] MEDS: SENOSIDES 8.6 MG TAB PO SCH (21:00)
[2019-08-08] MEDS ORDERED: HOME MED 1 EA UNK (Metoprolol Tartrate [Lopressor] 100 MG) PO SCH (21:00)
[2019-08-08] MEDS: METOPROLOL TAR 50 MG TAB PO SCH (21:00)
[2019-08-08] MEDS ORDERED: FUROSEMIDE 20 MG/ 2ML VIAL IV ONE (21:44)
[2019-08-08 22:21] LABS: Ferritin 108.4 ng/mL (26-388)
[2019-08-08] MEDS ORDERED: NA CHLORIDE 0.9% 250 ML ONE (22:55)
[2019-08-08] MEDS: INSULIN GLARGINE 100 UNITS/ML SQ SCH (23:21)
--- NOTE | 2019-08-09 03:36 | HP ---
Date of Admission: 08/08/2019 Chief Complaint: Abnormal labs, shortness of breath. Code Status: Full. History Of Present Illness: Patient is a 68-year-old male who was sent over from a rehab facility in [place] for abnormal labs. Patient is a 68-year-old male with a past medical history of coronary artery disease status post CABG, congestive heart failure, diabetes, hypertension, hyperlipidemia, chronic kidney disease, who was in his usual state of health until several weeks ago, had a fall and ankle fracture, had surgery for correction with pins, however, subsequently had postsurgical infection, had removal of the hardware and has been in rehab since then for the past 4 weeks. Patient was transferred to the ER due to abnormal labs, a hemoglobin of 7.5. Patient denies any hematemesis. No hemoptysis. No melena. No apparent source of bleeding. No bleeding from the ankle wound either. The patient has been on Augmentin for the ankle wound and Santyl. Patient does complain of shortness of breath, sleeps on 2 pillows at night. Also has some swelling of his lower extremities. In the ER, his vital signs showed some decrease O2 saturations up to 90%. He was placed on supplemental oxygen. Workup revealed a BNP of approximately 18,000. Creatinine was 2.67. White count was normal. Hemoglobin was 7.5. Hemoglobin from 1 month ago was 10.4. Patient was then referred for admission. When seen in the ER, he was awake, alert, oriented x3, in some mild distress. Past Medical History: Hypertension; hyperlipidemia; coronary artery disease, status post CABG; diabetes mellitus type 2, insulin requiring; congestive heart failure; chronic kidney disease. Past Surgical History: Multiple hernia repairs, left partial nephrectomy, cholecystectomy, left ankle repair with pins with subsequent surgical site infection and removal of hardware. Allergies: NO KNOWN DRUG ALLERGIES. Medications: List reviewed. Social History: Patient denies any tobacco use or alcohol use. Patient was in a rehab facility for physical therapy for the past month in [place]. Patient is . Currently is nonweightbearing on the left leg and is wheelchair bound at this time due to his restrictions. Family History: Patient states cancer runs in the family. Review of Systems: Ten-point system reviewed, negative except as per HPI. Physical Examination: Vital Signs: Temperature 98.9, heart rate 70, blood pressure 125/74, respirations 17, O2 of 90% on room air. General: Awake, alert, oriented x3. Elderly male, obese, BMI 30, ill-appearing , in some mild distress. HEENT: Normocephalic, atraumatic. PERRLA, EOMI. Moist mucous membranes. Oropharynx is clear. Poor dentition. Conjunctivae anicteric. Neck: Supple. No JVD. Trachea midline. CV: S1 and S2. Regular rate and rhythm. Peripheral pulses weak. Respiratory: Moving air well bilaterally. No wheezing or stridor. No use of accessory muscles. Gastrointestinal: Abdomen is soft, nontender, mildly distended. Patient has multiple ventral hernias, which are reducible. Positive bowel sounds. No guarding or rigidity. Extremities: No clubbing or cyanosis. Patient has pedal edema. Neuro: Cranial nerves 2 through 12 intact grossly. No focal neurological deficit. Speech is normal. Skin: Patient has a large lateral ankle wound with some necrotic tissue present. No foul smelling odor. Patient also has a small ulceration on the plantar aspect of the left foot. No drainage. Psych: Mood is okay. Affect is full. Insight and judgment are fair. Laboratory Data: INR 1.11. Sodium 138, potassium 4.6, chloride 107, CO2 of 22 , BUN 25, creatinine 2.67, glucose 113, calcium 8.3, magnesium 1.8. Troponin less than 0.02. BNP 17,968. Albumin is 2.4. WBC 7.1, H and H 7.5 and 22.3, platelets 332, neutrophils 66%. Chest x-ray personally reviewed shows mild-to- moderate bilateral pleural effusions; bibasilar opacity, probably atelectasis, less likely pneumonia, can be monitored on subsequent exam. EKG: Normal sinus rhythm, rate of 69, nonspecific ST-T wave abnormalities, prolonged QT. Assessment And Plan: A 68-year-old male with: 1. Shortness of breath, likely related to congestive heart failure. 2. Acute congestive heart failure exacerbation, unknown ejection fraction. We will obtain echocardiogram. Start on congestive heart failure guidelines. Consult Cardiology if not improving. 3. Chronic kidney disease. Stage III. We will continue to monitor creatinine and obtain Nephrology consultation. 4. Normocytic, normochromic anemia, unclear etiology. No hematemesis, melena , or hemoptysis. Maybe dilutional. We will continue to monitor H and H. We will repeat in 6 hours. 5. Obesity, body mass index 30. 6. Essential hypertension. We will resume home medications as appropriate. 7. Mixed hyperlipidemia. We will continue statin. 8. Diabetes mellitus type 2, insulin requiring with hyperglycemia. We will continue home medications and continue sliding scale insulin. Monitor blood glucose levels. 9. Coronary artery disease, [place] artery and [place] heart, status post coronary artery bypass graft. We will resume home medications. No angina at this time. 10. Recent left ankle repair with surgical wound infection, status post removal of hardware, now with open wound. We will continue with Santyl. Patient is on Augmentin. Continue with wound healing evaluation and no source of active infection at this time. 11. Deep venous thrombosis prophylaxis with Lovenox. Admit patient to Med-Surg, place as inpatient. Length of stay, greater than 2 midnights. PILAR Voice ID: [id number] MTDSandy
[2019-08-09 04:01] LABS: Absolute Lymphocytes (CBC) 1.6 K/uL (0.7-4.9); Hematocrit 23.6 % (39.6-49.0); MPV 8.7 fL (7.6-11.3); RBC Red Blood Cell Count 2.82 M/uL (4.33-5.43)
[2019-08-09 04:04] LABS: Albumin 2.1 g/dL (3.4-5.0); Bilirubin Total 0.4 mg/dL (0.2-1.0); Magnesium 1.8 mg/dL (1.8-2.4); Phosphorus 4.3 mg/dL (2.5-4.9); Potassium 4.6 mmol/L (3.5-5.1); Protein, Total 7.3 g/dL (6.4-8.2)
[2019-08-09] MEDS: INSULIN -REGULAR HUMAN 50 UNIT/0.5 ML ML SQ SCH ×4 (07:30→21:00)
[2019-08-09] MEDS ORDERED: INSULIN ASPART 3 UNIT SQ SCH (08:00)
[2019-08-09] MEDS ORDERED: INFLUENZA VACCINE (for 3y+) 0.5 ML DOSE IMVAC ONE (08:00)
[2019-08-09] MEDS: METOPROLOL TAR 50 MG TAB PO SCH ×2 (08:25→21:41)
[2019-08-09] MEDS: AMOX/K CLAV 500 MG TAB PO SCH ×2 (08:25→21:41)
[2019-08-09] MEDS: LACTOBACILLUS/ACIDOPHILUS TAB PO SCH ×2 (08:25→21:41)
[2019-08-09] MEDS: SENOSIDES 8.6 MG TAB PO SCH ×2 (08:26→21:41)
[2019-08-09] MEDS: ASPIRIN 81 MG CHEWABLE TABLET PO SCH (08:26)
[2019-08-09] MEDS: FUROSEMIDE 40 MG/4 ML VIAL IV SCH ×3 (08:26→21:41)
[2019-08-09] MEDS: RANITIDINE 150 MG TABLET PO SCH (08:26)
[2019-08-09] MEDS: INSULIN LISPRO 100 UNIT/1 ML SQ SCH ×3 (08:28→15:39)
[2019-08-09] MEDS: COLLAGENASE 30 GM OINTMENT TOP SCH (08:30)
[2019-08-09] MEDS ORDERED: LISINOPRIL 10 MG TAB PO SCH (09:00)
[2019-08-09] MEDS ORDERED: AMLODIPINE 10 MG TAB PO SCH (09:00)
[2019-08-09] MEDS ORDERED: COLLAGENASE 30 GM OINTMENT TOP SCH ×2 (09:00)
[2019-08-09 10:32] LABS: CKMB Creatine Kinase MB 2.1 ng/mL (0.3-3.6); Uric Acid 6.1 mg/dL (3.5-7.2)
--- NOTE | 2019-08-09 10:45 | RAD REPORT ---
EXAM DESCRIPTION: US - Renal Ultrasound-Complete - 08/09/2019 10:36 am CLINICAL HISTORY: CRISTIANE Flank pain COMPARISON: No comparisons FINDINGS: Both kidneys are normal in size, shape and echotexture. The right kidney measures 12.3 x 6.0 x 5.4 cm. No hydronephrosis, focal mass or perinephric fluid. The left kidney measures 11.0 x 4.4 x 3.3 cm. No hydronephrosis, focal mass or perinephric fluid. Ech ogenic area in the left kidney cortex measuring 12 mm is likely related to prior surgery. The urinary bladder is incompletely distended without gross abnormality seen. IMPRESSION: Postsurgical left kidney, otherwise unremarkable renal sonography.
--- NOTE | 2019-08-09 11:48 | ECHO ---
HEIGHT: 5 ft 8 in WEIGHT: 191 lb 0 oz DATE OF STUDY: 08/09/[address]: Danish Simmons MD 2-DIMENSIONAL: YES M.MODE: YES DOPPLER: YES COLOR FLOW: YES TDS: NO PORTABLE: NO DEFINITY: NO BUBBLE STUDY: NO DIAGNOSIS: CONGESTIVE HEART FAILURE CARDIAC HISTORY: CATHERIZATION: NO SURGERY: YES PROSTHETIC VALVE: NO PACEMAKER: NO MEASUREMENTS (cm) DIASTOLIC (NORMALS) SYSTOLIC (NORMALS) IVSd 1.2 (0.6-1.2) LA Diam 4.0 (1.9-4.0) LVEF 64% LVIDd 4.9 (3.5-5.7) LVIDs 3.2 (2.0-3.5) %FS 35% LVPWd 1.3 (0.6-1.2) Ao Diam 2.3 (2.0-3.7) 2 DIMENSIONAL ASSESSMENT: RIGHT ATRIUM: NORMAL LEFT ATRIUM: DILATED RIGHT VENTRICLE: NORMAL LEFT VENTRICLE: NORMAL TRICUSPID VALVE: NORMAL MITRAL VALVE: NORMAL PULMONIC VALVE: NORMAL AORTIC VALVE: NORMAL PERICARDIAL EFFUSION: NONE AORTIC ROOT: NORMAL LEFT VENTRICULAR WALL MOTION: NORMAL DOPPLER/COLOR FLOW: MILD MITRAL AND TRICUSPID REGURGITATION. ESTIMATED RIGHT VENTRICULAR SYSTOLIC PRESSURE 40mmHg. MILD PULMONARY HYPERTENSION. COMMENTS: NORMAL LEFT VENTRICULAR EJECTION FRACTION. DILATED LEFT ATRIUM. MILD MITRAL AND TRICUSPID REGURGITATION. MILD PULMONARY HYPERTENSION. TECHNOLOGIST: Shamika PAUL
--- NOTE | 2019-08-09 12:24 | CON ---
Identifying Data: Mr. Francois is 68-year-old. History Of Present Illness: Mr. Francois is 68. He came to the hospital because of dyspnea. He has been found to be in pulmonary edema. On physical exam, he seemed to have a left pleural effusion. On the chest x-ray, there are small bilateral pleural effusions. He has been found to have severe an emia with a hemoglobin dropping as low as 6.9. He has received at least 1 unit of packed red blood c ells. He is also known to have a very abnormal renal function. His GFR this morning is 19 mL a tone te, stage 4 kidney failure. It is actually a little bit worse than yesterday's, which was 24. Analialbino dinora is not aware of having kidney failure. He had a myocardial infarction followed by coronary bypass surgery in 12/2018 done at [facility]. We do not have any of his records there, do not know h is anatomy before that and after that, there were no other coronary interventions. He does not have a pacemaker. He had an ankle fracture. He had pins and then the pins had to be removed because of s epsis. He is in a nonweightbearing state for his left leg hoping for the lesion to heal without any hardware in place. I do not know if there are plans for further operations, but because the patient was becoming progressively more dyspneic, he was brought to the hospital. He seems to have at least 3 reasons for dyspnea readily evident, namely the profound anemia, renal failure, and bilateral pleur al effusions. He has improved a lot with diuresis. An echocardiogram has been ordered, but not yet done. Allergies: HE HAS NO DRUG ALLERGIES. Social History: He does not use tobacco. He did remotely. Medications: Patient's medications have been insulin, collagenase, metoprolol atorvastatin, Flomax, aspirin, Augmentin, amlodipine, insulin, ranitidine, sennosides, and folic acid. Physical Examination: Vital signs: 5 feet 8 inches. 191 pounds. General: Alert, oriented, pleasant, not in distress. Lungs: Left-sided lower lung egophony. No crackles presently. No wheezes. Heart: Within normal limits. No significant murmur. Apical impulse does not seem to be laterally d isplaced or enlarged. Abdomen: Soft. Extremities: Mild edema. Distal pulses palpable. I did not unwrap the left leg. I only check puls es on the right. They are palpable, but not strong. Laboratory Data: An electrocardiogram reveals sinus rhythm, nonspecific ST abnormality. Impression: The patient has developed pulmonary edema, pleural effusions probably from a combination of heart and renal failure and anemia. We will get an echocardiogram. Transfuse him, diuresis him. Nephrology consult will be obtained. His diuresis may result in worsening renal function. He may quickly become a dialysis patient, not sure when, but he needs to maintain at least some level of diu resis to be able to breathe comfortably. His present level of fluid balance is probably close to wha t I would consider good. ALEXA/YURIDIA Voice ID: [id number] Report ID: [id number]
[2019-08-09 14:02] LABS: Urine Protein/Creatinine Ratio 1.03 ratio (<0.15)
--- NOTE | 2019-08-09 17:15 | PN ---
Date of Progress Note: 08/09/2019 Subjective: Patient seen and examined. Chart reviewed and case discussed with RN. Patient otherwise doing well. at the bedside. Case discussed with Dr. Figueroa. Medication List: Reviewed. Objective: Vital Signs: Temperature 98.3, heart rate 70, blood pressure 141/65 , respirations 19, O2 of 95% on room air. General: Awake, alert, oriented x3, not in any acute distress, slightly ill- appearing male. CVS: S1, S2. Regular rate and rhythm. Peripheral pulses present. Respiratory: Diminished breath sounds. Some crackles present. No wheezing or stridor. Gastrointestinal: Abdomen is soft, nontender, nondistended. Positive bowel sounds. Extremities: No clubbing, cyanosis. The patient has pedal edema. Neurologic: Nonfocal. Skin: Patient has wound to the left ankle, bandaged in a sugar tong cast. Laboratory Data: Sodium 140, potassium 4.6, chloride 109, CO2 of 24, BUN 30, creatinine 3.22, glucose 132, uric acid 6.1, calcium 8.1. Phosphorus 4.3, magnesium 1.8. Iron 19, TIBC 216, transferrin 154, ferritin 108. Albumin 2.1. WBC 6.2, H and H 7.9 and 23.6, platelets 294. Wound culture pending. Stool occult pending. Urine culture also pending. Echocardiogram shows EF of 64%, dilated left atrium, mild mitral and tricuspid regurg, mild pulmonary hypertension. Renal ultrasound shows postsurgical left kidney, otherwise unremarkable renal sonogram. Assessment And Plan: A 68-year-old male with: 1. Shortness of breath secondary to congestive heart failure, renal failure, and anemia, currently on 2 L via nasal cannula, improving. 2. Acute congestive heart failure, diastolic dysfunction. Echocardiogram reviewed shows ejection fraction of 64%. We will continue with congestive heart failure guidelines and diuretics. Appreciate Dr. Boggs' input. 3. Chronic kidney disease, stage 4. The patient was on dialysis previously at [facility]. Appreciate Nephrology input. We will continue to monitor. Creatinine has bumped up slightly due to diuretics. The patient continues to make urine. 4. Acute worsening anemia of chronic disease, status post 1 unit PRBCs. No source of active bleeding at this time. We will continue to monitor. The patient will likely benefit from IV iron infusions once diuresis has been accomplished. 5. Obesity. BMI 30. 6. Essential hypertension. We will continue with home medications. 7. Mixed hyperlipidemia. Continue statin. 8. Diabetes mellitus type 2, insulin requiring with hyperglycemia. Continue home medications and sliding scale insulin. Monitor Accu-Cheks. 9. Coronary artery disease, [place] artery and [place] heart, status post coronary artery bypass graft. The patient is pain-free at this time. 10. Recent left ankle repair with surgical wound infection, status post removal of hardware, now with open wound. Continue Santyl and Augmentin. Wound dressing daily. No active infection at this time. 11. Deep venous thrombosis prophylaxis with Lovenox. 12. Mild pulmonary hypertension. Continue diuretics. Monitor kidney function. Likely discharge in the next 24 to 48 hours depending on clinical improvement. PILAR Voice ID: [id number] Report ID: [id number]
[2019-08-09] MEDS ORDERED: SOD FERRIC GLUC COMPLX/SUCROSE 250 MG in NA CHLORIDE 0.9% 250 ML IV SCH (18:00)
--- NOTE | 2019-08-09 20:54 | CON ---
Date of Consultation: 08/09/2019 Reason For Consultation: Elevated BUN and creatinine, fluid management. History Of Present Illness: This is a pleasant unfortunate 68-year-old gentleman with significant [facility] [place] medical history of diabetes since 1989, complicated with neuropathy, hypertension, hyperlipidemia, CVA back in the February of this year, coronary artery disease status post CABG back in December 2018 c omplicated with congestive heart failure. Patient recently admitted to the hospital in [facility] of mild CVA with acute kidney injury and foot infection, according to him secondary to hardware infected at that time; hardware has been removed. Patient developed acute kidney injury and required a couple of session of dialysis that he weaned from dialysis. Patient transferred to senior care i n [place] and treated and recovered, finished his antibiotic. Patient after that started feeling weak, decreased energy. Patient lab showed decreased hemoglobin down to 7.5 and elevated BUN and creatini ne. For that reason, patient came to the emergency room. Patient complained of shortness of breath without any chest pain, has orthopnea. Patient do not recall his creatinine. Upon arrival to the hospital was hypoxemic. BNP around 18,000 and again hemoglobin 7.5. Over the night, patient was started on diuresis. Patient's shortness of breath slightly subsided, still have leg swelling. Past Medical History: 1.Hypertension. 2.Hyperlipidemia. 3.Coronary artery disease, status post CABG complicated with congestive heart failure, status post C ABG back in December 2018. 4.Diabetes complicated with neuropathy since 1989. 5.Hyperlipidemia. 6.CVA. 7.Foot infection with hardware removal. 8.Chronic kidney disease, status post acute kidney injury, required dialysis back in July 2019. Allergies: NO KNOWN DRUGS ALLERGY. Social History: He was in senior care. Denies smoking. Denies drinking. Denies drugs abuse. Family History: Positive for cancer. Review of Systems: Head and Neck: No red eye. No ear pain. GI: No nausea. No vomiting. : No polyuria. No dysuria. No hematuria. RECRUITING AND SELECTION CONSULTANT: Not applicable. Respiratory: Has shortness of breath. Cardiovascular: Has leg swelling. Endocrine: No polydipsia. Skin: No rash. Neurologic: Has neuropathy. Musculoskeletal: Generalized fatigue. Physical Examination: Vital Signs: When I saw the patient, blood pressure 128/58, pulse of 68, afebrile. Chest: Crackles bilateral base, more prominent on the left side. Heart: S1, S2. Systolic murmur. Abdomen: Soft, nontender. Extremities: Plus edema. Dressing on the left leg and foot. Neurologic: Alert and oriented x3. No focal. No tremor. Home Medications: Folic acid, Flomax, aspirin, atorvastatin, insulin, metoprolol, amoxicillin, amlod ipine, ranitidine. Current medications in the hospital include Augmentin, amlodipine, atorvastatin, Lasix 40 mg b.i.d., Zofran, ranitidine, and Flomax. Laboratory Data: WBC 6.2, H and H of 7.9/23.6, platelet of 294. Sodium 140, potassium 4.6, bicarb 2 4, BUN 30, creatinine 3.2, GFR of 19, calcium 8.1, phosphorus 4.1, magnesium 1.8. T-sat of 8.8. Carlos A ritin of 108. PTH 144. Renal ultrasound, .01/16 with a questionable echogenic area suspect scar from surgery. Chest x-ray, cardiomegaly with congestion, bilateral. Echocardiogram; ejection fraction of 64%, dilated atrium, mild pulmonary hypertension. Assessment And Plan: Acute kidney injury on advanced chronic kidney disease, mostly secondary to car diorenal diabetes nephropathy with exacerbation secondary to cardiorenal over volume. 1.I am going to go ahead and increase his Lasix to 40 mg every 8 hours to establish better volume co ntrol. We will utilize blood pressure for more diuresis. Given exacerbation of congestive heart vitaliy lure, I am going to decrease his amlodipine to 5 mg and we will follow up with Cardiology. Obstructi on has been ruled out. 2.Hypertension, as above. We will utilize the blood pressure for more diuresis. Given the acute ki dney injury, I am going to be reluctant on adding any MOISÉS inhibitor or ARB. 3.We will request the record from [facility] for his kidney history. 4.Coronary artery disease, congestive heart failure, as by Cardiology. 5.Foot infection. Continue current antibiotics. We will follow up with Surgery. 6.Diabetes, as by Primary. 7.Anemia of iron deficiency, anemia/chronic kidney disease. I am going to start the patient on IV i raj and we will monitor the patient. BRIGID Voice ID: [id number] Report ID: [id number]
[2019-08-09] MEDS: INSULIN GLARGINE 100 UNITS/ML SQ SCH (21:41)
[2019-08-09] MEDS: TAMSULOSIN 0.4 MG SR CAP PO SCH (21:41)
[2019-08-09] MEDS: ATORVASTATIN 40 MG TAB PO SCH (21:41)
[2019-08-10 05:02] LABS: Absolute Lymphocytes (CBC) 1.2 K/uL (0.7-4.9); Basophils % 1.1 % (0-1.3); Hematocrit 22.9 % (39.6-49.0); Lymphocytes % 19.7 % (15.3-44.8); MPV 8.6 fL (7.6-11.3); RBC Red Blood Cell Count 2.75 M/uL (4.33-5.43)
[2019-08-10 05:46] LABS: Bilirubin Total 0.3 mg/dL (0.2-1.0); Ferritin 139.1 ng/mL (26-388); Folic Acid, (Folate) 16.6 ng/mL (3.1-17.5); Phosphorus 4.3 mg/dL (2.5-4.9); Protein, Total 7.1 g/dL (6.4-8.2); Thyroid Stimulating Hormone 2.51 uIU/mL (0.360-3.740)
[2019-08-10] MEDS: FUROSEMIDE 40 MG/4 ML VIAL IV SCH (06:40)
[2019-08-10] MEDS: INSULIN -REGULAR HUMAN 50 UNIT/0.5 ML ML SQ SCH ×2 (07:30→11:30)
[2019-08-10] MEDS: INSULIN LISPRO 100 UNIT/1 ML SQ SCH ×2 (08:23→12:45)
[2019-08-10] MEDS: METOPROLOL TAR 50 MG TAB PO SCH (08:24)
[2019-08-10] MEDS: RANITIDINE 150 MG TABLET PO SCH (08:24)
[2019-08-10] MEDS: AMOX/K CLAV 500 MG TAB PO SCH (08:24)
[2019-08-10] MEDS: ASPIRIN 81 MG CHEWABLE TABLET PO SCH (08:24)
[2019-08-10] MEDS: LACTOBACILLUS/ACIDOPHILUS TAB PO SCH (08:24)
[2019-08-10] MEDS: SENOSIDES 8.6 MG TAB PO SCH (08:24)
[2019-08-10] MEDS: COLLAGENASE 30 GM OINTMENT TOP SCH (08:55)
[2019-08-10] MEDS ORDERED: AMLODIPINE 5 MG TAB PO SCH (09:00)
[2019-08-10 09:35] VITALS: O2SAT 97
[2019-08-10 16:12] VITALS: BP 115/59; TEMP 97.8
[2019-08-10 23:22] LABS: Rheumatoid Factor NEG (NEG)
--- NOTE | 2019-08-11 19:02 | DS ---
Date of Discharge: 08/10/2019 Consultants: 1.Dr. Figueroa with Nephrology. 2.Dr. Boggs with Cardiology. Admitting Diagnoses: 1.Shortness of breath. 2.Acute congestive heart failure. 3.Chronic kidney disease stage 3. 4.Normocytic, normochromic anemia, likely anemia of chronic disease. 5.Obesity, BMI 30. 6.Essential hypertension. 7.Mixed hyperlipidemia. 8.Diabetes mellitus type 2, insulin requiring with hyperglycemia. 9.Coronary artery disease, [place] artery and [place] heart, status post coronary artery bypass grafti ng without angina. 10.Recent left ankle repair with surgical wound infection status post removal of hardware, now with open wound, on Augmentin and Santyl. Discharge Diagnoses: 1.Shortness of breath, improved, likely multifactorial secondary to congestive heart failure, renal failure, anemia, now off supplemental oxygen. 2.Acute congestive heart failure, diastolic dysfunction, ejection fraction 64%. 3.Chronic kidney disease stage 4, was recently on dialysis, but dialysis was discontinued. 4.Normocytic, normochromic anemia, status post 1 unit PRBCs, likely due to anemia of chronic disease . 5.Obesity, BMI 30. 6.Essential hypertension, stable. 7.Hyperlipidemia, on statin. 8.Diabetes mellitus type 2, insulin requiring with hyperglycemia. 9.Coronary artery disease, [place] artery and [place] heart, status post coronary artery bypass grafti ng without angina. 10.Recent left ankle repair with surgical wound infection, status post removal of hardware, currentl y on Augmentin and Santyl. No active infection at this time. 11.Mild pulmonary hypertension. Hospital Course: The patient is a 68-year-old male, who was recently discharged from inpatient rehab after ankle infection and is currently nonweightbearing with sugar-tong splint, follows with Orthope dic at outside facility, comes in with shortness of breath. The patient has a complicated past medic al history including coronary artery disease status post CABG, congestive heart failure, diabetes, hy pertension, hyperlipidemia, chronic kidney disease, recently on dialysis at [facility], was sent to the [facility] ER for abnormal labs. The patient was found to have a hemoglobin which was low. The patient w as admitted to the hospital. He was given 1 unit of PRBCs for drop in his hemoglobin. This was thou ght to be worsening of his chronic anemia due to anemia of chronic kidney disease. There was no terri temesis, hemoptysis, or melena. His guaiac was negative. The patient was seen by Nephrology due to his chronic kidney disease. From review of previous records, the patient apparently had been on dial ysis, which was discontinued. Regarding his shortness of breath, this was multifactorial due to his anemia, congestive heart failure, and renal disease. The patient was seen by Cardiology and echocard iogram was done, which showed EF in the 60s. He has diastolic dysfunction. He was also found to hav e some mild pulmonary hypertension. The patient was diuresed. He had good urinary output with negat lexus fluid balance. The patient will be continued on Lasix at home. The patient told to stop his met formin due to his kidney dysfunction at this time. The patient's kidney function remained stable. Edison posada does have chronic kidney disease. Followup: He will need to follow up with Nephrology and primary care physician within 1 week and fol low up with Cardiology, Dr. Boggs, in 2 weeks. Patient may benefit from IV iron infusion as his iro n studies showed iron deficiency. The patient also [facility] , follow up with primary orthopedic surgeon as scheduled. Activity: Nonweightbearing, left lower extremity. Diet: Diabetic. Medications: As per medication reconciliation list. Physical Examination: General: Awake, alert, oriented x3, elderly male. CV: S1, S2. Respiratory: Moving air well bilaterally. Abdomen: Soft, nontender, nondistended. Positive bowel sounds. Extremities: No clubbing, cyanosis, or edema. Neurologic: Nonfocal. Musculoskeletal: Left lower extremity decreased range of motion at the ankle, currently in sugar-ton g splints. Skin: The patient has left ankle wound bandaged. No current signs of infection. Total time spent discharging the patient was 35 minutes. /YURIDIA Voice ID: [id number] Report ID: [id number]
--- NOTE | 2019-08-11 19:03 | PN ---
Date of Progress Note: 08/10/2019 Subjective: Patient was admitted with acute kidney injury on chronic kidney disease. We reviewed th e record from [facility]. Apparently, patient had wound infection with enterococcus, had acute kidney inju ry, required 2 session of dialysis. Patient has acute kidney injury secondary to toxic acute tubular necrosis, poor perfusion ATN and sepsis. Patient also was on metformin and ARB before. Patient cam e with shortness of breath over volume. After diuresis, kidney function started improving. Physical Examination: Vital Signs: Blood pressure 140/66, pulse of 64. Patient had good urine output of 1 L. Chest: Crackles bilateral base. Heart: S1, S2. Regular. Abdomen: Soft, nontender. Extremities: Trace edema. Laboratory Data: WBC 6.1, H and H 7.9/22.9, platelets 284. Sodium 137, potassium 4, bicarb 22, BUN 31, creatinine 2.8, calcium 7.4, phos 4.2. PTH 144. Assessment And Plan: 1.Acute kidney injury on advanced chronic kidney disease. The acute component secondary to cardiore nal, chronic kidney disease secondary to renal mass loss, diabetes nephropathy, and cardiorenal statu s post acute tubular necrosis and required dialysis back in July, 2 session of dialysis, then he wean. I am going to continue the patient on current diuresis dose 40 b.i.d. The patient will be cl eared from the Renal standpoint for discharge planning to follow up in the office in 2 to 3 weeks. 2.Hypertension, controlled, optimal. Continue current medication. 3.Iron-deficiency anemia. Continue IV iron. 4.Coronary artery disease. 5.Congestive heart failure. Continue current diuresis. 6.Cerebrovascular accident. Continue supportive care. 7.Hardware infection, status post removal by primary. SUDARSHAN/YURIDIA Voice ID: [id number] Report ID: [id number]
[2019-08-13 17:44] LABS: Hepatitis C Virus RNA (PCR)log <1.18 log IU/mL
[2019-08-14 11:36] LABS: HIV AG/AB 4TH GEN Non-reactive (Non-reactive)
[2019-08-14 21:11] LABS: Albumin, (SPE) 2.3 g/dL (3.8-4.8); Alpha-1-Globulins 0.4 g/dL (0.2-0.3); Alpha-2-Globulins 0.9 g/dL (0.5-0.9); Gamma Globulins 1.6 g/dL (0.8-1.7); INTERPRETATION REPORT
[2019-08-15 20:03] LABS: HBsAG Nonreactive (Nonreactive)
== END 2019-08-10 16:50 | disposition home health service (06) | DRG 291 ==
LOC: ER 10:46 → ERHOLD 13:46 → 4TH 14:53
PROVIDERS: ADMIT Family Medicine; ATTEND Family Medicine
DX: I13.0 Hypertensive heart and chronic kidney disease with heart failure and stage 1 through stage 4 chronic kidney disease, or unspecified chronic kidney disease (principal); I50.33 Acute on chronic diastolic (congestive) heart failure; N18.4 Chronic kidney disease, stage 4 (severe); N17.9 Acute kidney failure, unspecified; T81.41XA Infection following a procedure, superficial incisional surgical site, initial encounter; I25.10 Atherosclerotic heart disease of native coronary artery without angina pectoris; E11.22 Type 2 diabetes mellitus with diabetic chronic kidney disease; E11.65 Type 2 diabetes mellitus with hyperglycemia; Z86.73 Personal history of transient ischemic attack (TIA), and cerebral infarction without residual deficits; Z95.1 Presence of aortocoronary bypass graft; D63.1 Anemia in chronic kidney disease; E66.9 Obesity, unspecified; Z68.29 Body mass index [BMI] 29.0-29.9, adult; E78.5 Hyperlipidemia, unspecified; I27.20 Pulmonary hypertension, unspecified
CPT/HCPCS: 36415; 36430; 71045; 76770; 80048; 80053; 80069; 80076; 81003; 81015; 82274; 82553; 82570; 82607; 82728; 82746; 82962; 83520; 83540; 83735; 83880; 83970; 84100; 84156; 84165; 84443; 84466; 84484; 84550; 85014; 85018; 85025; 85044; 85610; 86021; 86038; 86160; 86225; 86317; 86430; 86704; 86706; 86850; 86900; 86901; 87070; 87077; 87086; 87088; 87186; 87205; 87340; 87389; 87522; 93005; 93306; 94760; 99251; 99285; J1815; J1940; J2916; J3590; P9016

== ENCOUNTER 2019-08-21 21:59 | Emergency (ER) | payer MEDICARE ==
--- NOTE | 2019-08-22 02:44 | EDPHYS ---
Physician Documentation [facility] Name: Sotero Francois Age: 68 yrs Sex: Male : 1950 Arrival Date: 08/21/2019 Time: 22:00 Bed 17 Private MD: ED Physician John Richardson HPI: 08/22 02:36 This 68 yrs old Male presents to ER via Wheelchair with complaints of Open jr8 Wound on Ankle. 02:36 Onset: The symptoms/episode began/occurred 1 month(s) ago. Associated signs and jr8 symptoms: Pertinent negatives: fever. Pt has chronic wound to lateral malleolus of the left ankle after a failed surgical repair. Historical: - Allergies: 08/21 22:42 No Known Allergies; bb - Home Meds: 22:42 aspirin 81 mg Oral chew 1 tab once daily [Active]; atorvastatin Oral [Active]; bb Augmentin 500-125 mg Oral tab 1 tab every 12 hours [Active]; Cyclobenzaprine Oral [Active]; Enalapril Oral [Active]; Flomax 0.4 mg Oral cp24 1 cap once daily [Active]; gabapentin Oral [Active]; Levemir FlexTouch 100 unit/mL (3 mL) subcutaneous inpn 10 units nightly [Active]; Lipitor 40 mg Oral tab 1 tab once daily [Active]; Metformin Oral [Active]; metoprolol tartrate 100 mg Oral tab 1 tab 2 times per day [Active]; Nephro-Nikhil 0.8 mg Oral tab 1 tab daily [Active]; Novolog 100 unit/mL Sub-Q soln 3 units three times a day [Active]; ranitidine HCl 150 mg Oral cap 1 cap 2 times per day [Active]; Santyl 250 unit/gram Topical oint once daily for wound care [Active]; sennosides 8.6 mg Oral tab 1 tabs twice a day [Active]; - PMHx: 22:42 CAD; Diabetes - NIDDM; Hypertension; bb - PSHx: 22:42 CABG; Hernia repair; left foot; bb - Immunization history:: Adult Immunizations up to date. - Social history:: Smoking status: Patient/guardian denies using tobacco. - Ebola Screening: : No symptoms or risks identified at this time. ROS: 08/22 02:36 Constitutional: Negative for fever, chills, and weight loss, Eyes: Negative for injury, jr8 pain, redness, and discharge, ENT: Negative for injury, pain, and discharge, Neck: Negative for injury, pain, and swelling, Cardiovascular: Negative for chest pain, palpitations, and edema, Respiratory: Negative for shortness of breath, cough, wheezing, and pleuritic chest pain, Abdomen/GI: Negative for abdominal pain, nausea, vomiting, diarrhea, and constipation, Back: Negative for injury and pain. MS/extremity: Positive for pain, of the left lateral malleolus. Skin: Positive for chronic wound to left lateral malleolus . Exam: 02:38 Constitutional: This is a well developed, well nourished patient who is awake, alert, jr8 and in no acute distress. Head/Face: Normocephalic, atraumatic. Eyes: Pupils equal round and reactive to light, extra-ocular motions intact. Lids and lashes normal. Conjunctiva and sclera are non-icteric and not injected. Cornea within normal limits. Periorbital areas with no swelling, redness, or edema. ENT: Nares patent. No nasal discharge, no septal abnormalities noted. Tympanic membranes are normal and external auditory canals are clear. Oropharynx with no redness, swelling, or masses, exudates, or evidence of obstruction, uvula midline. Mucous membranes moist. Neck: Trachea midline, no thyromegaly or masses palpated, and no cervical lymphadenopathy. Supple, full range of motion without nuchal rigidity, or vertebral point tenderness. No Meningismus. Chest/axilla: Normal chest wall appearance and motion. Nontender with no deformity. No lesions are appreciated. Cardiovascular: Regular rate and rhythm with a normal S1 and S2. No gallops, murmurs, or rubs. Normal PMI, no JVD. No pulse deficits. Respiratory: Lungs have equal breath sounds bilaterally, clear to auscultation and percussion. No rales, rhonchi or wheezes noted. No increased work of breathing, no retractions or nasal flaring. Back: No spinal tenderness. No costovertebral tenderness. Full range of motion. 02:38 Skin: chronic wound to left lateral ankle with healthy appearing granulation tissue with overlying hematoma and not active hematoma or surrounding cellulitis. . Vital Signs: 08/21 22:42 BP 120 / 65; Pulse 73; Resp 16 S; Temp 98.5(O); Pulse Ox 99% on R/A; Weight 83.91 kg; bb Height 5 ft. 8 in. (172.72 cm) (R); Pain 01/15; 08/22 01:30 BP 122 / 59; Pulse 76; Resp 18; Pulse Ox 100% on R/A; wh 02:55 BP 139 / 69; Pulse 76; Resp 18; Pulse Ox 100% on R/A; wh 08/21 22:42 Body Mass Index 28.13 (83.91 kg, 172.72 cm) bb MDM: 08/21 22:56 Patient medically screened. jr8 08/22 02:39 Data reviewed: vital signs, nurses notes, radiologic studies, and as a result, I will [facility] discharge patient. Data interpreted: Pulse oximetry: on room air is 100 %. Interpretation: normal. ED course: Pt wound without signs of infection, xray does not show osteonecrosis, pt to FU with wound healing on Wednesday and will call his ortho surgeon in the morning.. 08/21 23:51 Order name: Ankle Right 3 View XRAY 8 08/21 23:51 Order name: Ankle Left 3 View XRAY 8 Administered Medications: No medications were administered Disposition: 02:58 Co-signature as Attending Physician, John Richardson MD. maylin Disposition: 08/22/19 02:43 Discharged to Home. Impression: Open wound of ankle, foot and toes. - Condition is Stable. - Discharge Instructions: Ankle Fracture, Diabetes and Foot Care, Wound Care. - Medication Reconciliation Form, Thank You Letter form. - Follow up: Private Physician; When: 2 - 3 days; Reason: Recheck today's complaints, Re-evaluation by your physician. - Problem is an ongoing problem. - Symptoms are unchanged. Signatures: Dispatcher [employer] EDMS John Richardson MD MD pkGreer Saunders RN RN Manny Gan PA PA [facility] Ghislaine Austin Corrections: (The following items were deleted from the chart) 02:55 02:43 08/22/2019 02:43 Discharged to Home. Impression: Open wound of ankle, foot and wh toes. Condition is Stable. Forms are Medication Reconciliation Form, Thank You Letter, Antibiotic Education, Prescription Opioid Use. Follow up: Private Physician; When: 2 - 3 days; Reason: Recheck today's complaints, Re-evaluation by your physician. Problem is an ongoing problem. Symptoms are unchanged. jr8
--- NOTE | 2019-08-22 02:44 | ER ---
Nurse's Notes [facility] Name: Sotero Francois Age: 68 yrs Sex: Male : 1950 Arrival Date: 08/21/2019 Time: 22:00 Bed 17 Private MD: Diagnosis: Open wound of ankle, foot and toes Presentation: 08/21 22:34 Presenting complaint: Patient states: he broke his ankle last month and has a splint to bb left lower extremity pt was hospitalized for a stroke here and discharged here on August 10 for heart failure pt has open wound on lateral aspect of left ankle and was getting wound care while here but now wound seems to be getting worse. Transition of care: patient was not received from another setting of care. Onset of symptoms was August 2019. Risk Assessment: Do you want to hurt yourself or someone else? Patient reports no desire to harm self or others. Initial Sepsis Screen: Does the patient meet any 2 criteria? No. Patient's initial sepsis screen is negative. Does the patient have a suspected source of infection? Yes: Bone or joint infection. Care prior to arrival: None. 22:34 Method Of Arrival: Wheelchair bb 22:34 Acuity: RADHIKA 3 bb Triage Assessment: 22:42 General: Appears in no apparent distress. uncomfortable, Behavior is calm, cooperative. bb Pain: Complains of pain in left foot Pain currently is 2 out of 10 on a pain scale. Neuro: Level of Consciousness is awake, alert, obeys commands, Oriented to person, place, time, situation. Cardiovascular: No deficits noted. Respiratory: Respiratory effort is even, unlabored. Derm: Skin is pink, warm \T\ dry. Musculoskeletal: splint to left lower extremity. Historical: - Allergies: 22:42 No Known Allergies; bb - Home Meds: 22:42 aspirin 81 mg Oral chew 1 tab once daily [Active]; atorvastatin Oral [Active]; bb Augmentin 500-125 mg Oral tab 1 tab every 12 hours [Active]; Cyclobenzaprine Oral [Active]; Enalapril Oral [Active]; Flomax 0.4 mg Oral cp24 1 cap once daily [Active]; gabapentin Oral [Active]; Levemir FlexTouch 100 unit/mL (3 mL) subcutaneous inpn 10 units nightly [Active]; Lipitor 40 mg Oral tab 1 tab once daily [Active]; Metformin Oral [Active]; metoprolol tartrate 100 mg Oral tab 1 tab 2 times per day [Active]; Nephro-Nikhil 0.8 mg Oral tab 1 tab daily [Active]; Novolog 100 unit/mL Sub-Q soln 3 units three times a day [Active]; ranitidine HCl 150 mg Oral cap 1 cap 2 times per day [Active]; Santyl 250 unit/gram Topical oint once daily for wound care [Active]; sennosides 8.6 mg Oral tab 1 tabs twice a day [Active]; - PMHx: 22:42 CAD; Diabetes - NIDDM; Hypertension; bb - PSHx: 22:42 CABG; Hernia repair; left foot; bb - Immunization history:: Adult Immunizations up to date. - Social history:: Smoking status: Patient/guardian denies using tobacco. - Ebola Screening: : No symptoms or risks identified at this time. Screenin:50 Abuse screen: Denies threats or abuse. Denies injuries from another. Nutritional wh screening: No deficits noted. Tuberculosis screening: No symptoms or risk factors identified. Fall Risk Fall in past 12 months (25 points). Assessment: 23:08 General: Appears in no apparent distress. Behavior is calm, cooperative, appropriate wh for age. Pain: Complains of pain in Left Ankle Pain does not radiate. Pain currently is 2 out of 10 on a pain scale. Quality of pain is described as aching. Neuro: Level of Consciousness is awake, alert, obeys commands, Oriented to person, place, time, situation, Appropriate for age. Cardiovascular: Heart tones S1 S2. Respiratory: Airway is patent Respiratory effort is even, unlabored, Respiratory pattern is regular, symmetrical, Breath sounds are clear bilaterally. GI: Abdomen is flat, non-distended. : No signs and/or symptoms were reported regarding the genitourinary system. EENT: No signs and/or symptoms were reported regarding the EENT system. Derm: Wound noted LEft Ankle Wound is OPen wound. Musculoskeletal: Circulation, motion, and sensation intact. 08/22 00:30 Reassessment: Patient appears in no apparent distress at this time. No changes from previously documented assessment. Patient and/or family updated on plan of care and expected duration. Pain level reassessed. Patient is alert, oriented x 3, equal unlabored respirations, skin warm/dry/pink. Patient denies pain at this time. 01:59 Reassessment: Patient appears in no apparent distress at this time. No changes from previously documented assessment. Patient and/or family updated on plan of care and expected duration. Pain level reassessed. Patient is alert, oriented x 3, equal unlabored respirations, skin warm/dry/pink. Patient denies pain at this time. 02:54 Reassessment: Patient appears in no apparent distress at this time. No changes from previously documented assessment. Patient and/or family updated on plan of care and expected duration. Pain level reassessed. Patient is alert, oriented x 3, equal unlabored respirations, skin warm/dry/pink. Patient denies pain at this time. Vital Signs: 08/21 22:42 BP 120 / 65; Pulse 73; Resp 16 S; Temp 98.5(O); Pulse Ox 99% on R/A; Weight 83.91 kg; bb Height 5 ft. 8 in. (172.72 cm) (R); Pain 01/15; 08/22 01:30 BP 122 / 59; Pulse 76; Resp 18; Pulse Ox 100% on R/A; wh 02:55 BP 139 / 69; Pulse 76; Resp 18; Pulse Ox 100% on R/A; wh 08/21 22:42 Body Mass Index 28.13 (83.91 kg, 172.72 cm) ED Course: 08/21 22:00 Patient arrived in ED. ds1 22:41 Triage completed. 22:42 Arm band placed on Patient placed in an exam room, on a stretcher, on pulse oximetry. Family accompanied patient. 22:45 Ghislaine Austin is Primary Nurse. 22:49 Manny Gar PA is PHCP. jr8 22:49 John Richardson MD is Attending Physician. jr8 22:50 Patient has correct armband on for positive identification. Bed in low position. Call light in reach. Side rails up X 1. Pulse ox on. NIBP on. 08/22 02:04 Ankle Right 3 View XRAY In Process Unspecified. EDMS 02:04 Ankle Left 3 View XRAY In Process Unspecified. EDMS 02:53 No provider procedures requiring assistance completed. Patient did not have IV access during this emergency room visit. Administered Medications: No medications were administered Outcome: 02:43 Discharge ordered by MD. mckenna 02:54 Discharged to home via wheelchair. 02:54 Condition: good 02:54 Discharge instructions given to patient, Instructed on discharge instructions, follow up and referral plans. wound care, Demonstrated understanding of instructions, follow-up care, wound care, splint care. 02:55 Patient left the ED. Signatures: Dispatcher [employer] EDKS Ina Foote ds1 Greer Soni RN RN Manny Gan PA PA jr8 Ghislaine Austin Corrections: (The following items were deleted from the chart) 08/21 23:31 22:50 Fall Risk None identified. [facility]
[2019-08-22 03:50] VITALS: TEMP 98.5
[2019-08-22 03:51] VITALS: O2SAT 100
[2019-08-22 03:53] VITALS: BP 139/69
--- NOTE | 2019-08-22 06:36 | RAD REPORT ---
EXAM DESCRIPTION: RAD - Ankle Right 3 View - 08/22/2019 2:04 am CLINICAL HISTORY: wound Foot pain and swelling COMPARISON: Ankle Left 3 View dated 08/22/2019 FINDINGS: Soft tissue swelling is seen about the right ankle. Subtle bony fragmentation the distal l ateral malleolus has a chronic appearance. No acute fracture or dislocation evident. Small plantar ca lcaneal spur seen. Vascular calcifications are noted.
--- NOTE | 2019-08-22 10:02 | RAD REPORT ---
EXAM DESCRIPTION: Ankle Left 3 View CLINICAL HISTORY: Wound COMPARISON: None. FINDINGS: 3 views of the left ankle. Posterior dislocation of the tibiotalar joint with mildly displ aced talar neck fracture. Comminuted fracture of the distal fibula and avulsion fracture of the media l malleolus. Soft tissue edema. Soft tissue wound overlying the lateral malleolus. IMPRESSION: 1. Posterior ankle fracture dislocation as detailed above. 2. Soft tissue wound overlying the lateral aspect of the ankle. Electronically signed by: Hosea Denis 08/22/2019 2:17 AM CDT Due to temporary technical issues with the PACS/Fluency reporting system, reports are being signed by the in house radiologist as a courtesy to ensure prompt reporting. The interpreting radiologist is f eligioly responsible for the content of the report.
== END 2019-08-22 02:55 | disposition home or self-care (01) ==
LOC: ER 21:59
DX: S91.002A Unspecified open wound, left ankle, initial encounter (principal); I10 Essential (primary) hypertension; E11.9 Type 2 diabetes mellitus without complications; Z79.82 Long term (current) use of aspirin; Z79.4 Long term (current) use of insulin; Z95.1 Presence of aortocoronary bypass graft
CPT/HCPCS: 99283